=== PATIENT | male | born 1965 | race Caucasian/White ===

== ENCOUNTER 2020-12-30 21:21 | IRF | payer OTHER, SELFPAY ==
[2020-12-30 19:20] VITALS: BP 141/87; PULSE 99; RESP 22; TEMP 36.7; O2SAT 100; BMI 26.3
--- NOTE | 2020-12-30 19:49 | ADMGEN ---
This patient, Gilbert Virgen, was admitted to [facility] Room 222-01 at 1920. Patient/family oriented to hospital policies and general routines including ID bracelet, bed and alarms, visiting hours, pain management, procedures, bathroom and other care routines, personal items, smoking policy, room service/diet, and visiting hours. Information on how to activate the Rapid Response Team has been discussed. Patient/Family are encouraged to report perceived risks to care and to ask questions if they do not understand what they are told or what they should do.
[2020-12-30] MEDS: oxyCODONE HCL (*CRX) 5 MG TAB IR PO (21:38)
[2020-12-30 22:00] VITALS: BP 121/69; PULSE 66; RESP 14; TEMP 36.3; O2SAT 97
[2020-12-31] MEDS: oxyCODONE HCL (*CRX) 5 MG TAB IR PO ×4 (04:33→20:41)
[2020-12-31 04:58] LABS: Basophils Percent Auto 0.6 % (0.2-1.2); Eosinophils Absolute Auto 0.3 K/mm3 (0-0.3); Hematocrit 27.1 % (42.0-52.0); Hemoglobin 7.8 g/dL (14.0-18.0); Immature Granulocyte Absolute 0.02 K/mm3 (0.00-0.031); Immature Granulocyte Percent A 0.4 % (0-0.5); Lymphocytes Absolute Auto 1.29 K/mm3 (0.9-3.2); Lymphocytes Percent Auto 24.2 % (18.3-44.2); Mean Corpuscular HGB Conc 28.8 g/dl (32-36); Mean Corpuscular Hemoglobin 24.1 pg (26-34); Mean Corpuscular Volume 83.9 fl (80-100); Mean Platelet Volume 9.4 fl (7.4-10.4); Monocytes Percent Auto 18.4 % (2.6-8.5); Neutrophils Absolute Auto 2.7 K/mm3 (1.3-6.7); Neutrophils Percent Auto 50.4 % (45.5-73.1); Platelet Count Result 237 k/mm3 (150-375); Red Blood Count 3.23 M/mm3 (4.6-6.20); Red Cell Distribution Width 20.2 % (11.5-14.5); White Blood Count 5.3 K/mm3 (4.5-10.0)
[2020-12-31 05:18] LABS: Alanine Aminotransferase 71 U/L (4-50); Albumin Level 3.8 g/dL (3.5-5.1); Alkaline Phosphatase 110 U/L (38-126); Anion Gap 6 mmol/L (8-16); Aspartate Amino Transferase 103 U/L (17-59); Bilirubin,Total 0.8 mg/dL (0.2-1.3); Blood Urea Nitrogen 9 mg/dL (9-20); Calcium 9.3 mg/dL (8.4-10.2); Carbon Dioxide 27 mmol/L (22-30); Chloride 104 mmol/L (98-107); Estimated CRCL calculation 101 ml/min; Estimated Glomerular Filt Rate > 60; Glucose 101 mg/dL (75-110); Potassium 3.8 mmol/L (3.4-5.0); Sodium 137 mmol/L (137-145)
[2020-12-31 05:25] LABS: Anisocytosis 1+ (NORMAL); Hypochromasia 1+ (NORMAL); Platelet Estimate Adequate (Adequate)
[2020-12-31 06:00] VITALS: BP 164/94; PULSE 73; RESP 20; TEMP 36.1; O2SAT 100
[2020-12-31 08:00] VITALS: O2SAT 100
[2020-12-31] MEDS: THERAPEUTIC MULTIVITAMINS/MINERALS TAB (*BKC) 1 TABLET PO (09:55)
[2020-12-31] MEDS: ASPIRIN 81 MG ENTERIC TABLET PO (09:55)
[2020-12-31] MEDS: FOLIC ACID 1 MG TABLET PO (09:55)
[2020-12-31] MEDS: THIAMINE HCL 100 MG TABLET PO (09:56)
[2020-12-31] MEDS: LIDOCAINE 5% PATCH 2 PATCH TOPICAL (09:56)
[2020-12-31 12:49] VITALS: BMI 26.3
[2020-12-31 14:00] VITALS: BP 105/72; PULSE 94; RESP 16; TEMP 36.4; O2SAT 98
--- NOTE | 2020-12-31 15:24 | RPD ---
INDIVIDUALIZED PLAN OF CARE FOR Gilbert Virgen Brief Synthesis of Pre-Admission Screen, Post-Admission Evaluation and Therapy Evaluations: The patient presents to rehab with an L1 closed stable burst fracture and right lateral rib fractures 8-10 . Comorbidities include alcohol withdrawal syndrome, acute post-traumatic pain, anemia, hyponatremia, alcoholic cirrhosis, and hypertension. The complexity of the patient's medical management, nursing, and therapy needs require an inpatient rehab hospital stay with a physician-led interdisciplinary team approach. The patient?s needs will be best met in an intensive program vs. at a lower level of care. The patient requires physician services for medical oversight, management of alcohol withdrawal, acute post-traumatic pain, hyponatremia, anemia, and hypertension in setting of present comorbidities, and pain management. The patient requires nursing services for anticoagulation therapy, DVT prophylactics, infection protection, medication management and education, pressure relief, and wound care. Deficits include:ADLs, Balance, Endurance, Family Training/Education, Mobility, Pain Management, ROM, Safety, Strength, and Transfers. Nurse Care Manager/Case Management for: Discharge Planning and Patient/Family Counseling Physical Therapy: 5 days per week for 90 minutes. Treatments may include: Therapeutic Exercise, Gait Training, Neuromuscular Re-education, Transfer Training, Community Reintegration, Bed Mobility, Patient/Family Education, Wheelchair Mobility Group Therapy/Concurrent Therapy Rationales: -Improve attention span during functional activities in a distracted environment. -Enhance problem solving and/or adequate judgment skills during functional activities in a distracted environment. -Promote increased safety awareness in a distracted environment to reduce fall risk with functional tasks, transfers, and ambulation to allow a more safe, self-sufficient return to the home environment. -Improve dynamic balance skills to promote safety and independence with functional activities in a distracted environment for maximum gain. Occupational Therapy: 5 days per week for 90 minutes. Treatments may include: Therapeutic Exercise, Therapeutic Activity, Cognitive Training, Self-Care Transfer Training, Community Reintegration, Home Management, Patient/Family Education, Wheelchair Mobility Training, Energy Conservation Training Group Therapy/Concurrent Therapy Rationales: -Allow therapist to observe and teach generalization and carry-over of skills learned in individual therapy. -Enhance problem solving and sequencing skills during therapeutic activities in a distracted environment. -Promote increased safety awareness in a realistic setting to reduce fall risk with functional tasks due to visual and verbal distractions. -Increase functional level with ADLs, ADL transfers and use of adaptive equipment through therapeutic activities with others while promoting safety to allow a more safe, self-sufficient return home. Medical Prognosis: Good Anticipated Length of Stay: 10 days Rehab Goals: Eating Goal: 06-Independent Oral Hygiene Goal: 06-Independent Toileting Hygiene Goal: 06-Independent Shower/Bathe Self Goal: 05-Setup or Clean Up Assistance Upper Body Dressing Goal: 05-Setup or Clean Up Assistance Lower Body Dressing Goal: 05-Setup or Clean Up Assistance Putting On/Taking Off Footwear Goal: 05-Setup or Clean Up Assistance Rolling Left and Right Goal: 06-Independent Sit to Lying Goal: 06-Independent Lying to Sitting on Side of Bed Goal: 06-Independent Sit to Stand Goal: 06-Independent Chair/[id number] Transfer Goal: 06-Independent Toilet Transfer Goal: 06-Independent Car Transfer Goal: 06-Independent Walk 10' Goal: 06-Independent Walk 50' with Two Turns Goal: 06-Independent Walk 150' Goal: 06-Independent Walk 10' on Uneven Surface Goal: 06-Independent 1 Step (Curb) Goal: 04-Supervision or Touching Assistance 4 Steps Go
--- NOTE | 2020-12-31 15:37 | WPDREHABHP ---
H&P: HPI History of Present Illness Date/Time: 12/31/20 15:37 HISTORY OF PRESENT ILLNESS: The patient's primary rehab impairment category is orthopedic other 0 9 The etiologic diagnosis is L1 burst fracture I saw this patient [id number] on 12/31/2020 The patient is a 55-year-old male with past medical history of alcoholic cirrhosis, alcohol abuse who presented to [facility] on 12/25/2020 after suffering a fall. EMS was concerned of possible alcoholic withdrawal and possible seizure-like activity and patient was given IV Ativan. Patient was taken to a local hospital and his alcoholic level was reported as normal. Imaging revealed an L1 burst fracture without retropulsion and greater than 50% height loss and right rib fractures 9th through 10th with possible hemothorax and concerns of cirrhosis. Orthopedic spine service was consulted and patient was treated with non operative management using a Aj brace with weight-bearing as tolerated. Patient had spine, fall, and seizure precautions. Patient was given p.r.n. Librium for possible alcoholic withdrawal on 12/26/2020 The hospital course was significant for acute posttraumatic pain, hyponatremia, anemia, alcoholic cirrhosis and hypertension. His pain is controlled with oxycodone and [place] . Lovenox was discontinued and patient is on ASA 81 mg. COVID: The patient has not traveled outside the [place] are had contact with someone who has traveled outside the [place] in the past 21 days. Patient has not traveled to an area the [place] that is experiencing no transmission of Coronavirus and is not had [place] close personal contact with anyone that has had COVID. Patient does not have fever nor lower respiratory illness. COVID test was negative on 12/30/2020 Therapy was initiated at the acute care facility and the patient transferred to us from [facility] on 12/30/2020 FALLS OR SURGERIES: The patient has had [no] major surgeries in the 100 days prior to admission. He has had falls in the past year with injury. Eating was [INDEPENDENT] Oral Care was [INDEPENDENT] Toileting Hygiene was [INDEPENDENT] Shower/Bathing was [INDEPENDENT] Upper Body Dressing was [INDEPENDENT] Lower Body Dressing was [INDEPENDENT] Donning/[place] Footwear was [INDEPENDENT] Rolling Left and Right was [INDEPENDENT] Sit to Lying was [INDEPENDENT] Lying to Sitting was [INDEPENDENT] Sit to Stand was [INDEPENDENT] Bed to Chair Transfers was [INDEPENDENT] Toilet Transfers was [INDEPENDENT] Walking was [INDEPENDENT] [>500 feet] with [NO DEVICE] Wheelchair Mobility was [NOT APPLICABLE PRIOR TO ADMISSION] Stairs were [INDEPENDENT] CURRENT LEVEL OF FUNCTION: Eating was independent] Oral Care was supervision or touching assist Toileting Hygiene was partial to mod assist Shower/Bathing was partial to mod assist Upper Body Dressing was partial to mod assist Lower Body Dressing was substantial to max assist Donning/[place] Footwear was substantial to max assist Rolling Left and Right was partial to moderate assist Sit to Lying was partial to moderate assist Lying to Sitting was partial to moderate assist Sit to Stand was partial to moderate assist Bed to Chair Transfers were partial to moderate assist Toilet Transfers were partial to moderate assist Walking was 50 ft with Rollator walker Wheelchair Mobility was not tested Stairs were not tested GOALS: Our therapists will evaluate the patient and establish the goals. However, upon pre-admission screening, the expected goals were to be [INDEPENDENT] with self-care, [INDEPENDENT] with transfers, and [INDEPENDENT] with functional mobility so that the patient can return home. ESTIMATED LENGTH OF STAY: 5-10 days POTENTIAL BARRIERS TO DISCHARGE: [Family needs training.] Architectural barriers. ACTIVE CO-MORBIDITIES PRESENT ON ADMISSION: Active co-morbidities include L1 burst fracture, ribs right 8 through 10 fractu
[2020-12-31 22:00] VITALS: BP 159/88; PULSE 69; RESP 16; TEMP 35.4; O2SAT 100
[2021-01-01 06:00] VITALS: BP 162/89; PULSE 73; RESP 16; TEMP 35.6; O2SAT 100
[2021-01-01 08:00] VITALS: PULSE 73; RESP 16; O2SAT 100
[2021-01-01] MEDS: THERAPEUTIC MULTIVITAMINS/MINERALS TAB (*BKC) 1 TABLET PO (08:32)
[2021-01-01] MEDS: ASPIRIN 81 MG ENTERIC TABLET PO (08:32)
[2021-01-01] MEDS: FOLIC ACID 1 MG TABLET PO (08:32)
[2021-01-01] MEDS: THIAMINE HCL 100 MG TABLET PO (08:32)
[2021-01-01] MEDS: LIDOCAINE 5% PATCH 2 PATCH TOPICAL (08:33)
[2021-01-01] MEDS: oxyCODONE HCL (*CRX) 5 MG TAB IR PO ×2 (08:36→13:59)
--- NOTE | 2021-01-01 11:07 | WPDNEURORHBP ---
Subjective Date/time seen: 01/01/21 11:07 The etiologic diagnosis is L1 burst fracture, right rib fractures The patient is a 55-year-old male with past medical history of alcoholic cirrhosis, alcohol abuse who presented to [facility] on 12/25/2020 after suffering a fall. EMS was concerned of possible alcoholic withdrawal and possible seizure-like activity and patient was given IV Ativan. Patient was taken to a local hospital and his alcoholic level was reported as normal. Imaging revealed an L1 burst fracture without retropulsion and greater than 50% height loss and right rib fractures th through with possible hemothorax and concerns of cirrhosis. Orthopedic spine service was consulted and patient was treated with non operative management using a Aj brace with weight-bearing as tolerated. Patient has spine, fall, and seizure precautions. Patient was given p.r.n. Librium for possible alcoholic withdrawal on 12/26/2020 The hospital course was significant for acute posttraumatic pain, hyponatremia, anemia, alcoholic cirrhosis and hypertension. His pain is controlled with oxycodone and [place] . Lovenox was discontinued and patient is on ASA 81 mg. Therapy was initiated at the acute care facility and the patient transferred to us from [facility] on 12/30/2020 01/01/21 Patient complains of rib pain. Patient voices no other complaints. Review of Systems Constitutional: Constitutional: Reports weakness Eyes: Eyes: Reports no additional eye complaints Cardiovascular: Cardiovascular: Reports no additional cardiovascular complaints Respiratory: Respiratory: Reports no additional respiratory complaints Musculoskeletal: Musculoskeletal: Reports abnormal gait and Reports myalgias Neurologic: Reports Neuro-related abnormal movements, Reports abnormal gait, Reports memory loss and Reports weakness Psychiatric: Psychiatric: Reports memory loss Functional Status Ambulation Ability Ability to Ambulate 10 Feet: Standby Assistance Ability to Ambulate 50 Feet With 2 Turns: Contact Guard Ability to Ambulate 150 Feet: Contact Guard Ambulation Assistive Devices: Cane Transfers Ability Ability to Transfer In/Out of Chair: Standby Assistance Exam Const: General: comfortable and no acute distress Eyes: EOM: EOMs intact bilaterally Neck: Neck: supple Resp: Auscultation: diminished lung sounds Cardio: Rate: regular rate Rhythm: regular rhythm GI: Auscultation: normal bowel sounds Skin: Other: abrasion is noted to the left elbow and right forehead Neuro: Other: bilateral upper and lower extremity strength are 4/5. Psych: Mental Status: mental status grossly normal Objective Data Vital Signs Vital Signs: Vital Signs - 24 hr 12/31/20 14:00 12/31/20 22:00 01/01/21 06:00 Temperature 36.4 C 35.4 C L 35.6 C L Pulse Rate 94 69 73 Respiratory Rate 16 16 16 Blood Pressure 105/72 159/88 H 162/89 H Pulse Oximetry 98 100 100 Intake/Output Intake/Output: Intake & Output 12/29/20 12/30/20 12/31/20 01/01/21 23:59 23:59 23:59 23:59 Intake Total 1200 240 Balance 1200 240 Meds/Results Medications: Active Medications Generic Name Dose Route Start Last Admin Trade Name Freq PRN Reason Stop Dose Admin Acetaminophen 1,000 mg 12/30/20 20:15 Acetaminophen 500 Mg Tablet PO Q6H PRN Mild Pain (1-3) Aspirin 81 mg 12/31/20 09:00 01/01/21 08:32 Aspirin 81 Mg Enteric Tablet PO 81 mg DAILY TERRIE Administration Folic Acid 1 mg 12/31/20 09:00 01/01/21 08:32 Folic Acid 1 Mg Tablet PO 1 mg DAILY TERRIE Administration Lidocaine 2 patch 12/31/20 09:00 01/01/21 08:33 Lidocaine 5% Patch TOPICAL 2 patch DAILY TERRIE Administration Melatonin 3 mg 12/30/20 21:54 Melatonin 3 Mg Tablet PO HS PRN Sleep Multivitamins/Calcium 1 tablet 12/31/20 09:00 01/01/21 08:32 Therapeutic Multivitamins/Minerals Tab (*Bkc) PO 1 tablet QAM TERRIE Adm
[2021-01-01 14:00] VITALS: BP 127/72; PULSE 92; RESP 20; TEMP 35.8; O2SAT 100
[2021-01-01] MEDS: ACETAMINOPHEN 325 MG TABLET 650 MG PO (17:00)
[2021-01-01 20:00] VITALS: PULSE 74; RESP 16; O2SAT 98
[2021-01-01 21:02] VITALS: BP 128/74; PULSE 74; RESP 16; TEMP 36.4; O2SAT 98
[2021-01-02 05:52] VITALS: BP 154/79; PULSE 76; RESP 16; TEMP 35.4; O2SAT 98
--- NOTE | 2021-01-02 08:50 | WPDNEURORHBP ---
Subjective Date/time seen: 01/02/21 08:50 Interval history: The etiologic diagnosis is L1 burst fracture, right rib fractures The patient is a 55-year-old male with past medical history of alcoholic cirrhosis, alcohol abuse who presented to [facility] on 12/25/2020 after suffering a fall. EMS was concerned of possible alcoholic withdrawal and possible seizure-like activity and patient was given IV Ativan. Patient was taken to a local hospital and his alcoholic level was reported as normal. Imaging revealed an L1 burst fracture without retropulsion and greater than 50% height loss and right rib fractures th through 10th with possible hemothorax and concerns of cirrhosis. Orthopedic spine service was consulted and patient was treated with non operative management using a [place] brace with weight-bearing as tolerated. Patient has spine, fall, and seizure precautions. Patient was given p.r.n. Librium for possible alcoholic withdrawal on 12/26/2020 The hospital course was significant for acute posttraumatic pain, hyponatremia, anemia, alcoholic cirrhosis and hypertension. His pain is controlled with oxycodone and [place] . Lovenox was discontinued and patient is on ASA 81 mg. Therapy was initiated at the acute care facility and the patient transferred to us from [facility] on 12/30/2020 Patient is doing well with therapy. Pain is minimal. Spoke with patient regarding opioid use/alcohol use. Patient is willing to decrease oxycodone for breakthrough pain only. Review of Systems Constitutional: Constitutional: Reports weakness Functional Status Ambulation Ability Ability to Ambulate 10 Feet: Contact Guard Ability to Ambulate 50 Feet With 2 Turns: Contact Guard Ability to Ambulate 150 Feet: Contact Guard Ambulation Assistive Devices: Cane Transfers Ability Ability to Transfer In/Out of Chair: Standby Assistance Exam Const: General: comfortable and no acute distress Eyes: EOM: EOMs intact bilaterally Neck: Neck: supple Resp: Auscultation: diminished lung sounds Cardio: Rate: regular rate Rhythm: regular rhythm GI: Auscultation: normal bowel sounds Skin: Other: abrasion is noted to the left elbow and right forehead Neuro: Other: bilateral upper and lower extremity strength are 4/5. Psych: Mental Status: mental status grossly normal Objective Data Vital Signs Vital Signs: Vital Signs - 24 hr 01/01/21 14:00 01/01/21 20:00 01/01/21 21:02 Temperature 35.8 C L 36.4 C L Pulse Rate 92 74 74 Respiratory Rate 20 16 16 Blood Pressure 127/72 128/74 Pulse Oximetry 100 98 98 01/02/21 05:52 Temperature 35.4 C L Pulse Rate 76 Respiratory Rate 16 Blood Pressure 154/79 H Pulse Oximetry 98 Intake/Output Intake/Output: Intake & Output 12/30/20 12/31/20 01/01/21 01/02/21 23:59 23:59 23:59 23:59 Intake Total 1200 720 Balance 1200 720 Meds/Results Medications: Active Medications Generic Name Dose Route Start Last Admin Trade Name Freq PRN Reason Stop Dose Admin Acetaminophen 650 mg 01/01/21 17:00 01/01/21 17:00 Acetaminophen 325 Mg Tablet PO 01/05/21 11:17 650 mg BID TERRIE Administration Acetaminophen 325 mg 01/01/21 11:34 Acetaminophen 325 Mg Tablet PO Q6H PRN Mild Pain (1-3) or Fever Aspirin 81 mg 12/31/20 09:00 01/01/21 08:32 Aspirin 81 Mg Enteric Tablet PO 81 mg DAILY TERRIE Administration Folic Acid 1 mg 12/31/20 09:00 01/01/21 08:32 Folic Acid 1 Mg Tablet PO 1 mg DAILY TERRIE Administration Lidocaine 2 patch 12/31/20 09:00 01/01/21 08:33 Lidocaine 5% Patch TOPICAL 2 patch DAILY TERRIE Administration Melatonin 3 mg 12/30/20 21:54 Melatonin 3 Mg Tablet PO HS PRN Sleep Multivitamins/Calcium 1 tablet 12/31/20 09:00 01/01/21 08:32 Therapeutic Multivitamins/Minerals Tab (*Bkc) PO 1 tablet QAM TERRIE Administration Oxycodone HCl 5 mg 01/01/21 11:19 01/01/21 13:59 Oxycodone Hcl (*Crx)
[2021-01-02] MEDS: oxyCODONE HCL (*CRX) 2.5 MG TAB IR PO ×2 (09:10→14:23)
[2021-01-02] MEDS: ACETAMINOPHEN 325 MG TABLET 650 MG PO ×2 (09:12→17:52)
[2021-01-02] MEDS: LIDOCAINE 5% PATCH 2 PATCH TOPICAL (09:13)
[2021-01-02] MEDS: ASPIRIN 81 MG ENTERIC TABLET PO (09:13)
[2021-01-02] MEDS: THERAPEUTIC MULTIVITAMINS/MINERALS TAB (*BKC) 1 TABLET PO (09:13)
[2021-01-02] MEDS: THIAMINE HCL 100 MG TABLET PO (09:13)
[2021-01-02] MEDS: FOLIC ACID 1 MG TABLET PO (09:13)
[2021-01-02 14:00] VITALS: BP 153/78; PULSE 86; RESP 16; TEMP 36.6; O2SAT 100
[2021-01-02 20:00] VITALS: PULSE 72; RESP 16; O2SAT 100
[2021-01-02 22:00] VITALS: BP 154/80; PULSE 72; RESP 16; TEMP 36.4; O2SAT 100
[2021-01-03 06:00] VITALS: BP 167/88; PULSE 81; RESP 16; TEMP 37.1; O2SAT 100
[2021-01-03] MEDS: THIAMINE HCL 100 MG TABLET PO (09:20)
[2021-01-03] MEDS: THERAPEUTIC MULTIVITAMINS/MINERALS TAB (*BKC) 1 TABLET PO (09:20)
[2021-01-03] MEDS: ASPIRIN 81 MG ENTERIC TABLET PO (09:20)
[2021-01-03] MEDS: LIDOCAINE 5% PATCH 2 PATCH TOPICAL (09:20)
[2021-01-03] MEDS: ACETAMINOPHEN 325 MG TABLET 650 MG PO ×2 (09:20→12:39)
[2021-01-03] MEDS: FOLIC ACID 1 MG TABLET PO (09:20)
--- NOTE | 2021-01-03 09:38 | WPDNEURORHBP ---
Subjective Date/time seen: 01/03/21 09:38 Interval history: The etiologic diagnosis is L1 burst fracture, right rib fractures The patient is a 55-year-old male with past medical history of alcoholic cirrhosis, alcohol abuse who presented to [facility] on 12/25/2020 after suffering a fall. EMS was concerned of possible alcoholic withdrawal and possible seizure-like activity and patient was given IV Ativan. Patient was taken to a local hospital and his alcoholic level was reported as normal. Imaging revealed an L1 burst fracture without retropulsion and greater than 50% height loss and right rib fractures th through 10th with possible hemothorax and concerns of cirrhosis. Orthopedic spine service was consulted and patient was treated with non operative management using a [place] brace with weight-bearing as tolerated. Patient has spine, fall, and seizure precautions. Patient was given p.r.n. Librium for possible alcoholic withdrawal on 12/26/2020 The hospital course was significant for acute posttraumatic pain, hyponatremia, anemia, alcoholic cirrhosis and hypertension. His pain is controlled with oxycodone and [place] . Lovenox was discontinued and patient is on ASA 81 mg. Therapy was initiated at the acute care facility and the patient transferred to us from [facility] on 12/30/2020 01/03/2021atient voices no complaints except for pain to ribs. Lidoderm patches and Tylenol appear adequate with occassional use of Oxycodone. Patient is seen during occupational therapy. Patient is at supervision with transfers and gait using a straight cane. Patient tends to grab onto furniture when making turns. Overall endurance is still limited. Balance deficits are still noted. Blood pressures have been running high will continue to monitor . Patient is feeling that therapy is going well Review of Systems Review of Systems: All systems reviewed & are unremarkable except as noted in HPI and below Functional Status Ambulation Ability Ability to Ambulate 10 Feet: Contact Guard Ability to Ambulate 50 Feet With 2 Turns: Contact Guard Ability to Ambulate 150 Feet: Contact Guard Ambulation Assistive Devices: Cane Transfers Ability Ability to Transfer In/Out of Chair: Standby Assistance Exam Narrative: Exam Narrative: patient seen during occupational therapy. Patient tends to have a waddling type gait. Patient utilizes a straight cane appropriately except for when patient turns. Patient tends to grab on to wall or desk when turning. Patient states that he has always done this. Const: General: comfortable and no acute distress Eyes: EOM: EOMs intact bilaterally Neck: Neck: supple Resp: Auscultation: diminished lung sounds Cardio: Rate: regular rate Rhythm: regular rhythm GI: Auscultation: normal bowel sounds Skin: Other: abrasion is noted to the left elbow and right forehead Neuro: Other: bilateral upper and lower extremity strength are 4/5. Psych: Mental Status: mental status grossly normal Objective Data Vital Signs Vital Signs: Vital Signs - 24 hr 01/02/21 14:00 01/02/21 20:00 01/02/21 22:00 Temperature 36.6 C 36.4 C Pulse Rate 86 72 72 Respiratory Rate 16 16 16 Blood Pressure 153/78 H 154/80 H Pulse Oximetry 100 100 100 01/03/21 06:00 Temperature 37.1 C Pulse Rate 81 Respiratory Rate 16 Blood Pressure 167/88 H Pulse Oximetry 100 Intake/Output Intake/Output: Intake & Output 12/31/20 01/01/21 01/02/21 01/03/21 23:59 23:59 23:59 23:59 Intake Total 1200 720 840 840 Balance 1200 720 840 840 Meds/Results Medications: Active Medications Generic Name Dose Route Start Last Admin Trade Name Freq PRN Reason Stop Dose Admin Acetaminophen 650 mg 01/01/21 17:00 01/03/21 09:20 Acetaminophen 325 Mg Tablet PO 01/05/21 11:17 650 mg BID TERRIE Administration Acetaminophen 325 mg 01/01/21 11:34 Acetaminophen 325 Mg Tablet PO Q6H PRN Mild Pain (1-3) o
[2021-01-03 14:00] VITALS: BP 144/86; PULSE 86; RESP 16; TEMP 36; O2SAT 100
[2021-01-03 22:00] VITALS: BP 152/85; PULSE 75; RESP 16; TEMP 36.1; O2SAT 100
[2021-01-03] MEDS: oxyCODONE HCL (*CRX) 2.5 MG TAB IR PO (22:41)
[2021-01-04 06:00] VITALS: BP 143/93; PULSE 74; RESP 18; TEMP 36.7; O2SAT 98
[2021-01-04] MEDS: ACETAMINOPHEN 325 MG TABLET 650 MG PO ×2 (06:30→12:06)
[2021-01-04] MEDS: THERAPEUTIC MULTIVITAMINS/MINERALS TAB (*BKC) 1 TABLET PO (09:01)
[2021-01-04] MEDS: ASPIRIN 81 MG ENTERIC TABLET PO (09:01)
[2021-01-04] MEDS: FOLIC ACID 1 MG TABLET PO (09:01)
[2021-01-04] MEDS: THIAMINE HCL 100 MG TABLET PO (09:01)
[2021-01-04] MEDS: LIDOCAINE 5% PATCH 2 PATCH TOPICAL (09:01)
[2021-01-04 14:00] VITALS: BP 137/78; PULSE 81; RESP 20; TEMP 36.2; O2SAT 100
[2021-01-04 20:40] VITALS: PULSE 76; RESP 18; O2SAT 97
[2021-01-04 21:55] VITALS: BP 153/88; PULSE 76; RESP 18; TEMP 35.7; O2SAT 97
[2021-01-05 06:00] VITALS: BP 144/80; PULSE 83; RESP 16; TEMP 35.8; O2SAT 100
[2021-01-05] MEDS: oxyCODONE HCL (*CRX) 2.5 MG TAB IR PO (06:15)
[2021-01-05 08:00] VITALS: PULSE 83; RESP 16; O2SAT 100
[2021-01-05] MEDS: FOLIC ACID 1 MG TABLET PO (09:14)
[2021-01-05] MEDS: LIDOCAINE 5% PATCH 2 PATCH TOPICAL (09:14)
[2021-01-05] MEDS: THIAMINE HCL 100 MG TABLET PO (09:14)
[2021-01-05] MEDS: ASPIRIN 81 MG ENTERIC TABLET PO (09:14)
[2021-01-05] MEDS: THERAPEUTIC MULTIVITAMINS/MINERALS TAB (*BKC) 1 TABLET PO (09:14)
[2021-01-05] MEDS: ACETAMINOPHEN 325 MG TABLET 650 MG PO ×2 (09:16→12:49)
--- NOTE | 2021-01-05 11:29 | WPDNEURORHBP ---
Subjective Date/time seen: 01/05/21 11:29 Interval history: The etiologic diagnosis is L1 burst fracture, right rib fractures The patient is a 55-year-old male with past medical history of alcoholic cirrhosis, alcohol abuse who presented to [facility] on 12/25/2020 after suffering a fall. EMS was concerned of possible alcoholic withdrawal and possible seizure-like activity and patient was given IV Ativan. Patient was taken to a local hospital and his alcoholic level was reported as normal. Imaging revealed an L1 burst fracture without retropulsion and greater than 50% height loss and right rib fractures th through 10th with possible hemothorax and concerns of cirrhosis. Orthopedic spine service was consulted and patient was treated with non operative management using a [place] brace with weight-bearing as tolerated. Patient has spine, fall, and seizure precautions. Patient was given p.r.n. Librium for possible alcoholic withdrawal on 12/26/2020 The hospital course was significant for acute posttraumatic pain, hyponatremia, anemia, alcoholic cirrhosis and hypertension. His pain is controlled with oxycodone and [place] . Lovenox was discontinued and patient is on ASA 81 mg. Therapy was initiated at the acute care facility and the patient transferred to us from [facility] on 12/30/2020 01/03/2021atient voices no complaints except for pain to ribs. Lidoderm patches and Tylenol appear adequate with occasional use of Oxycodone. Patient is seen during occupational therapy. Patient is at supervision with transfers and gait using a straight cane. Patient tends to grab onto furniture when making turns. Overall endurance is still limited. Balance deficits are still noted Blood pressures have been running high will continue to monitor . Patient is feeling that therapy is going well 01/05/21 Patient voices no complaints Review of Systems Review of Systems: All systems reviewed & are unremarkable except as noted in HPI and below Functional Status Ambulation Ability Ability to Ambulate 10 Feet: Independent Ability to Ambulate 50 Feet With 2 Turns: Independent Ability to Ambulate 150 Feet: Independent Ambulation Assistive Devices: Cane Transfers Ability Ability to Transfer In/Out of Chair: Independent Exam Narrative: Exam Narrative: patient seen during physical therapy. Patient tends to have a waddling type gait. Patient utilizes a straight cane for gait. Transfers are independent. Lungs are clear to auscultation. Heart rate and rhythm is regular. Patient tends to have a dry cough, but has a longstanding history of smoking. Patient wishes no treatment. Objective Data Vital Signs Vital Signs: Vital Signs - 24 hr 01/04/21 14:00 01/04/21 20:40 01/04/21 21:55 Temperature 36.2 C L 35.7 C L Pulse Rate 81 76 76 Respiratory Rate 20 18 18 Blood Pressure 137/78 153/88 H Pulse Oximetry 100 97 97 01/05/21 06:00 01/05/21 08:00 Temperature 35.8 C L Pulse Rate 83 83 Respiratory Rate 16 16 Blood Pressure 144/80 H Pulse Oximetry 100 100 Intake/Output Intake/Output: Intake & Output 01/02/21 01/03/21 01/04/21 01/05/21 23:59 23:59 23:59 23:59 Intake Total 840 2280 2040 600 Balance 840 2280 2040 600 Meds/Results Medications: Active Medications Generic Name Dose Route Start Last Admin Trade Name Freq PRN Reason Stop Dose Admin Acetaminophen 325 mg 01/01/21 11:34 Acetaminophen 325 Mg Tablet PO Q6H PRN Mild Pain (1-3) or Fever Acetaminophen 650 mg 01/03/21 13:00 01/05/21 09:16 Acetaminophen 325 Mg Tablet PO 650 mg 0800,1300 TERRIE Administration Aspirin 81 mg 12/31/20 09:00 01/05/21 09:14 Aspirin 81 Mg Enteric Tablet PO 81 mg DAILY TERRIE Administration Folic Acid 1 mg 12/31/20 09:00 01/05/21 09:14 Folic Acid 1 Mg Tablet PO 1 mg DAILY TERRIE Administration Lidocaine 2 patch 12/31/20 09:00 01/05/21 09:14 Lidocaine 5% Patch TOPICAL 2 patch
[2021-01-05 14:00] VITALS: BP 139/82; PULSE 90; RESP 16; TEMP 36.1; O2SAT 100
[2021-01-05 20:00] VITALS: PULSE 89; RESP 18; O2SAT 98
[2021-01-05 21:52] VITALS: BP 153/80; PULSE 89; RESP 18; TEMP 36; O2SAT 98
[2021-01-06 06:00] VITALS: BP 167/93; PULSE 83; RESP 18; TEMP 35.7; O2SAT 99
[2021-01-06 06:42] VITALS: BP 157/88
[2021-01-06] MEDS: oxyCODONE HCL (*CRX) 2.5 MG TAB IR PO (06:48)
[2021-01-06 08:00] VITALS: PULSE 83; RESP 18; O2SAT 99
[2021-01-06] MEDS: THERAPEUTIC MULTIVITAMINS/MINERALS TAB (*BKC) 1 TABLET PO (09:24)
[2021-01-06] MEDS: FOLIC ACID 1 MG TABLET PO (09:24)
[2021-01-06] MEDS: ASPIRIN 81 MG ENTERIC TABLET PO (09:24)
[2021-01-06] MEDS: THIAMINE HCL 100 MG TABLET PO (09:25)
[2021-01-06] MEDS: LIDOCAINE 5% PATCH 2 PATCH TOPICAL (09:25)
[2021-01-06] MEDS: ACETAMINOPHEN 325 MG TABLET 650 MG PO ×2 (09:26→12:24)
--- NOTE | 2021-01-06 11:54 | PM.DS ---
DS: Admitting Diagnosis Admitting Diagnosis Admitting Diagnosis: Fall, rib fractures, L1 fracture DS: Discharge Diagnosis Discharge Diagnosis (1) L1 vertebral fracture: Code(s): S32.019A - Unspecified fracture of first lumbar vertebra, initial encounter for closed fracture Status: Acute Assessment and Plan: Patient given Lidoderm patch and tylenol for pain. (2) Ribs, multiple fractures: Code(s): S22.49XA - Multiple fractures of ribs, unspecified side, initial encounter for closed fracture Status: Acute Assessment and Plan: Lidoderm patch and p.r.n. tylenol (3) Hepatitis C: Code(s): B19.20 - Unspecified viral hepatitis C without hepatic coma Status: Acute (4) Alcoholism: Code(s): F10.20 - Alcohol dependence, uncomplicated Status: Acute Assessment and Plan: counseling given. Patient will choose to continue to drink. NO opioids will be given to patient at discharge. (5) Tobacco abuse: Code(s): Z72.0 - Tobacco use Status: Acute Assessment and Plan: counseling given. (6) Hypertension: Code(s): I10 - Essential (primary) hypertension Status: Acute Assessment and Plan: fluctuates. Follow up with Dr. Murillo his primary care physician to discuss starting him on medication. (7) Hyperlipidemia: Code(s): E78.5 - Hyperlipidemia, unspecified Status: Acute Assessment and Plan: will continue to follow. k (8) History of stroke: Code(s): Z86.73 - Personal history of transient ischemic attack (TIA), and cerebral infarction without residual deficits Status: Acute DS: Summary Hospital Course Hospital Course: Interval history: The etiologic diagnosis is L1 burst fracture, right rib fractures The patient is a 55-year-old male with past medical history of alcoholic cirrhosis, alcohol abuse who presented to [facility] on 12/25/2020 after suffering a fall. EMS was concerned of possible alcoholic withdrawal and possible seizure-like activity and patient was given IV Ativan. Patient was taken to a local hospital and his alcoholic level was reported as normal. Imaging revealed an L1 burst fracture without retropulsion and greater than 50% height loss and right rib fractures th through 10th with possible hemothorax and concerns of cirrhosis. Orthopedic spine service was consulted and patient was treated with non operative management using a [place] brace with weight-bearing as tolerated. Patient has spine, fall, and seizure precautions. Patient was given p.r.n. Librium for possible alcoholic withdrawal on 12/26/2020 The hospital course was significant for acute posttraumatic pain, hyponatremia, anemia, alcoholic cirrhosis and hypertension. His pain is controlled with oxycodone and [place] . Lovenox was discontinued and patient is on ASA 81 mg. Therapy was initiated at the acute care facility and the patient transferred to us from [facility] on 12/30/2020 REHAB HOSPITAL COURSE: Patient remained medically stable. Pain was controlled with Lidoderm patch, Tylenol and the occasional oxycodone. Patient was given no prescriptions for oxycodone. Patient was also counseled on sobriety of alcohol and the affects of alcohol Patient gave no inclination to this examiner that he would stop drinking. GOALS: Eating INDEPENDENT Oral Care INDEPENDENT Toileting Hygiene INDEPENDENT Shower/Bathing setup Upper Body Dressing setup Lower Body Dressing setup [place] Footwear setup Rolling Left and Right [INDEPENDENT] Sit to Lying [INDEPENDENT] Lying to Sitting [INDEPENDENT] Sit to Stand [INDEPENDENT] Bed to Chair Transfers [INDEPENDENT] Toilet Transfers [INDEPENDENT] Car Transfers [INDEPENDENT] Walking 10' [INDEPENDENT] Walking 50' with Two Turns [INDEPENDENT] Walking 150' [INDEPENDENT] Curb or Step [INDEPENDENT] 4 Steps [INDEPENDENT] 12 Steps [INDEPENDENT] Picking Up Object
== END 2021-01-06 13:00 | disposition home health service (06) | DRG 561 ==
PROVIDERS: Admitting Provider Physical Medicine & Rehabilitation; PCP Family Medicine Adolescent Medicine; Visit Provider Physical Medicine & Rehabilitation
DX: S32.011D Stable burst fracture of first lumbar vertebra, subsequent encounter for fracture with routine healing (principal); S22.41XD Multiple fractures of ribs, right side, subsequent encounter for fracture with routine healing; W19.XXXD Unspecified fall, subsequent encounter; K70.30 Alcoholic cirrhosis of liver without ascites; F10.10 Alcohol abuse, uncomplicated; D64.9 Anemia, unspecified; E78.5 Hyperlipidemia, unspecified; F17.210 Nicotine dependence, cigarettes, uncomplicated; I10 Essential (primary) hypertension; Z86.73 Personal history of transient ischemic attack (TIA), and cerebral infarction without residual deficits
CPT/HCPCS: 36415; 80053; 85025; 92523; 97110; 97116; 97161; 97165; 97530; 97535; A9270

== ENCOUNTER 2024-06-16 17:25 | Inpatient (IN) | payer OTHER, SELFPAY ==
[2024-06-16] VITALS (18 sets, daily range): BP systolic 96–122; BP diastolic 49–104; PULSE 83–104; RESP 15–23; TEMP 36.8–37.2; O2SAT 93–96; BMI 25.9
--- NOTE | ~2024-06-16 | CT_ITS ---
EXAMINATION: CT brain wo con DATE: 06/16/2024 19:47 INDICATION: mental status changes . TECHNIQUE: Computed tomography (CT) of the head was performed without intravenous contrast. The mA wa s adjusted according to patient size. Iterative reconstruction technique was employed. The dose-lengt h product was 605.33 mGy-cm. COMPARISON: 05/29/2019; MR brain 05/30/2019. FINDINGS: No acute intracranial hemorrhage or extra-axial fluid collection. No hydrocephalus, mass, or herniation. No acute ischemic infarct. Unremarkable dural venous sinus attenuation. No acute osseous abnormality. The aerated spaces are clear. Old left posterior limb internal capsule and focal periventricular infarcts. IMPRESSION: No acute intracranial process. Reviewed, dictated and finalized at location K. TE ADVISOR
--- NOTE | ~2024-06-16 | XR_ITS ---
EXAM: XR foot LT min 3V, XR tibia fibula LT 2V DATE: 06/16/2024 18:09 (accession [id number]), 06/16/2024 18:10 (accession [id number]) HISTORY: wound . COMPARISON: None available. FINDINGS: Decreased mineralization. No fracture or dislocation. No lytic or blastic lesion. Moderate scattered degenerative change. Extensive erosion over the inferior aspect of the distal fifth metata rsal, best seen in the lateral view. Vascular calcification. Plantar and Achilles enthesopathy. Exten sive soft tissue irregularity over the dorsum of the foot including subcutaneous gas at the dorsal fo ot, the medial foot, and over the heel. Soft tissue swelling over the ball of foot. Degenerative dueñas ge at the knee. Atherosclerotic vascular calcification. Extensive stenting of the distal femoral and popliteal artery. IMPRESSION: Findings concerning for osteomyelitis involving the inferior aspect of the distal left fi fth metatarsal. Extensive cutaneous defects/ulcerations and likely cellulitis. Reviewed, dictated and finalized at location K. [employer] IMPRESSION: Findings concerning for osteomyelitis involving the inferior aspect of the distal left fifth metatarsal. Extensive cutaneous defects/ulcerations a nd likely cellulitis.
--- NOTE | ~2024-06-16 | CT_ITS ---
EXAMINATION: CTA abd aorta runoff DATE: 06/16/2024 19:52 INDICATION: left foot necrotic wound, post code TECHNIQUE: Computed tomography (CT) of the abdomen and pelvis was performed with 100 mL Omnipaque-350 intravenous contrast. Automated exposure control and iterative reconstruction technique were employe d. The dose-length product was 1842.63 mGy-cm. COMPARISON: None. FINDINGS: Lower thorax: Unremarkable Liver: Nodular liver border. Biliary/Gallbladder: Cholelithiasis. No bile duct dilation. Pancreas: No mass or duct dilation. Spleen: Normal. Adrenals:No mass. Kidneys: No suspicious mass, obstructing stone, or hydronephrosis. GI tract: Mild distal esophageal and gastric wall edema No small or large bowel dilation. Appendix no t confidently visualized. Diverticulosis without diverticulitis. Mesentery/Peritoneum: No ascites, mass, or free air. Retroperitoneum: No mass. Extensive atherosclerotic calcifications. No aneurysm or dissection. No sev ere major aortic branch vessel origin occlusion. Occluded left internal iliac artery, with distal rec onstitution. Pelvis: Distended bladder with moderate wall thickening. Mild prostatomegaly. Soft Tissues: Soft tissues and body wall unremarkable. Bones: No acute osseous finding. Uncomplicated appearing screw and plate fixation of the proximal ri ght tibia. Intramedullary fausto fixation of the right femur. Focal osteopenia in the inferior aspect of the left fifth metatarsal. Moderate wedge deformity at L1. Mild wedge deformity at L3. Right lower extremity: Patent right superficial femoral artery stent. Multifocal calcified plaques in the distal superior femoral and popliteal arteries causing severe stenoses. Posterior tibial artery occlusion. There is slow flow below the level of ankle via the anterior tibial and peroneal arteries. Severe subcutaneous fat stranding in the right foot. Left lower extremity: Extensive stenting on the left from the common femoral artery to the trifurcati on. There is no vessel flow below the level of the ankle. There is extensive subcutaneous swelling an d edema over the left foot. Soft tissue defect over the medial and dorsum of the left foot. IMPRESSION: Mild esophagitis/gastritis. Possible cirrhosis. Cystitis versus chronic bladder wall thickening from outlet obstruction. 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 Vertebral body endplate deformities resulting in moderate and mild degrees of height loss at L1 and L 3 respectively, may be chronic or acute, correlate for pain/tenderness or history of recent trauma. Extensive atherosclerotic disease is seen generally, with extensive stenting of the bilateral lower e xtremity arteries. There is multivessel flow below the level of the ankle in both lower extremities. Findings concerning for osteomyelitis involving the inferior aspect of the distal fifth metatarsal. E xtensive left foot soft tissue ulcerations with overlying edema or cellulitis. Diffuse edema/cellulitis of the right foot. Reviewed, dictated and finalized at location K. AL GROOMER IMPRESSION: Mild esophagitis/gastritis. Possible cirrhosis. Cystitis versus chronic bladder wall thickening from outlet obstruction. 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 Vertebral body endplate deformities resulting in moderate and mild degrees of h eight loss at L1 and L3 respectively, may be chronic or acute, correlate for pa in/tenderness or history of recent trauma. Extensive atherosclerotic disease is seen generally, with extensive stenting of the bilateral lower extremity arteries. There is multivessel flow below the le ann of the ankle in both lower extremities. Findings concerning for osteomyelitis involving the inferior aspect of the dist al fifth metatarsal. Extensive left foot soft tissue ulcerations with overlying edema or cellulitis. Diffuse edema/cellulitis of the right foot.
--- NOTE | ~2024-06-16 | CT_ITS ---
EXAMINATION: CTA chest DATE: 06/16/2024 19:52 INDICATION: post code TECHNIQUE: Computed tomography angiography of the chest was performed with 150 mL Omnipaque-350 intra venous contrast in the arterial phase with. Automated exposure control and iterative reconstruction t echnique were employed. The dose-length product was 1842.63 mGy-cm. COMPARISON: None. FINDINGS: CHEST: Thoracic aorta: No significant dilation or calcification. Mild arch calcification. Lung parenchyma and airways: Mild dependent atelectasis, otherwise clear. Patent airways. Thoracic inlet, axillae and chest wall: Subcentimeter left thyroid lobe nodule, requiring no addition al evaluation at this time. No soft tissue mass. No axillary lymphadenopathy. Mediastinum: No mass or lymphadenopathy. Heart and pericardium: Normal heart size. No pericardial effusion. Coronary artery calcifications: Mild. Pleura: No effusion or mass. Upper abdomen: No significant finding. Thoracic bones: No acute osseous finding in the chest. Old bilateral healed rib fractures. IMPRESSION: No acute thoracic process detected. Reviewed, dictated and finalized at location K. AL WARDEN
--- NOTE | 2024-06-16 17:44 | ECG_ITS ---
Test Date: 2024-06-16 17:41:44 Measurements Intervals [place] Rate: 100 P: 23 [place]: 185 QRS: 35 QRSD: 97 T: 67 QT: 342 QTc: 443 Interpretive Statements SINUS TACHYCARDIA DELAYED PRECORDIAL R/S TRANSITION BASELINE ARTIFACT- I, II, III, AVR, AVL, AVF, V1-V6 BORDERLINE ECG No previous ECG available for comparison Electronically Signed On 06-16-2024 18:20:15 BALLAST REGULATOR OPERATOR by Gerardo Rosas D.O.
[2024-06-16 18:47] LABS: Basophils Absolute Auto 0.1 K/mm3 (0.0-0.1); Basophils Percent Auto 0.3 % (0.2-1.2); Eosinophils Absolute Auto 0.1 K/mm3 (0-0.3); Eosinophils Percent Auto 0.3 % (0-4.4); Hematocrit 24.4 % (42.0-52.0); Hemoglobin 7.9 g/dL (14.0-18.0); Immature Granulocyte Absolute 0.72 K/mm3 (0.00-0.031); Immature Granulocyte Percent A 3.7 % (0-0.5); Lymphocytes Absolute Auto 1.14 K/mm3 (0.9-3.2); Lymphocytes Percent Auto 5.9 % (18.3-44.2); Mean Corpuscular HGB Conc 32.4 g/dl (32-36); Mean Corpuscular Hemoglobin 27.9 pg (26-34); Mean Corpuscular Volume 86.2 fl (80-100); Mean Platelet Volume 9.3 fl (7.4-10.4); Monocytes Absolute Auto 1.8 K/mm3 (0.1-0.6); Monocytes Percent Auto 9.3 % (2.6-8.5); Neutrophils Absolute Auto 15.7 K/mm3 (1.3-6.7); Neutrophils Percent Auto 80.5 % (45.5-73.1); Platelet Count Result 358 k/mm3 (150-375); Red Blood Count 2.83 M/mm3 (4.6-6.20); Red Cell Distribution Width 16.9 % (11.5-14.5); White Blood Count 19.4 K/mm3 (4.5-10.0)
[2024-06-16 18:56] LABS: Lactic Acid Reflex 2.2 mmol/L (0.7-2.0)
[2024-06-16 18:59] LABS: INR 1.3; Prothrombin Time 16.4 Seconds (11.1-14.7)
--- NOTE | 2024-06-16 18:59 | ED.GENADULT ---
HPI - General Adult General Chief complaint: Altered Mental Status <Navdeep Almaguer MD - Last Filed: 06/16/24 19:03> Stated complaint: ams <Navdeep Almaguer MD - Last Filed: 06/16/24 19:03> Time Seen by Provider: 06/16/24 17:33 <Navdeep Almaguer MD - Last Filed: 06/16/24 19:03> History of Present Illness HPI narrative: the patient is 59-year-old gentleman who presents from [facility] care after having an episode where the facility felt that he was pulseless and apneic and started CPR the patient proceeded to awake initially confused and then became back to his baseline of alert oriented x3 the patient has a documented DNR and also reports that he has had foul drainage and has had a wound on his left foot for some time that has been getting worse. <Navdeep Almaguer MD - Last Filed: 06/16/24 19:03> Related Data Home medications: Home Medications Medication Instructions Recorded Confirmed polyethylene glycol 3350 17 gram 17 g PO DAILY PRN Constipation 12/30/20 12/22/22 oral powder packet amlodipine 2.5 mg tablet 2.5 mg PO DAILY 01/30/24 <Navdeep Almaguer MD - Last Filed: 06/16/24 19:03> Allergies/adverse reactions: Allergies Allergy/AdvReac Type Severity Reaction Status Date / Time peanut Allergy Swelling Verified 01/30/24 10:27 mite extract Allergy Nasal Uncoded 01/30/24 10:27 Discharge <Navdeep Almaguer MD - Last Filed: 06/16/24 19:03> Review of Systems Review of Systems: A 10 system review of systems was completed on the patient and is negative except for what is stated in the HPI. Nursing and ancillary documentation was reviewed. <Navdeep Almaguer MD - Last Filed: 06/16/24 19:03> PMFSH Past Medical History Medical History: Medical History Alcoholism Fracture of shaft of right femur with routine healing (09/2022) ORIF History of fracture of right hip History of stroke Hyperlipidemia Hypertension Presence of stent in artery (11/2023) right external iliac stent TIA (transient ischemic attack) Tobacco abuse <Navdeep Almaguer MD - Last Filed: 06/16/24 19:03> Surgical History Surgical History: Surgical History History of facial surgery History of hernia surgery <Navdeep Almaguer MD - Last Filed: 06/16/24 19:03> Family History Family History: Family History Father Heart attack Mother Heart attack Sibling Heart attack <Navdeep Almaguer MD - Last Filed: 06/16/24 19:03> Social History Social History: Social History Social History: Patient lives with his niece in a 2 level home with 3 steps to enter. Patient fell on the loose board on his porch. Patient is able to live on the main floor if necessary. Prior to the fall patient was independent without assistive device but has a history of falls. 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 His niece will be able to provide 27/02 assistance. Smoking status: Current every day smoker Tobacco type: cigarettes Alcohol intake: current Drinks per week: 35 Alcohol use details: 5 beers per day Substance use type: does not use Gender identity (if verbalized by the patient): Male Sexual Orientation (if Verbalized by the Patient): Straight or Heterosexual Spiritual care concerns: No <Navdeep Almaguer MD - Last Filed: 06/16/24 19:03> Exam Narrative: GENERAL: Well-appearing, well-nourished, and in no acute distress. HEAD: Normocephalic, atraumatic. EYES: PERRLA and EOMI. ENT: Nares clear, no rhinorrhea or epistaxis. Mucous membranes moist. NECK: Supple. CHEST: Clear to auscultation. No respiratory distress. HEART: Regular rate and rhythm. No murmur heard. Normal peripheral pulses. ABDOMEN: Soft, nontender, nondistended, normal active bowel sounds. EXTREMITIES: Normal range of motion Left lower extremity is in a protective boot with a dressing that is dried and crusted to the foot this was removed that showed a black eschar to the dorsum of the left foot with malodorous drainage. No edema. SKIN: Warm, dry, no rash. NEURO: No focal deficits. Alert and oriented x3. PSYCH: Normal mood and affect. <Navdeep Almaguer MD - Last Filed: 06/16/24 19:03> Course Course Emergency Course: (Cesar): Patient signed out to me pending interpretation of CT runoff study. Doctor Rosina had already talked to Dr Alfaro about the admission. Patient is noted to have a slight lactic acidosis, a leukocytosis, and elevated CRP and ESR. Patient has been started on antibiotics in the form of vancomycin and cefepime. Discussed patient with on-call general surgeon Dr Mendez who recommends contacting orthopedic surgery given there is concern for osteomyelitis. We did discuss if orthopedic surgeon refuses consult than the consult would be placed to him, verifies understanding. Discussed patient with on-call orthopedic surgeon Dr Nieves who states that this is a General surgery patient as he does not perform amputations. He did recommend that we could try contacting the calculator operator, Dr Arndt. Attempted to page/notify this physician but he did inform the program support clerk that he does not take call for the ED. COnsult therefore placed to Dr Mendez. Discussed patient with Dr Alfaro again to confirm the results of the imaging and that a consult has been placed to a surgeon. She verifies understanding. Given there was question of cardiac arrest and that he was coded at the facility (despite DNR status), he will be med surg with telemetry. Stable for the floor. <Mare Guerrero MD - Last Filed: 06/16/24 21:45> Vital Signs Vital signs: Vital Signs Temperature 98.9 F 06/16/24 17:27 Pulse Rate 104 H 06/16/24 17:27 Respiratory Rate 18 06/16/24 17:27 Oxygen Delivery Room Air 06/16/24 17:27 Temperature 98.9 F 06/16/24 17:27 Pulse Rate 85 06/16/24 21:01 Respiratory Rate 20 06/16/24 21:01 Blood Pressure 118/104 H 06/16/24 21:01 Pulse Oximetry 96 06/16/24 19:17 Oxygen Delivery Room Air 06/16/24 19:17 <Navdeep Almaguer MD - Last Filed: 06/16/24 19:03> Vital Signs Temperature 98.9 F 06/16/24 17:27 Pulse Rate 104 H 06/16/24 17:27 Respiratory Rate 18 06/16/24 17:27 Oxygen Delivery Room Air 06/16/24 17:27 Temperature 98.9 F 06/16/24 17:27 Pulse Rate 85 06/16/24 21:01 Respiratory Rate 20 06/16/24 21:01 Blood Pressure 118/104 H 06/16/24 21:01 Pulse Oximetry 96 06/16/24 19:17 Oxygen Delivery Room Air 06/16/24 19:17 <Mare Guerrero MD - Last Filed: 06/16/24 21:45> Medical Decision Making Vital Signs Vital Signs: Vital Signs Temperature 98.9 F 06/16/24 17:27 Pulse Rate 104 H 06/16/24 17:27 Respiratory Rate 18 06/16/24 17:27 Oxygen Delivery Room Air 06/16/24 17:27 Temperature 98.9 F 06/16/24 17:27 Pulse Rate 85 06/16/24 21:01 Respiratory Rate 20 06/16/24 21:01 Blood Pressure 118/104 H 06/16/24 21:01 Pulse Oximetry 96 06/16/24 19:17 Oxygen Delivery Room Air 06/16/24 19:17 <Navdeep Almaguer MD - Last Filed: 06/16/24 19:03> Vital Signs Temperature 98.9 F 06/16/24 17:27 Pulse Rate 104 H 06/16/24 17:27 Respiratory Rate 18 06/16/24 17:27 Oxygen Delivery Room Air 06/16/24 17:27 Temperature 98.9 F 06/16/24 17:27 Pulse Rate 85 06/16/24 21:01 Respiratory Rate 20 06/16/24 21:01 Blood Pressure 118/104 H 06/16/24 21:01 Pulse Oximetry 96 06/16/24 19:17 Oxygen Delivery Room Air 06/16/24 19:17 <Mare Guerrero MD - Last Filed: 06/16/24 21:45> Lab Data Result diagrams: 06/16/24 18:36 06/16/24 18:36 <Navdeep Almaguer MD - Last Filed: 06/16/24 19:03> Labs: Lab Results 06/16/24 06/16/24 06/16/24 Range/Units 18:36 18:36 18:36 WBC 19.4 H (4.5-10.0) K/mm3 RBC 2.83 L (4.6-6.20) M/mm3 Hgb 7.9 L (14.0-18.0) g/dL Hct 24.4 L (42.0-52.0) % MCV 86.2 (80-100) fl MCH 27.9 (26-34) pg MCHC 32.4 (32-36) g/dl RDW 16.9 H (11.5-14.5) % Plt Count 358 D (150-375) k/mm3 MPV 9.3 (7.4-10.4) fl Immature Gran % (Auto) 3.7 H (0-0.5) % Neut % (Auto) 80.5 H (45.5-73.1) % Lymph % (Auto) 5.9 L (18.3-44.2) % [place] % (Auto) 9.3 H (2.6-8.5) % Eos % (Auto) 0.3 (0-4.4) % Baso % (Auto) 0.3 (0.2-1.2) % Lymph # (Auto) 1.14 (0.9-3.2) K/mm3 [place] # (Auto) 1.8 H (0.1-0.6) K/mm3 Eos # (Auto) 0.1 (0-0.3) K/mm3 Baso # (Auto) 0.1 (0.0-0.1) K/mm3 Abs Immat Gran (auto) 0.72 H (0.00-0.031) K/mm3 Absolute Neuts (auto) 15.7 H (1.3-6.7) K/mm3 Absolute Nucleated RBC 0.000 (0.0-0.012) K/mm3 Nucleated RBC % 0.0 (0.0-0.2) % ESR Cancelled > 140 H PT 16.4 H (11.1-14.7) Seconds INR 1.3 APTT 31.7 (22.3-36.8) Seconds Sodium 128 L (137-145) mmol/L Potassium 4.5 (3.4-5.0) mmol/L Chloride 93 L (98-107) mmol/L Carbon Dioxide 24 (22-30) mmol/L Anion Gap 11 (4-12) mmol/L BUN 42 H D (9-20) mg/dL Creatinine 1.90 H (0.7-1.3) mg/dL Estim Creat Clear Calc 36 ml/min Estimated GFR 36 L (59 - ) Glucose 129 H (65-110) mg/dL Lactic Acid (0.7-2.0) mmol/L Calcium 8.6 (8.4-10.2) mg/dL Magnesium 2.4 H (1.6-2.3) mg/dL Total Bilirubin 0.6 (0.2-1.3) mg/dL AST 91 H (17-59) U/L ALT 51 H (6-50) U/L Alkaline Phosphatase 226 H (38-126) U/L Troponin I < 0.012 (0.000-0.034) ng/mL C-Reactive Protein Cancelled 16.8 H Total Protein 8.0 (6.3-8.2) g/dL Albumin 3.6 (3.5-5.1) g/dL Procalcitonin ng/mL Urine Color Urine Appearance Urine pH Ur Specific Calvin Urine Protein Urine Glucose (UA) Urine Ketones Ur Blood (Man) Urine Nitrate Urine Bilirubin Urine Urobilinogen Leukocyte Esterase Rfl 06/16/24 06/16/24 Range/Units 18:37 21:35 WBC (4.5-10.0) K/mm3 RBC (4.6-6.20) M/mm3 Hgb (14.0-18.0) g/dL Hct (42.0-52.0) % MCV (80-100) fl MCH (26-34) pg MCHC (32-36) g/dl RDW (11.5-14.5) % Plt Count (150-375) k/mm3 MPV (7.4-10.4) fl Immature Gran % (Auto) (0-0.5) % Neut % (Auto) (45.5-73.1) % Lymph % (Auto) (18.3-44.2) % [place] % (Auto) (2.6-8.5) % Eos % (Auto) (0-4.4) % Baso % (Auto) (0.2-1.2) % Lymph # (Auto) (0.9-3.2) K/mm3 [place] # (Auto) (0.1-0.6) K/mm3 Eos # (Auto) (0-0.3) K/mm3 Baso # (Auto) (0.0-0.1) K/mm3 Abs Immat Gran (auto) (0.00-0.031) K/mm3 Absolute Neuts (auto) (1.3-6.7) K/mm3 Absolute Nucleated RBC (0.0-0.012) K/mm3 Nucleated RBC % (0.0-0.2) % ESR PT (11.1-14.7) Seconds INR APTT (22.3-36.8) Seconds Sodium (137-145) mmol/L Potassium (3.4-5.0) mmol/L Chloride (98-107) mmol/L Carbon Dioxide (22-30) mmol/L Anion Gap (4-12) mmol/L BUN (9-20) mg/dL Creatinine (0.7-1.3) mg/dL Estim Creat Clear Calc ml/min Estimated GFR (59 - ) Glucose (65-110) mg/dL Lactic Acid 2.2 H (0.7-2.0) mmol/L Calcium (8.4-10.2) mg/dL Magnesium (1.6-2.3) mg/dL Total Bilirubin (0.2-1.3) mg/dL AST (17-59) U/L ALT (6-50) U/L Alkaline Phosphatase (38-126) U/L Troponin I (0.000-0.034) ng/mL C-Reactive Protein Total Protein (6.3-8.2) g/dL Albumin (3.5-5.1) g/dL Procalcitonin 0.4 ng/mL Urine Color Pending Urine Appearance Pending Urine pH Pending Ur Specific Calvin Pending Urine Protein Pending Urine Glucose (UA) Pending Urine Ketones Pending Ur Blood (Man) Pending Urine Nitrate Pending Urine Bilirubin Pending Urine Urobilinogen Pending Leukocyte Esterase Rfl Pending <Navdeep Almaguer MD - Last Filed: 06/16/24 19:03> Lab Results 06/16/24 06/16/24 06/16/24 Range/Units 18:36 18:36 18:36 WBC 19.4 H (4.5-10.0) K/mm3 RBC 2.83 L (4.6-6.20) M/mm3 Hgb 7.9 L (14.0-18.0) g/dL Hct 24.4 L (42.0-52.0) % MCV 86.2 (80-100) fl MCH 27.9 (26-34) pg MCHC 32.4 (32-36) g/dl RDW 16.9 H (11.5-14.5) % Plt Count 358 D (150-375) k/mm3 MPV 9.3 (7.4-10.4) fl Immature Gran % (Auto) 3.7 H (0-0.5) % Neut % (Auto) 80.5 H (45.5-73.1) % Lymph % (Auto) 5.9 L (18.3-44.2) % [place] % (Auto) 9.3 H (2.6-8.5) % Eos % (Auto) 0.3 (0-4.4) % Baso % (Auto) 0.3 (0.2-1.2) % Lymph # (Auto) 1.14 (0.9-3.2) K/mm3 [place] # (Auto) 1.8 H (0.1-0.6) K/mm3 Eos # (Auto) 0.1 (0-0.3) K/mm3 Baso # (Auto) 0.1 (0.0-0.1) K/mm3 Abs Immat Gran (auto) 0.72 H (0.00-0.031) K/mm3 Absolute Neuts (auto) 15.7 H (1.3-6.7) K/mm3 Absolute Nucleated RBC 0.000 (0.0-0.012) K/mm3 Nucleated RBC % 0.0 (0.0-0.2) % ESR Cancelled > 140 H PT 16.4 H (11.1-14.7) Seconds INR 1.3 APTT 31.7 (22.3-36.8) Seconds Sodium 128 L (137-145) mmol/L Potassium 4.5 (3.4-5.0) mmol/L Chloride 93 L (98-107) mmol/L Carbon Dioxide 24 (22-30) mmol/L Anion Gap 11 (4-12) mmol/L BUN 42 H D (9-20) mg/dL Creatinine 1.90 H (0.7-1.3) mg/dL Estim Creat Clear Calc 36 ml/min Estimated GFR 36 L (59 - ) Glucose 129 H (65-110) mg/dL Lactic Acid (0.7-2.0) mmol/L Calcium 8.6 (8.4-10.2) mg/dL Magnesium 2.4 H (1.6-2.3) mg/dL Total Bilirubin 0.6 (0.2-1.3) mg/dL AST 91 H (17-59) U/L ALT 51 H (6-50) U/L Alkaline Phosphatase 226 H (38-126) U/L Troponin I < 0.012 (0.000-0.034) ng/mL C-Reactive Protein Cancelled 16.8 H Total Protein 8.0 (6.3-8.2) g/dL Albumin 3.6 (3.5-5.1) g/dL Procalcitonin ng/mL Urine Color Urine Appearance Urine pH Ur Specific [place] Urine Protein Urine Glucose (UA) Urine Ketones Ur Blood (Man) Urine Nitrate Urine Bilirubin Urine Urobilinogen Leukocyte Esterase Rfl 06/16/24 06/16/24 Range/Units 18:37 21:35 WBC (4.5-10.0) K/mm3 RBC (4.6-6.20) M/mm3 Hgb (14.0-18.0) g/dL Hct (42.0-52.0) % MCV (80-100) fl MCH (26-34) pg MCHC (32-36) g/dl RDW (11.5-14.5) % Plt Count (150-375) k/mm3 MPV (7.4-10.4) fl Immature Gran % (Auto) (0-0.5) % Neut % (Auto) (45.5-73.1) % Lymph % (Auto) (18.3-44.2) % [place] % (Auto) (2.6-8.5) % Eos % (Auto) (0-4.4) % Baso % (Auto) (0.2-1.2) % Lymph # (Auto) (0.9-3.2) K/mm3 [place] # (Auto) (0.1-0.6) K/mm3 Eos # (Auto) (0-0.3) K/mm3 Baso # (Auto) (0.0-0.1) K/mm3 Abs Immat Gran (auto) (0.00-0.031) K/mm3 Absolute Neuts (auto) (1.3-6.7) K/mm3 Absolute Nucleated RBC (0.0-0.012) K/mm3 Nucleated RBC % (0.0-0.2) % ESR PT (11.1-14.7) Seconds INR APTT (22.3-36.8) Seconds Sodium (137-145) mmol/L Potassium (3.4-5.0) mmol/L Chloride (98-107) mmol/L Carbon Dioxide (22-30) mmol/L Anion Gap (4-12) mmol/L BUN (9-20) mg/dL Creatinine (0.7-1.3) mg/dL Estim Creat Clear Calc ml/min Estimated GFR (59 - ) Glucose (65-110) mg/dL Lactic Acid 2.2 H (0.7-2.0) mmol/L Calcium (8.4-10.2) mg/dL Magnesium (1.6-2.3) mg/dL Total Bilirubin (0.2-1.3) mg/dL AST (17-59) U/L ALT (6-50) U/L Alkaline Phosphatase (38-126) U/L Troponin I (0.000-0.034) ng/mL C-Reactive Protein Total Protein (6.3-8.2) g/dL Albumin (3.5-5.1) g/dL Procalcitonin 0.4 ng/mL Urine Color Pending Urine Appearance Pending Urine pH Pending Ur Specific Calvin Pending Urine Protein Pending Urine Glucose (UA) Pending Urine Ketones Pending Ur Blood (Man) Pending Urine Nitrate Pending Urine Bilirubin Pending Urine Urobilinogen Pending Leukocyte Esterase Rfl Pending <Mare Guerrero MD - Last Filed: 06/16/24 21:45> Discharge Plan Discharge Clinical Impression: Foot osteomyelitis, left <Navdeep Almaguer MD - Last Filed: 06/16/24 19:03> Patient Disposition: Still a Patient <Navdeep Almaguer MD - Last Filed: 06/16/24 19:03> Condition: Stable <Navdeep Almaguer MD - Last Filed: 06/16/24 19:03> Prescriptions: No Action amlodipine 2.5 mg tablet 2.5 mg PO DAILY Santyl 250 unit/gram ointment 1 applic topical DAILY Qty: 90 1RF polyethylene glycol 3350 17 gram Powder In Packet 17 g PO DAILY PRN (Reason: Constipation) acetaminophen [Mapap (acetaminophen)] 325 mg Tablet 325 mg PO Q6H PRN (Reason: Mild Pain (1-3) Or Fever) Qty: 100 0RF Thera M Plus (ferrous fumarat) 9 mg iron-400 mcg Tablet 1 tablet PO QAM Qty: 30 0RF lidocaine [Lidoderm] 5 % Adhesive Patch,Medicated 2 patch TOPICAL DAILY Qty: 60 0RF cyclobenzaprine 5 mg tablet 5 mg PO TID PRN (Reason: muscle spasm) Qty: 30 2RF apixaban 5 mg tablet 5 mg PO BID Qty: 60 5RF metoprolol succinate 200 mg tablet extended release 24 hr See Rx Instructions .ROUTE .COMPLEX Qty: 90 1RF Dose Instruction: Take 1 tablet by mouth once daily Rx Instructions: Take 1 tablet by mouth once daily aspirin [Adult Aspirin Regimen] 81 mg tablet,delayed release (DR/EC) 81 mg PO DAILY Qty: 100 3RF trazodone 100 mg tablet 100 mg PO QHS Qty: 90 1RF lisinopril 40 mg tablet See Rx Instructions .ROUTE .COMPLEX Qty: 90 2RF Dose Instruction: Take 1 tablet by mouth once daily Rx Instructions: Take 1 tablet by mouth once daily tramadol 100 mg tablet 100 mg PO QID PRN (Reason: pain) Qty: 60 4RF Rx Instructions: Do not take more than 4 tablets in any day atorvastatin 40 mg tablet 40 mg PO QHS Qty: 30 7RF clopidogrel 75 mg tablet 75 mg PO DAILY Qty: 30 7RF methocarbamol 500 mg tablet 500 mg PO QID PRN (Reason: muscle spasm) Qty: 60 3RF gabapentin 800 mg tablet 800 mg PO QID Qty: 120 5RF <Navdeep Almaguer MD - Last Filed: 06/16/24 19:03> Follow-up/Referrals: Kyle Ndiaye MD [Primary Care Provider] - <Navdeep Almaguer MD - Last Filed: 06/16/24 19:03>
[2024-06-16 19:00] LABS: Partial Thromboplastin Time 31.7 Seconds (22.3-36.8)
[2024-06-16 19:02] LABS: Alanine Aminotransferase 51 U/L (6-50); Albumin Level 3.6 g/dL (3.5-5.1); Alkaline Phosphatase 226 U/L (38-126); Anion Gap 11 mmol/L (4-12); Aspartate Amino Transferase 91 U/L (17-59); Bilirubin,Total 0.6 mg/dL (0.2-1.3); Blood Urea Nitrogen 42 mg/dL (9-20); Calcium 8.6 mg/dL (8.4-10.2); Carbon Dioxide 24 mmol/L (22-30); Chloride 93 mmol/L (98-107); Estimated CRCL calculation 36 ml/min; Estimated Glomerular Filt Rate 36; Glucose 129 mg/dL (65-110); Magnesium 2.4 mg/dL (1.6-2.3); Potassium 4.5 mmol/L (3.4-5.0); Sodium 128 mmol/L (137-145)
[2024-06-16 19:10] LABS: Troponin I < 0.012 ng/mL (0.000-0.034)
[2024-06-16 19:12] LABS: CRP 16.8 mg/dL (<1.0)
[2024-06-16 19:17] LABS: Erythrocyte Sedimentation Rate > 140 mm/hr (0-20)
--- NOTE | 2024-06-16 19:29 | PC.NURSE ---
Report received from TESSY Barbosa. Assumed care of patient at this time.
[2024-06-16 19:37] LABS: Procalcitonin 0.4 ng/mL
[2024-06-16] MEDS: CEFEPIME 2 GM/NS 50 ML 2 GM/50 ML BAG IVPB (20:10)
[2024-06-16] MEDS: VANCOMYCIN 1,750 MG/NS 500 ML 1,750 MG/500 ML BAG 250 MG IVPB (20:51)
--- NOTE | 2024-06-16 21:14 | PC.NURSE ---
Patient aware of need for urine sample, patient attempted to use urinal. Patient was unable to provide sample. Patient offered straight cath, patient states hell no you're not doing that to me, I'll keep trying to go.
[2024-06-16 21:44] LABS: Reflex Lactic Acid Yes or No Add Lactic
[2024-06-16 21:46] LABS: Add Urine Microscopic? YES; Appearance Urine Clear (Clear); Bacteria Urine None Seen /hpf; Bilirubin Urine Negative (Negative); Blood Urine Negative (Negative); Color Urine Yellow (Yellow); Glucose Urine UA Negative (Negative); Ketones Urine Negative (Negative); Leukocyte Esterase Ur Negative LEU/UL (Negative); Nitrate Urine Negative (Negative); Non Pathogenic Casts 0-2; Protein Urine 1+ mg/dL (Negative); RBC Urine 0-2 /hpf (0-2); Specific Grav Ur 1.031 (1.001-1.035); Squamous Epithelial Cell Urine None Seen /hpf (Few); WBC Urine 0-5 /hpf (0-3)
--- NOTE | 2024-06-16 22:04 | PM.IMHP ---
H&P: HPI History of Present Illness Date/Time: 06/16/24 22:04 Chief Complaint: Altered mental status Narrative: This is a 59-year-old male with past medical history significant for alcohol dependence, hypertension, patient is a [facility] resident who was unresponsive patient received CPR and became awake was brought to the emergency room for evaluation. here patient was found to have necrotic ulcer of the dorsum of left foot. Patient has no knowledge of when this ulcer started does not know why he is in the emergency room however he knows that he is at [facility] , knows that Thanksgiving is daily next holiday. Patient was ruled out for acute pulmonary embolism with a negative CT angiogram of the chest. EXAMINATION: CTA abd aorta runoff DATE: 06/16/2024 19:52 INDICATION: left foot necrotic wound, post code TECHNIQUE: Computed tomography (CT) of the abdomen and pelvis was performed with 100 mL Omnipaque-350 intravenous contrast. Automated exposure control and iterative reconstruction technique were employed. The dose-length product was 1842.63 mGy-cm. COMPARISON: None. FINDINGS: Lower thorax: Unremarkable Liver: Nodular liver border. Biliary/Gallbladder: Cholelithiasis. No bile duct dilation. Pancreas: No mass or duct dilation. Spleen: Normal. Adrenals:No mass. Kidneys: No suspicious mass, obstructing stone, or hydronephrosis. GI tract: Mild distal esophageal and gastric wall edema No small or large bowel dilation. Appendix not confidently visualized. Diverticulosis without diverticulitis. Mesentery/Peritoneum: No ascites, mass, or free air. Retroperitoneum: No mass. Extensive atherosclerotic calcifications. No aneurysm or dissection. No severe major aortic branch vessel origin occlusion. Occluded left internal iliac artery, with distal reconstitution. Pelvis: Distended bladder with moderate wall thickening. Mild prostatomegaly. Soft Tissues: Soft tissues and body wall unremarkable. Bones: No acute osseous finding. Uncomplicated appearing screw and plate fixation of the proximal right tibia. Intramedullary fausto fixation of the right femur. Focal osteopenia in the inferior aspect of the left fifth metatarsal. Moderate wedge deformity at L1. Mild wedge deformity at L3. Right lower extremity: Patent right superficial femoral artery stent. Multifocal calcified plaques in the distal superior femoral and popliteal arteries causing severe stenoses. Posterior tibial artery occlusion. There is slow flow below the level of ankle via the anterior tibial and peroneal arteries. Severe subcutaneous fat stranding in the right foot. Left lower extremity: Extensive stenting on the left from the common femoral artery to the trifurcation. There is no vessel flow below the level of the ankle. There is extensive subcutaneous swelling and edema over the left foot. Soft tissue defect over the medial and dorsum of the left foot. IMPRESSION: Mild esophagitis/gastritis. Possible cirrhosis. Cystitis versus chronic bladder wall thickening from outlet obstruction. 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 Vertebral body endplate deformities resulting in moderate and mild degrees of height loss at L1 and L3 respectively, may be chronic or acute, correlate for pain/tenderness or history of recent trauma. Extensive atherosclerotic disease is seen generally, with extensive stenting of the bilateral lower extremity arteries. There is multivessel flow below the level of the ankle in both lower extremities. Findings concerning for osteomyelitis involving the inferior aspect of the distal fifth metatarsal. Extensive left foot soft tissue ulcerations with overlying edema or cellulitis. Diffuse edema/cellulitis of the right foot. EXAMINATION: CT brain wo con DATE: 06/16/2024 19:47 INDICATION: mental status changes . TECHNIQUE: Computed tomography (CT) of the head was performed without intravenous contrast. The mA was adjusted according to patient size. Iterative reconstruction technique was employed. The dose-length product was 605.33 mGy-cm. COMPARISON: 05/29/2019; MR brain 05/30/2019. FINDINGS: No acute intracranial hemorrhage or extra-axial fluid collection. No hydrocephalus, mass, or herniation. No acute ischemic infarct. Unremarkable dural venous sinus attenuation. No acute osseous abnormality. The aerated spaces are clear. Old left posterior limb internal capsule and focal periventricular infarcts. IMPRESSION: No acute intracranial process. EXAMINATION: CTA chest DATE: 06/16/2024 19:52 INDICATION: post code TECHNIQUE: Computed tomography angiography of the chest was performed with 150 mL Omnipaque-350 intravenous contrast in the arterial phase with. Automated exposure control and iterative reconstruction technique were employed. The dose-length product was 1842.63 mGy-cm. COMPARISON: None. FINDINGS: CHEST: Thoracic aorta: No significant dilation or calcification. Mild arch calcification. Lung parenchyma and airways: Mild dependent atelectasis, otherwise clear. Patent airways. Thoracic inlet, axillae and chest wall: Subcentimeter left thyroid lobe nodule, requiring no additional evaluation at this time. No soft tissue mass. No axillary lymphadenopathy. Mediastinum: No mass or lymphadenopathy. Heart and pericardium: Normal heart size. No pericardial effusion. Coronary artery calcifications: Mild. Pleura: No effusion or mass. Upper abdomen: No significant finding. Thoracic bones: No acute osseous finding in the chest. Old bilateral healed rib fractures. IMPRESSION: No acute thoracic process detected. Review of Systems Review of Systems: ROS unobtainable: Yes other ( patient does not know why his in the emergency room) [facility] Past Medical History Medical History Alcoholism Fracture of shaft of right femur with routine healing (09/2022) ORIF History of fracture of right hip History of stroke Hyperlipidemia Hypertension Presence of stent in artery (11/2023) right external iliac stent TIA (transient ischemic attack) Tobacco abuse Surgical History Surgical History History of facial surgery History of hernia surgery Family History Family History Father Heart attack Mother Heart attack Sibling Heart attack Social History Social History Social History: Patient lives with his niece in a 2 level home with 3 steps to enter. Patient fell on the loose board on his porch. Patient is able to live on the main floor if necessary. Prior to the fall patient was independent without assistive device but has a history of falls. 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 His niece will be able to provide 27/02 assistance. Smoking packs per day: 1 Smoking cigarettes per day: 20.0 Years smoked: 20 Smoking pack-years: 20.00 Smoking status: Current every day smoker Alcohol intake: former Alcohol use details: 5 beers per day Substance use type: does not use Other substance usage details: pt states he has not had alcohol in about 30 days Do You Feel Safe in your Home?: Yes Lack of Transportation: No Lack of Food: Never True Current Housing: I Have Housing Concerned About Future Housing: No Difficulty Paying Gas/Electric Bills: No Difficulty Paying for Meds: No Currently Unemployed: No Education: High School Diploma/GED Difficulty w/ Childcare or Family Care: No Gender identity (if verbalized by the patient): Male Sexual Orientation (if Verbalized by the Patient): Straight or Heterosexual Spiritual care concerns: No Meds Home Medications and Allergies Home Medications Medication Instructions Recorded Confirmed Type multivitamin-iron 9 mg-folic acid 1 tablet PO QAM #30 tabs 01/05/21 06/16/24 Rx 400 mcg-calcium and minerals tablet (Thera M Plus (ferrous fumarate)) aspirin 81 mg tablet,delayed 81 mg PO DAILY #100 tabs 12/13/23 06/16/24 Rx release (Adult Aspirin Regimen) trazodone 100 mg tablet 100 mg PO QHS #90 tabs 01/03/24 06/16/24 Rx amlodipine 2.5 mg tablet 2.5 mg PO DAILY 01/30/24 06/16/24 History tramadol 100 mg tablet 100 mg PO QID PRN pain #60 tabs 03/19/24 06/16/24 Rx atorvastatin 40 mg tablet 40 mg PO QHS #30 tabs 03/31/24 06/16/24 Rx clopidogrel 75 mg tablet 75 mg PO DAILY #30 tabs 03/31/24 06/16/24 Rx acetaminophen 325 mg tablet 1,000 mg PO Q6H PRN Mild Pain 06/16/24 06/16/24 History (1-3) Or Fever folic acid 400 mcg tablet 0.4 mg PO DAILY 06/16/24 06/16/24 History gabapentin 800 mg tablet 300 mg PO TID 06/16/24 06/16/24 History lidocaine 4 % topical cream 1 applic topical DAILY 06/16/24 06/16/24 History lisinopril 40 mg tablet 40 mg PO DAILY 06/16/24 06/16/24 History melatonin 3 mg tablet 3 mg PO HS 06/16/24 06/16/24 History methocarbamol 500 mg tablet 500 mg PO QID muscle spasm 06/16/24 06/16/24 History metoprolol succinate 200 mg 200 mg PO HS 06/16/24 06/16/24 History tablet,extended release 24 hr naloxone 4 mg/actuation nasal spray 4 mg intranasal Q3M PRN Opioid 06/16/24 06/16/24 History Reversal oxycodone 5 mg tablet 5 mg PO Q8H PRN Pain 06/16/24 06/16/24 History Allergies Allergy/AdvReac Type Severity Reaction Status Date / Time peanut Allergy Swelling Verified 06/16/24 22:03 mite extract Allergy Nasal Uncoded 06/16/24 22:03 Discharge Vital Signs Vital Signs - 24 hr 06/16/24 17:27 06/16/24 17:41 06/16/24 19:17 Temperature 98.9 F Pulse Rate 104 H 101 H Respiratory Rate 18 18 Blood Pressure 119/80 Pulse Oximetry 96 96 Oxygen Delivery Room Air Room Air 06/16/24 19:01 06/16/24 19:02 06/16/24 19:47 Temperature Pulse Rate 89 86 90 Respiratory Rate 20 23 H 20 Blood Pressure 107/52 L Pulse Oximetry Oxygen Delivery 06/16/24 20:16 06/16/24 20:39 06/16/24 21:00 Temperature Pulse Rate 86 86 85 Respiratory Rate 22 H 22 H 23 H Blood Pressure Pulse Oximetry Oxygen Delivery 06/16/24 21:01 06/16/24 21:02 06/16/24 21:15 Temperature Pulse Rate 85 85 84 Respiratory Rate 20 22 H 22 H Blood Pressure 118/104 H Pulse Oximetry Oxygen Delivery 06/16/24 21:31 06/16/24 21:33 06/16/24 21:45 Temperature Pulse Rate 83 83 90 Respiratory Rate 19 21 H 20 Blood Pressure 96/60 L Pulse Oximetry Oxygen Delivery 06/16/24 21:46 Temperature Pulse Rate 84 Respiratory Rate 21 H Blood Pressure 98/49 L Pulse Oximetry Oxygen Delivery Exam Narrative: laying in a stretcher Const: General: comfortable, no acute distress, well developed, alert, awake, ill appearing chronically and average body habitus Nutritional Appearance: average body habitus Orientation/consciousness: patient oriented x3 Other: looks older than stated age HENMT: Head: normal to inspection, normocephalic and atraumatic Ears: hearing grossly normal bilaterally Face/Nose/Sinus: normal facial exam Face and sinus: normal facial exam Eyes: General: appearance normal, both eyes and all related structures Pupils: Equal, round and reactive pupils present EOM: EOMs intact bilaterally Neck: Neck: full ROM, no lymphadenopathy and no JVD Thyroid: thyroid normal Lymphatic: no lymphadenopathy noted Resp: Effort & Inspection: normal respiratory effort and able to speak in complete sentences Auscultation: clear to auscultation bilaterally Cardio: Jugular venous distension: no JVD Rate: regular rate Rhythm: regular rhythm Heart sounds: S1 normal heart sound present and S2 normal heart sound present GI: GI Palp: Yes Soft to palpation and Yes No hepatosplenomegaly present : General: Yes deferred Skin: Rashes: no rashes Wounds: wounds noted left foot margins with edges rolled under and indurated, without odor and open Neuro: General: patient oriented x3 and CN's II-XI intact bilaterally Cranial nerves: Yes CN's II-XII intact bilaterally and Yes Equal, round and reactive pupils present Cognition (Neuro): normal cognition Speech: normal speech Gait exam (Neuro): Unable to assess gait Motor exam (neuro): 5/5 motor strength present throughout Extrem: General: normal to inspection, full ROM, no joint enlargement and no pedal edema Ankle/foot/toe images: 1. necrotic ulcer H&P: Results Labs Labs: Short CBC 06/16/24 Range/Units 18:36 WBC 19.4 H (4.5-10.0) K/mm3 Hgb 7.9 L (14.0-18.0) g/dL Hct 24.4 L (42.0-52.0) % Plt Count 358 D (150-375) k/mm3 BMP 06/16/24 18:36 Sodium 128 L Potassium 4.5 Chloride 93 L Carbon Dioxide 24 BUN 42 H D Creatinine 1.90 H Glucose 129 H Calcium 8.6 Cardiac Enzymes 06/16/24 Range/Units 18:36 Troponin I < 0.012 (0.000-0.034) ng/mL Liver Function 06/16/24 Range/Units 18:36 Total Bilirubin 0.6 (0.2-1.3) mg/dL AST 91 H (17-59) U/L ALT 51 H (6-50) U/L Alkaline Phosphatase 226 H (38-126) U/L Albumin 3.6 (3.5-5.1) g/dL Urine 06/16/24 Range/Units 21:35 Urine Color Yellow (Yellow) Urine Appearance Clear (Clear) Urine pH 6.0 (5.0-9.0) Ur Specific [place] 1.031 (1.001-1.035) Urine Protein 1+ H (Negative) mg/dL Urine Glucose (UA) Negative (Negative) mg/dL Assessment and Plan Assessment and plan (1) Foot osteomyelitis, left: Code(s): M86.9 - Osteomyelitis, unspecified Status: Acute (2) PAD (peripheral artery disease): Code(s): I73.9 - Peripheral vascular disease, unspecified Status: Acute (3) Peripheral neuropathy: Qualifiers: Peripheral neuropathy type: polyneuropathy associated with underlying disease Qualified Code(s): G63 - Polyneuropathy in diseases classified elsewhere Code(s): G62.9 - Polyneuropathy, unspecified Status: Acute (4) Alcoholism: Code(s): F10.20 - Alcohol dependence, uncomplicated Status: Acute (5) Infarction of right basal ganglia: Code(s): I63.9 - Cerebral infarction, unspecified Status: Acute (6) Infarction of left basal ganglia: Code(s): I63.9 - Cerebral infarction, unspecified Status: Acute (7) Tobacco abuse: Code(s): Z72.0 - Tobacco use Status: Acute (8) Hypertension: Code(s): I10 - Essential (primary) hypertension Status: Acute (9) Ulcer of left foot: Code(s): L97.529 - Non-pressure chronic ulcer of other part of left foot with unspecified severity Status: Acute Hospitalist MIPS Advance Care Plan I have confirmed that the patient's Advanced Care Plan is present, code status is documented, or surrogate decision maker is listed in patient medical record.: Yes Medication Reconciliation I have utilized all available resources to obtain, update and review the patients current medications (includes all prescriptions, OTC, herbals, cannabis, and nutritional supplements).: Yes
--- NOTE | 2024-06-16 22:10 | PC.NURSE ---
Addendum entered by Geeta Martinez RN 06/16/24 22:18: RN notified that patient lives at a [facility]; home med list edited per list sent from facility. Copy of med list in patient chart. Original Note: Patient presents as alert and oriented, but changed his answers to admission questions during admission assessment r/t history of diabetes; initially patient stated he has been told he diabetic, but later denies history. Patient confirmed medications as recalled via external medication list. Patient states he is a DNR and verbalizes POA, but is unable to provide contact information. Report provided to TESSY Uriarte.
[2024-06-16 23:19] LABS: Lactic Acid 1.9 mmol/L (0.7-2.0)
--- NOTE | 2024-06-16 23:37 | ADMGEN ---
This patient, Gilbert Virgen, was admitted to Medical Room 346-01. Patient/family oriented to hospital policies and general routines including ID bracelet, bed and alarms, visiting hours, pain management, procedures, bathroom and other care routines, personal items, smoking policy, room service/diet, and visiting hours. Information on how to activate the Rapid Response Team has been discussed. Patient/Family are encouraged to report perceived risks to care and to ask questions if they do not understand what they are told or what they should do.
[2024-06-17] VITALS (10 sets, daily range): BP systolic 120–128; BP diastolic 64–79; PULSE 86–102; RESP 18–20; TEMP 36.7–37.3; O2SAT 94–100; BMI 25.9
[2024-06-17 06:14] LABS: Estimated CRCL calculation 76 ml/min; Estimated Glomerular Filt Rate > 60
--- NOTE | 2024-06-17 09:44 | PM.CNGS ---
Assessment and Plan Assessment and plan (1) Ulcer of left foot: Code(s): L97.529 - Non-pressure chronic ulcer of other part of left foot with unspecified severity Status: Acute Assessment and Plan: Patient presents with a chronic large foot ulcer on the dorsal aspect of the left foot with an eschar cap and purulent drainage. He is a poor historian, but in review of his EMR, he has been treated multiple times in the past few months at [facility] for his multiple medical problems. He has been evaluated by Podiatry and vascular surgery at [facility] with recent vascular intervention. He is currently on dual anti-platelet therapy with Plavix/ASA, which has been held. Imaging suggests possible osteomyelitis of the left distal 5th metatarsal. It appears he was treated for osteomyelitis of the left foot at [facility] on previous admissions as well. He has extensive peripheral vascular disease and multiple other medical problems, as well as his antiplatelet therapy that increases his risks for surgery. His left foot ulcer is extensive and appears unlikely to heal with debridement and continued wound care. I discussed the case with Dr. Mendez, who would be able to offer a [id number] at this facility, but the patient is adamant about not wanting an amputation. The other option would be to transfer him to [facility] where he has been receiving his care and could be re-evaluated by vascular surgery. Will discuss this with the Hospitalist. Continue IV antibiotics for now and start local wound care with dry gauze dressing changes. (2) Foot osteomyelitis, left: Code(s): M86.9 - Osteomyelitis, unspecified Status: Acute Assessment and Plan: Imaging showed findings of possible osteomyelitis involving the inferior aspect of the distal fifth metatarsal. He has had multiple previous hospitalizations at [facility] over the past few months and had evidence of osteomyelitis in the left foot at some point. This could be chronic versus acute. Continue IV antibiotics for now. Patient is refusing an amputation at this time. (3) PAD (peripheral artery disease): Code(s): I73.9 - Peripheral vascular disease, unspecified Status: Acute Assessment and Plan: Extensive peripheral vascular disease with multiple vascular intervention in the past. He has multiple lower extremity arterial stents as well as stenting of the right external iliac artery by vascular surgery at [facility]. He had vascular surgery in November of 2023 and possibly during his last hospitalization in May of 2024. He likely needs to be re-evaluated by vascular surgery. (4) Venous stasis: Code(s): I87.8 - Other specified disorders of veins Status: Acute Assessment and Plan: Elevate lower extremities. (5) Alcoholism: Code(s): F10.20 - Alcohol dependence, uncomplicated Status: Acute Assessment and Plan: History of alcohol abuse, but currently resides in a nursing facility for rehab. CT scan also shows possible liver cirrhosis. (6) Tobacco abuse: Code(s): Z72.0 - Tobacco use Status: Acute Assessment and Plan: Still an everyday smoker, although his tobacco use has decreased since being admitted to rehab. Encouraged cessation. (7) Carotid artery disease: Code(s): I77.9 - Disorder of arteries and arterioles, unspecified Status: Acute Assessment and Plan: Extensive carotid artery disease bilaterally approaching 100% stenosis on imaging at [facility]. He was evaluated by vascular surgery who deferred surgical management at that time with recommendations of medical management with DAPT. (8) Antiplatelet or antithrombotic long-term use: Code(s): Z79.02 - detention (current) use of antithrombotics/antiplatelets Status: Acute Assessment and Plan: Currently on Plavix/ASA. Plan I have discussed the patient's case and plan of care with Dr. Mendez. History of Present Illness Consult details Consult date: 06/17/24 Reason for consult: other (Osteomyelitis) Requesting physician: Mare Guerrero MD Narrative: This is a 59-year-old man with a history of alcohol abuse, hypertension, peripheral vascular disease, and tobacco abuse, who we have been asked to see in surgical consultation for osteomyelitis. Although the patient can answer orientation questions appropriately, he is confused regarding history and is a very poor historian. He resides in a care home and was brought into the ED yesterday for evaluation of altered mental status. He apparently had an episode at the facility where they felt he was pulseless and apneic and started CPR. The patient apparently came to and was confused. In the ED, he was afebrile with tachycardia and mild hypotension. Labs showed a white blood cell count [id number], hemoglobin 7.9, hematocrit 24.4, INR 1.3, sodium 128, BUN 42, creatinine 1.9, glucose 129, lactic acid 2.2 with repeat lactic down to 1.9, CRP 16.8. Blood cultures were drawn. He was found to have a wound on his left dorsal foot, as well as multiple other small wounds on his bilateral lower extremities. CT head negative. X-rays of the tibia/fibula and left foot showed findings concerning for osteomyelitis involving the inferior aspect of the distal left fifth metatarsal with extensive cutaneous defect/ulcerations and likely cellulitis. CTA of the chest was negative. CTA aorta with runoff showed mild esophagitis/gastritis, possible cirrhosis, cystitis versus chronic bladder wall thickening from outlet obstruction, left internal iliac artery occlusion with distal reconstitution, vertebral body endplate deformities resulting in height loss at L1 and L3, extensive atherosclerotic disease seen generally with extensive stenting of the bilateral lower extremity arteries, findings concerning for osteomyelitis involving the inferior aspect of the distal fifth metatarsal with extensive left foot soft tissue ulcerations and edema/cellulitis, as well as diffuse edema/cellulitis of the right foot. There is multivessel flow below the level of the ankle in both lower extremities. He was started on a broad-spectrum IV antibiotics and admitted to the hospitalist service. Wound Care has been consulted. He is now seen on the medical floor. He does take Plavix. I asked nursing to call the care home to verify his last dose of Plavix, which was yesterday (06/16/24) morning. He cannot give me any specific details on the wound. He does report that he believes he has had the wound for about a year. When asking him questions, at 1 point he tells me has not been ambulatory for the past few weeks and at another point he tells me hasn't walked for almost a year. His history is unreliable. Review of Systems Review of Systems: ROS unobtainable: Yes unobtainable due to mental status [facility] Past Medical History Medical History Alcoholism Carotid artery disease April 2024 - [facility] workup showed severe bilateral carotid stenosis approaching 100%, vascular surgery recommending DAPT/medical management d/t poor surgical candidate for carotid disease Fracture of shaft of right femur with routine healing (09/2022) ORIF History of fracture of right hip History of stroke Hyperlipidemia Hypertension Presence of stent in artery (11/2023) right external iliac stent Right leg DVT TIA (transient ischemic attack) Tobacco abuse Surgical History Surgical History History of facial surgery History of hernia surgery History of vascular surgery extensive bilateral lower extremity stenting and stent of left external iliac, SFA, POP, TP trunk at [facility] Family History Family History Father Heart attack Mother Heart attack Sibling Heart attack Social History Social History Social History: Patient currently resides at a group home facility for rehab. He previously lived independently at home. 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 Smoking packs per day: 1 Smoking cigarettes per day: 20.0 Years smoked: 20 Smoking pack-years: 20.00 Smoking status: Current every day smoker Alcohol intake: former Alcohol use details: 5 beers per day Substance use type: does not use Other substance usage details: pt states he has not had alcohol in about 30 days Do You Feel Safe in your Home?: Yes Lack of Transportation: No Lack of Food: Never True Current Housing: I Have Housing Concerned About Future Housing: No Difficulty Paying Gas/Electric Bills: No Difficulty Paying for Meds: No Currently Unemployed: No Education: High School Diploma/GED Difficulty w/ Childcare or Family Care: No Gender identity (if verbalized by the patient): Male Sexual Orientation (if Verbalized by the Patient): Straight or Heterosexual Spiritual care concerns: No Meds Home Medications and Allergies Home Medications Medication Instructions Recorded Confirmed Type multivitamin-iron 9 mg-folic acid 1 tablet PO QAM #30 tabs 01/05/21 06/16/24 Rx 400 mcg-calcium and minerals tablet (Thera M Plus (ferrous fumarate)) aspirin 81 mg tablet,delayed 81 mg PO DAILY #100 tabs 12/13/23 06/16/24 Rx release (Adult Aspirin Regimen) trazodone 100 mg tablet 100 mg PO QHS #90 tabs 01/03/24 06/16/24 Rx amlodipine 2.5 mg tablet 2.5 mg PO DAILY 01/30/24 06/16/24 History tramadol 100 mg tablet 100 mg PO QID PRN pain #60 tabs 03/19/24 06/16/24 Rx atorvastatin 40 mg tablet 40 mg PO QHS #30 tabs 03/31/24 06/16/24 Rx clopidogrel 75 mg tablet 75 mg PO DAILY #30 tabs 03/31/24 06/16/24 Rx acetaminophen 325 mg tablet 1,000 mg PO Q6H PRN Mild Pain 06/16/24 06/16/24 History (1-3) Or Fever folic acid 400 mcg tablet 0.4 mg PO DAILY 06/16/24 06/16/24 History gabapentin 800 mg tablet 300 mg PO TID 06/16/24 06/16/24 History lidocaine 4 % topical cream 1 applic topical DAILY 06/16/24 06/16/24 History lisinopril 40 mg tablet 40 mg PO DAILY 06/16/24 06/16/24 History melatonin 3 mg tablet 3 mg PO HS 06/16/24 06/16/24 History methocarbamol 500 mg tablet 500 mg PO QID muscle spasm 06/16/24 06/16/24 History metoprolol succinate 200 mg 200 mg PO HS 06/16/24 06/16/24 History tablet,extended release 24 hr naloxone 4 mg/actuation nasal spray 4 mg intranasal Q3M PRN Opioid 06/16/24 06/16/24 History Reversal oxycodone 5 mg tablet 5 mg PO Q8H PRN Pain 06/16/24 06/16/24 History Allergies Allergy/AdvReac Type Severity Reaction Status Date / Time peanut Allergy Swelling Verified 06/16/24 22:03 mite extract Allergy Nasal Uncoded 06/16/24 22:03 Discharge Vital Signs Vital Signs - 24 hr 06/16/24 17:27 06/16/24 17:41 06/16/24 19:17 Temperature 98.9 F Pulse Rate 104 H 101 H Respiratory Rate 18 18 Blood Pressure 119/80 Pulse Oximetry 96 96 Oxygen Delivery Room Air Room Air 06/16/24 19:01 06/16/24 19:02 06/16/24 19:47 Temperature Pulse Rate 89 86 90 Respiratory Rate 20 23 H 20 Blood Pressure 107/52 L Pulse Oximetry Oxygen Delivery 06/16/24 20:16 06/16/24 20:39 06/16/24 21:00 Temperature Pulse Rate 86 86 85 Respiratory Rate 22 H 22 H 23 H Blood Pressure Pulse Oximetry Oxygen Delivery 06/16/24 21:01 06/16/24 21:02 06/16/24 21:15 Temperature Pulse Rate 85 85 84 Respiratory Rate 20 22 H 22 H Blood Pressure 118/104 H Pulse Oximetry Oxygen Delivery 06/16/24 21:31 06/16/24 21:33 06/16/24 21:45 Temperature Pulse Rate 83 83 90 Respiratory Rate 19 21 H 20 Blood Pressure 96/60 L Pulse Oximetry Oxygen Delivery 06/16/24 21:46 06/16/24 22:07 06/16/24 23:44 Temperature Pulse Rate 84 86 Respiratory Rate 21 H 15 Blood Pressure 98/49 L Pulse Oximetry Oxygen Delivery Room Air 06/16/24 23:44 06/17/24 00:00 06/17/24 04:00 Temperature 98.2 F Pulse Rate 89 90 91 Respiratory Rate 16 Blood Pressure 122/61 Pulse Oximetry 93 Oxygen Delivery 06/17/24 07:19 06/17/24 06:00 06/17/24 08:00 Temperature 98.0 F Pulse Rate 93 Respiratory Rate 18 Blood Pressure 128/64 Pulse Oximetry 94 97 Oxygen Delivery Room Air Room Air Exam Const: General: comfortable and no acute distress Nutritional Appearance: average body habitus Orientation/consciousness: oriented to person, oriented to place and confusion HENMT: Head: normocephalic and atraumatic Ears: hearing grossly normal bilaterally Mouth: Yes moist mucous membranes Eyes: General: appearance normal, both eyes and all related structures Pupils: Equal, round and reactive pupils present Neck: Neck: normal visual inspection and full ROM Resp: Effort & Inspection: no respiratory distress Auscultation: clear to auscultation bilaterally Cardio: Rate: regular rate Rhythm: regular rhythm Heart sounds: S1 normal heart sound present and S2 normal heart sound present GI: Inspection: non-distended and no visible herniation GI Palp: Yes Soft to palpation, No Tenderness to palpation present (GI), No Guarding due to palpation present (GI) and No Rebound tenderness present Auscultation: normal bowel sounds Skin: General skin exam: normal color Neuro: General: moves all extremities and no focal motor deficits Speech: normal speech Motor exam (neuro): 5/5 motor strength present throughout Extrem: Other: Bilateral lower legs with 3+ pitting edema. Right lower leg and foot is swollen with diffuse erythema. His entire lower leg and foot is diffusely tender when examining his skin. There is a wound on the right lateral lower leg that is oval-shaped and appears chronic, it is dry, with a yellow/pale wound base, no purulent drainage, no crepitus, no foul odor. He has multiple wounds on his left lower leg that appear superficial with a yellow wound base. These wounds are on the anterior and lateral lower leg. Left foot has a large brown firm eschar cap on the top of nearly his entire dorsal foot extending from the base of all 5 toes to just distal to the ankle. It extends across the 1st to the 5th metatarsal. The eschar is lifted at all edges with purulent drainage noted at the edges. Purulent foul-smelling drainage expresses around the eschar when palpating the top of the eschar. The left foot is tender. There is also a firm, hard dry sue/brown and black eschar on the center of the plantar foot from the 2nd to the 4th metatarsal with no surrounding erythema, no purulent drainage, no fluctuance. The distal and plantar aspect of the left 3rd toe is black and dry. There is also a black eschar on the distal tip of the 4th toe. All toes appear erythematous and swollen. Capillary refill is slow (> 3 seconds) bilaterally. Pedal pulses are weak but palpable on the right, unable to palpate pedal pulses on the left due to the eschar. Unable to palpate posterior tibial pulses bilaterally. Psych: Attitude: cooperative Insight: Limited insight present (Psych) Judgement: Limited judgement present (Psych) Results Labs 06/16/24 18:36 06/17/24 05:29 Labs: Abnormal lab results 06/16/24 06/16/24 06/16/24 Range/Units 18:36 18:37 21:35 WBC 19.4 H (4.5-10.0) K/mm3 RBC 2.83 L (4.6-6.20) M/mm3 Hgb 7.9 L (14.0-18.0) g/dL Hct 24.4 L (42.0-52.0) % RDW 16.9 H (11.5-14.5) % Immature Gran % (Auto) 3.7 H (0-0.5) % Neut % (Auto) 80.5 H (45.5-73.1) % Lymph % (Auto) 5.9 L (18.3-44.2) % [place] % (Auto) 9.3 H (2.6-8.5) % [place] # (Auto) 1.8 H (0.1-0.6) K/mm3 Abs Immat Gran (auto) 0.72 H (0.00-0.031) K/mm3 Absolute Neuts (auto) 15.7 H (1.3-6.7) K/mm3 ESR > 140 H (0-20) mm/hr PT 16.4 H (11.1-14.7) Seconds Sodium 128 L (137-145) mmol/L Chloride 93 L (98-107) mmol/L BUN 42 H D (9-20) mg/dL Creatinine 1.90 H (0.7-1.3) mg/dL Estimated GFR 36 L (59 - ) Glucose 129 H (65-110) mg/dL Lactic Acid 2.2 H (0.7-2.0) mmol/L Magnesium 2.4 H (1.6-2.3) mg/dL AST 91 H (17-59) U/L ALT 51 H (6-50) U/L Alkaline Phosphatase 226 H (38-126) U/L C-Reactive Protein 16.8 H (<1.0) mg/dL Urine Protein 1+ H (Negative) mg/dL Diabetes panel 06/16/24 06/17/24 Range/Units 18:36 05:29 Sodium 128 L (137-145) mmol/L Potassium 4.5 (3.4-5.0) mmol/L Chloride 93 L (98-107) mmol/L Carbon Dioxide 24 (22-30) mmol/L BUN 42 H D (9-20) mg/dL Creatinine 1.90 H 1.00 (0.7-1.3) mg/dL Glucose 129 H (65-110) mg/dL Calcium 8.6 (8.4-10.2) mg/dL AST 91 H (17-59) U/L ALT 51 H (6-50) U/L Alkaline Phosphatase 226 H (38-126) U/L Total Protein 8.0 (6.3-8.2) g/dL Albumin 3.6 (3.5-5.1) g/dL Calcium panel 06/16/24 Range/Units 18:36 Calcium 8.6 (8.4-10.2) mg/dL Albumin 3.6 (3.5-5.1) g/dL Pituitary panel 06/16/24 06/17/24 Range/Units 18:36 05:29 Sodium 128 L (137-145) mmol/L Potassium 4.5 (3.4-5.0) mmol/L Chloride 93 L (98-107) mmol/L Carbon Dioxide 24 (22-30) mmol/L BUN 42 H D (9-20) mg/dL Creatinine 1.90 H 1.00 (0.7-1.3) mg/dL Glucose 129 H (65-110) mg/dL Calcium 8.6 (8.4-10.2) mg/dL Adrenal panel 06/16/24 06/17/24 Range/Units 18:36 05:29 Sodium 128 L (137-145) mmol/L Potassium 4.5 (3.4-5.0) mmol/L Chloride 93 L (98-107) mmol/L Carbon Dioxide 24 (22-30) mmol/L BUN 42 H D (9-20) mg/dL Creatinine 1.90 H 1.00 (0.7-1.3) mg/dL Glucose 129 H (65-110) mg/dL Calcium 8.6 (8.4-10.2) mg/dL Total Bilirubin 0.6 (0.2-1.3) mg/dL AST 91 H (17-59) U/L ALT 51 H (6-50) U/L Alkaline Phosphatase 226 H (38-126) U/L Total Protein 8.0 (6.3-8.2) g/dL Albumin 3.6 (3.5-5.1) g/dL All other labs normal. Imaging Additional studies: ITS Impressions Foot X-Ray 06/16/24 19:28 IMPRESSION: Findings concerning for osteomyelitis involving the inferior aspect of the distal left fifth metatarsal. Extensive cutaneous defects/ulcerations and likely cellulitis. Tibia/Fibula X-Ray 06/16/24 19:28 IMPRESSION: Findings concerning for osteomyelitis involving the inferior aspect of the distal left fifth metatarsal. Extensive cutaneous defects/ulcerations and likely cellulitis. Head CT 06/16/24 19:59 IMPRESSION: No acute intracranial process. Chest CTA 06/16/24 20:12 IMPRESSION: No acute thoracic process detected. Aorta w/Runoff CTA 06/16/24 20:26 IMPRESSION: Mild esophagitis/gastritis. Possible cirrhosis. Cystitis versus chronic bladder wall thickening from outlet obstruction. 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 Vertebral body endplate deformities resulting in moderate and mild degrees of height loss at L1 and L3 respectively, may be chronic or acute, correlate for pain/tenderness or history of recent trauma. Extensive atherosclerotic disease is seen generally, with extensive stenting of the bilateral lower extremity arteries. There is multivessel flow below the level of the ankle in both lower extremities. Findings concerning for osteomyelitis involving the inferior aspect of the distal fifth metatarsal. Extensive left foot soft tissue ulcerations with overlying edema or cellulitis. Diffuse edema/cellulitis of the right foot.
[2024-06-17] MEDS: CEFEPIME 2 GM/NS 50 ML 2 GM/50 ML BAG IVPB ×2 (09:59→20:17)
--- NOTE | 2024-06-17 14:59 | PM.IMPN ---
Progress Note: A&P Assessment and Plan (1) Foot osteomyelitis, left: Code(s): M86.9 - Osteomyelitis, unspecified Status: Acute (2) PAD (peripheral artery disease): Code(s): I73.9 - Peripheral vascular disease, unspecified Status: Acute (3) Peripheral neuropathy: Qualifiers: Peripheral neuropathy type: polyneuropathy associated with underlying disease Qualified Code(s): G63 - Polyneuropathy in diseases classified elsewhere Code(s): G62.9 - Polyneuropathy, unspecified Status: Acute (4) Alcoholism: Code(s): F10.20 - Alcohol dependence, uncomplicated Status: Acute (5) Infarction of right basal ganglia: Code(s): I63.9 - Cerebral infarction, unspecified Status: Acute (6) Infarction of left basal ganglia: Code(s): I63.9 - Cerebral infarction, unspecified Status: Acute (7) Tobacco abuse: Code(s): Z72.0 - Tobacco use Status: Acute (8) Hypertension: Code(s): I10 - Essential (primary) hypertension Status: Acute (9) Ulcer of left foot: Code(s): L97.529 - Non-pressure chronic ulcer of other part of left foot with unspecified severity Status: Acute Plan Osteomyelitis/PVD Currently on vancomycin and cefepime Started Metronidazole X-ray left foot; Findings concerning for osteomyelitis involving the inferior aspect of the distal left fifth metatarsal. Extensive cutaneous defects/ulcerations and likely cellulitis. Extensive history of PVD (refer to HPI) Surgery offers BKA(patient denies BKA and wanted to transfer to [place]) Pain control Wound culture Local wound care, dressing change as per surgery Non-weight bearing on LLE PT eval for crutch use and ambulation Patient is on aspirin and Plavix Disposition Discussed with Dr.Vipul Elliott office He will be the consulting physician Transfer to [place] Subjective Date/time seen: 06/17/24 14:59 Interval history: Patient is a poor historian. Most of the information is obtained from the surgical consultation and discussed with the surgery team. I called Dr.Vipul Elliott's office. The special officer automat immediately recognized the patient's name. She discussed it with and reported that he wants the patient to go to [place], where he will be the consulting physician. accepted the patient. awaiting transfer to [place]. Surgical note: He has been treated multiple times in the past few months at [facility] for his multiple medical problems. He has been evaluated by Podiatry and vascular surgery at [facility] with recent vascular intervention. He is currently on dual anti-platelet therapy with Plavix/ASA, which has been held. Imaging suggests possible osteomyelitis of the left distal 5th metatarsal. It appears he was treated for osteomyelitis of the left foot at [facility] on previous admissions as well. He has extensive peripheral vascular disease and multiple other medical problems, as well as his antiplatelet therapy that increases his risks for surgery. His left foot ulcer is extensive and appears unlikely to heal with debridement and continued wound care. I discussed the case with Dr. Mendez, who would be able to offer a [id number] at this facility, but the patient is adamant about not wanting an amputation. The other option would be to transfer him to [facility] where he has been receiving his care and could be re-evaluated by vascular surgery Needs extensive record review(pending review) : -Refer to document 01/08/2024 for full review(10/2022 right femur fracture and underwent right femur IMN and Right iliofemoral endarterectomy), left iliofemoral endarterectomy possibly on November 09, 2023. -Had been hospitalized at [place] 11/08-11/10 for angioplasty of the left leg with stent in right external iliac artery. Review of Systems Review of Systems: ROS unobtainable: Yes other ( patient does not know why his in the emergency room) Exam Narrative: laying in a stretcher Const: General: comfortable, no acute distress, well developed, alert, awake, ill appearing chronically and average body habitus Nutritional Appearance: average body habitus Orientation/consciousness: patient oriented x3 Other: looks older than stated age HENMT: Head: normal to inspection, normocephalic and atraumatic Ears: hearing grossly normal bilaterally Face/Nose/Sinus: normal facial exam Face and sinus: normal facial exam Eyes: General: appearance normal, both eyes and all related structures Pupils: Equal, round and reactive pupils present EOM: EOMs intact bilaterally Neck: Neck: full ROM, no lymphadenopathy and no JVD Thyroid: thyroid normal Lymphatic: no lymphadenopathy noted Resp: Effort & Inspection: normal respiratory effort and able to speak in complete sentences Auscultation: clear to auscultation bilaterally Cardio: Jugular venous distension: no JVD Rate: regular rate Rhythm: regular rhythm Heart sounds: S1 normal heart sound present and S2 normal heart sound present : General: Yes deferred Skin: General skin exam: wounds noted Rashes: no rashes Wounds: wounds noted left foot margins with edges rolled under and indurated, without odor and open Neuro: General: patient oriented x3, CN's II-XI intact bilaterally and Unable to assess gait Cranial nerves: Yes CN's II-XII intact bilaterally and Yes Equal, round and reactive pupils present Cognition (Neuro): normal cognition Speech: normal speech Gait exam (Neuro): Unable to assess gait Motor exam (neuro): 5/5 motor strength present throughout Extrem: General: normal to inspection, full ROM, no joint enlargement and no pedal edema Objective Data Vital Signs Vital Signs: Vital Signs - 24 hr 06/16/24 17:27 06/16/24 17:41 06/16/24 19:17 Temperature 98.9 F Pulse Rate 104 H 101 H Respiratory Rate 18 18 Blood Pressure 119/80 Pulse Oximetry 96 96 Oxygen Delivery Room Air Room Air 06/16/24 19:01 06/16/24 19:02 06/16/24 19:47 Temperature Pulse Rate 89 86 90 Respiratory Rate 20 23 H 20 Blood Pressure 107/52 L Pulse Oximetry Oxygen Delivery 06/16/24 20:16 06/16/24 20:39 06/16/24 21:00 Temperature Pulse Rate 86 86 85 Respiratory Rate 22 H 22 H 23 H Blood Pressure Pulse Oximetry Oxygen Delivery 06/16/24 21:01 06/16/24 21:02 06/16/24 21:15 Temperature Pulse Rate 85 85 84 Respiratory Rate 20 22 H 22 H Blood Pressure 118/104 H Pulse Oximetry Oxygen Delivery 06/16/24 21:31 06/16/24 21:33 06/16/24 21:45 Temperature Pulse Rate 83 83 90 Respiratory Rate 19 21 H 20 Blood Pressure 96/60 L Pulse Oximetry Oxygen Delivery 06/16/24 21:46 06/16/24 22:07 06/16/24 23:44 Temperature Pulse Rate 84 86 Respiratory Rate 21 H 15 Blood Pressure 98/49 L Pulse Oximetry Oxygen Delivery Room Air 06/16/24 23:44 06/17/24 00:00 06/17/24 04:00 Temperature 98.2 F Pulse Rate 89 90 91 Respiratory Rate 16 Blood Pressure 122/61 Pulse Oximetry 93 Oxygen Delivery 06/17/24 07:19 06/17/24 06:00 06/17/24 08:00 Temperature 98.0 F Pulse Rate 93 Respiratory Rate 18 Blood Pressure 128/64 Pulse Oximetry 94 97 Oxygen Delivery Room Air Room Air 06/17/24 08:00 06/17/24 12:00 06/17/24 14:00 Temperature 99.1 F Pulse Rate 94 102 H 98 Respiratory Rate 18 Blood Pressure 120/79 Pulse Oximetry 100 Oxygen Delivery Intake/Output Intake/Output: Intake & Output 06/14/24 06/15/24 06/16/24 06/17/24 23:59 23:59 23:59 23:59 Intake Total 50 290 Output Total 1600 Balance 50 -1310 Meds/Results Medications: Active Medications Generic Name Dose Route Start Last Admin Trade Name Freq PRN Reason Stop Dose Admin Acetaminophen 650 mg 06/16/24 21:38 Acetaminophen 650 Mg Suppository RECTAL Q6H PRN Mild Pain (1-3) or Fever Cefepime HCl 2 gm in 50 mls @ 100 mls/hr 06/17/24 08:00 06/17/24 10:29 Maxipime 2 Gm/Ns 50 Ml IVPB Infused Q12H TERRIE Infusion Vancomycin HCl 1,250 mg in 250 mls @ 166.667 mls/hr 06/17/24 15:00 Vancomycin 1,250 Mg/Ns 250 Ml IVPB Q18H TERRIE Ondansetron HCl 4 mg 06/16/24 21:38 Ondansetron Inj 4 Mg/2 Ml Vial IV PUSH Q4H PRN Nausea Radiology Results: ITS Impressions Foot X-Ray 06/16/24 19:28 IMPRESSION: Findings concerning for osteomyelitis involving the inferior aspect of the distal left fifth metatarsal. Extensive cutaneous defects/ulcerations and likely cellulitis. Tibia/Fibula X-Ray 06/16/24 19:28 IMPRESSION: Findings concerning for osteomyelitis involving the inferior aspect of the distal left fifth metatarsal. Extensive cutaneous defects/ulcerations and likely cellulitis. Head CT 06/16/24 19:59 IMPRESSION: No acute intracranial process. Chest CTA 06/16/24 20:12 IMPRESSION: No acute thoracic process detected. Aorta w/Runoff CTA 06/16/24 20:26 IMPRESSION: Mild esophagitis/gastritis. Possible cirrhosis. Cystitis versus chronic bladder wall thickening from outlet obstruction. 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 Vertebral body endplate deformities resulting in moderate and mild degrees of height loss at L1 and L3 respectively, may be chronic or acute, correlate for pain/tenderness or history of recent trauma. Extensive atherosclerotic disease is seen generally, with extensive stenting of the bilateral lower extremity arteries. There is multivessel flow below the level of the ankle in both lower extremities. Findings concerning for osteomyelitis involving the inferior aspect of the distal fifth metatarsal. Extensive left foot soft tissue ulcerations with overlying edema or cellulitis. Diffuse edema/cellulitis of the right foot. Labs Labs: Laboratory Results - last 24 hr 06/16/24 06/16/24 06/16/24 18:36 18:36 18:36 WBC 19.4 H RBC 2.83 L Hgb 7.9 L Hct 24.4 L MCV 86.2 MCH 27.9 MCHC 32.4 RDW 16.9 H Plt Count 358 D MPV 9.3 Immature Gran % (Auto) 3.7 H Neut % (Auto) 80.5 H Lymph % (Auto) 5.9 L Richardson % (Auto) 9.3 H Eos % (Auto) 0.3 Baso % (Auto) 0.3 Lymph # (Auto) 1.14 Richardson # (Auto) 1.8 H Eos # (Auto) 0.1 Baso # (Auto) 0.1 Abs Immat Gran (auto) 0.72 H Absolute Neuts (auto) 15.7 H Absolute Nucleated RBC 0.000 Nucleated RBC % 0.0 ESR Cancelled > 140 H PT 16.4 H INR 1.3 APTT 31.7 Sodium 128 L Potassium 4.5 Chloride 93 L Carbon Dioxide 24 Anion Gap 11 BUN 42 H D Creatinine 1.90 H Estim Creat Clear Calc 36 Estimated GFR 36 L Glucose 129 H Lactic Acid Calcium 8.6 Magnesium 2.4 H Total Bilirubin 0.6 AST 91 H ALT 51 H Alkaline Phosphatase 226 H Troponin I < 0.012 C-Reactive Protein Cancelled 16.8 H Total Protein 8.0 Albumin 3.6 Procalcitonin Urine Color Urine Appearance Urine pH Ur Specific Harvel Urine Protein Urine Glucose (UA) Urine Ketones Ur Blood (Man) Urine Nitrate Urine Bilirubin Urine Urobilinogen Leukocyte Esterase Rfl Urine RBC Urine WBC Ur Squamous Epith Cells Urine Bacteria Urine Casts 06/16/24 06/16/24 06/16/24 18:37 21:35 23:01 WBC RBC Hgb Hct MCV MCH MCHC RDW Plt Count MPV Immature Gran % (Auto) Neut % (Auto) Lymph % (Auto) Richardson % (Auto) Eos % (Auto) Baso % (Auto) Lymph # (Auto) Richardson # (Auto) Eos # (Auto) Baso # (Auto) Abs Immat Gran (auto) Absolute Neuts (auto) Absolute Nucleated RBC Nucleated RBC % ESR PT INR APTT Sodium Potassium Chloride Carbon Dioxide Anion Gap BUN Creatinine Estim Creat Clear Calc Estimated GFR Glucose Lactic Acid 2.2 H 1.9 Calcium Magnesium Total Bilirubin AST ALT Alkaline Phosphatase Troponin I C-Reactive Protein Total Protein Albumin Procalcitonin 0.4 Urine Color Yellow Urine Appearance Clear Urine pH 6.0 Ur Specific Harvel 1.031 Urine Protein 1+ H Urine Glucose (UA) Negative Urine Ketones Negative Ur Blood (Man) Negative Urine Nitrate Negative Urine Bilirubin Negative Urine Urobilinogen 1.0 Leukocyte Esterase Rfl Negative Urine RBC 0-2 Urine WBC 0-5 Ur Squamous Epith Cells None seen Urine Bacteria None seen Urine Casts 0-2 06/17/24 05:29 WBC RBC Hgb Hct MCV MCH MCHC RDW Plt Count MPV Immature Gran % (Auto) Neut % (Auto) Lymph % (Auto) Richardson % (Auto) Eos % (Auto) Baso % (Auto) Lymph # (Auto) Richardson # (Auto) Eos # (Auto) Baso # (Auto) Abs Immat Gran (auto) Absolute Neuts (auto) Absolute Nucleated RBC Nucleated RBC % ESR PT INR APTT Sodium Potassium Chloride Carbon Dioxide Anion Gap BUN Creatinine 1.00 Estim Creat Clear Calc 76 Estimated GFR > 60 Glucose Lactic Acid Calcium Magnesium Total Bilirubin AST ALT Alkaline Phosphatase Troponin I C-Reactive Protein Total Protein Albumin Procalcitonin Urine Color Urine Appearance Urine pH Ur Specific Harvel Urine Protein Urine Glucose (UA) Urine Ketones Ur Blood (Man) Urine Nitrate Urine Bilirubin Urine Urobilinogen Leukocyte Esterase Rfl Urine RBC Urine WBC Ur Squamous Epith Cells Urine Bacteria Urine Casts Hospitalist MIPS Advance Care Plan I have confirmed that the patient's Advanced Care Plan is present, code status is documented, or surrogate decision maker is listed in patient medical record.: Yes Medication Reconciliation I have utilized all available resources to obtain, update and review the patients current medications (includes all prescriptions, OTC, herbals, cannabis, and nutritional supplements).: Yes
[2024-06-17] MEDS: VANCOMYCIN 1,250 MG/NS 250 ML 1,250 MG/250 ML BAG 166.67 MG IVPB (15:14)
[2024-06-17] MEDS: methocarbamoL 500 MG TABLET PO ×2 (16:20→20:17)
[2024-06-17] MEDS: GABAPENTIN 300 MG CAPSULE PO (16:20)
[2024-06-17] MEDS: metroNIDAZOLE 500 MG TABLET PO ×2 (16:20→20:18)
[2024-06-17] MEDS: oxyCODONE HCL (*CRX) 5 MG TAB IR PO (16:22)
[2024-06-17 17:19] LABS: Hematocrit 22.6 % (42.0-52.0); Hemoglobin 7.3 g/dL (14.0-18.0); Mean Corpuscular HGB Conc 32.3 g/dl (32-36); Mean Corpuscular Hemoglobin 27.2 pg (26-34); Mean Corpuscular Volume 84.3 fl (80-100); Mean Platelet Volume 8.6 fl (7.4-10.4); Platelet Count Result 354 k/mm3 (150-375); Red Blood Count 2.68 M/mm3 (4.6-6.20); White Blood Count 19.3 K/mm3 (4.5-10.0)
[2024-06-17 17:45] LABS: Alanine Aminotransferase 44 U/L (6-50); Albumin Level 3.2 g/dL (3.5-5.1); Alkaline Phosphatase 210 U/L (38-126); Anion Gap 8 mmol/L (4-12); Aspartate Amino Transferase 68 U/L (17-59); Bilirubin,Total 0.7 mg/dL (0.2-1.3); Blood Urea Nitrogen 21 mg/dL (9-20); Calcium 8.4 mg/dL (8.4-10.2); Carbon Dioxide 24 mmol/L (22-30); Chloride 99 mmol/L (98-107); Estimated CRCL calculation 94 ml/min; Estimated Glomerular Filt Rate > 60; Glucose 139 mg/dL (65-110); Potassium 3.8 mmol/L (3.4-5.0); Sodium 131 mmol/L (137-145)
[2024-06-17] MEDS: MELATONIN 3 MG TABLET PO (20:17)
[2024-06-17] MEDS: ATORVASTATIN 40 MG TABLET PO (20:17)
[2024-06-17] MEDS: METOPROLOL SUCCINATE EXT REL 100 MG TABCR 200 MG PO (20:17)
[2024-06-18] VITALS (10 sets, daily range): BP systolic 112–138; BP diastolic 57–74; PULSE 70–82; RESP 16–20; TEMP 36.8–37.1; O2SAT 98–100
[2024-06-18] MEDS: oxyCODONE HCL (*CRX) 5 MG TAB IR PO ×3 (02:19→21:06)
[2024-06-18] MEDS: metroNIDAZOLE 500 MG TABLET PO ×3 (05:45→21:05)
[2024-06-18 08:38] LABS: Vancomycin Trough 9.5 ug/mL (10.0-20.0)
[2024-06-18 08:42] LABS: Basophils Absolute Auto 0.1 K/mm3 (0.0-0.1); Basophils Percent Auto 0.4 % (0.2-1.2); Eosinophils Absolute Auto 0.1 K/mm3 (0-0.3); Eosinophils Percent Auto 0.5 % (0-4.4); Hematocrit 24.5 % (42.0-52.0); Hemoglobin 8.1 g/dL (14.0-18.0); Immature Granulocyte Absolute 0.43 K/mm3 (0.00-0.031); Immature Granulocyte Percent A 2.2 % (0-0.5); Lymphocytes Absolute Auto 1.46 K/mm3 (0.9-3.2); Lymphocytes Percent Auto 7.6 % (18.3-44.2); Mean Corpuscular HGB Conc 33.1 g/dl (32-36); Mean Corpuscular Hemoglobin 28.6 pg (26-34); Mean Corpuscular Volume 86.6 fl (80-100); Monocytes Absolute Auto 1.4 K/mm3 (0.1-0.6); Monocytes Percent Auto 7.3 % (2.6-8.5); Neutrophils Absolute Auto 15.9 K/mm3 (1.3-6.7); Platelet Count Result 426 k/mm3 (150-375); Red Blood Count 2.83 M/mm3 (4.6-6.20); White Blood Count 19.3 K/mm3 (4.5-10.0)
[2024-06-18 08:43] LABS: Alanine Aminotransferase 48 U/L (6-50); Albumin Level 3.4 g/dL (3.5-5.1); Alkaline Phosphatase 220 U/L (38-126); Anion Gap 10 mmol/L (4-12); Aspartate Amino Transferase 86 U/L (17-59); Blood Urea Nitrogen 14 mg/dL (9-20); Calcium 8.8 mg/dL (8.4-10.2); Carbon Dioxide 25 mmol/L (22-30); Chloride 98 mmol/L (98-107); Estimated CRCL calculation 94 ml/min; Estimated Glomerular Filt Rate > 60; Glucose 135 mg/dL (65-110); Potassium 3.9 mmol/L (3.4-5.0); Sodium 133 mmol/L (137-145)
[2024-06-18 09:19] LABS: Hemoglobin A1C 5.9 % (<5.7)
--- NOTE | 2024-06-18 09:26 | P.PNGS_ITS ---
Progress Note: A&P Assessment and Plan (1) Ulcer of left foot: Code(s): L97.529 - Non-pressure chronic ulcer of other part of left foot with unspecified severity Status: Acute Assessment and Plan: * Patient is refusing below-knee amputation. He wishes to be transferred to a tertiary care facility where he can be evaluated by vascular surgery to see if there is any additional options for salvaging his limb. Hospitalist is attempting transfer to [facility] or [facility]. * Continue local wound care and IV antibiotics (2) Foot osteomyelitis, left: Code(s): M86.9 - Osteomyelitis, unspecified Status: Acute Assessment and Plan: * Continue IV antibiotics (3) PAD (peripheral artery disease): Code(s): I73.9 - Peripheral vascular disease, unspecified Status: Acute Assessment and Plan: * Extensive peripheral vascular disease with multiple previous interventions by vascular surgery at [facility]. See plan above. (4) Venous stasis: Code(s): I87.8 - Other specified disorders of veins Status: Acute (5) Alcoholism: Code(s): F10.20 - Alcohol dependence, uncomplicated Status: Acute (6) Tobacco abuse: Code(s): Z72.0 - Tobacco use Status: Acute (7) Carotid artery disease: Code(s): I77.9 - Disorder of arteries and arterioles, unspecified Status: Acute Assessment and Plan: Extensive carotid artery disease bilaterally approaching 100% stenosis on imaging at [facility]. He was evaluated by vascular surgery who deferred surgical management at that time with recommendations of medical management with [facility]. 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 Plan I have discussed the patient's case and plan of care with Dr. Mendez. Subjective Subjective Date/Time Seen: 06/18/24 09:26 Patient reports: no new complaints and afebrile Interval history: No acute changes overnight. Patient denies any complaints or any pain at this time. Exam Const: General: comfortable and no acute distress Skin: Other: Bilateral lower extremity gauze dressing dry and intact Objective Data Vital Signs Vital Signs: Vital Signs - 24 hr 06/17/24 12:00 06/17/24 14:00 06/17/24 16:00 Temperature 99.1 F Pulse Rate 102 H 98 102 H Respiratory Rate 18 Blood Pressure 120/79 Pulse Oximetry 100 Oxygen Delivery 06/17/24 20:00 06/17/24 20:00 06/17/24 21:58 Temperature 99.1 F Pulse Rate 98 86 Respiratory Rate 20 Blood Pressure 128/64 Pulse Oximetry 100 Oxygen Delivery Room Air 06/18/24 00:00 06/18/24 04:00 06/18/24 06:00 Temperature 98.3 F Pulse Rate 79 72 70 Respiratory Rate 20 Blood Pressure 112/58 L Pulse Oximetry 99 Oxygen Delivery Intake/Output Intake/Output: Intake & Output 06/15/24 06/16/24 06/17/24 06/18/24 23:59 23:59 23:59 23:59 Intake Total 50 1380 600 Output Total 2900 1500 Balance 50 1520 -900 Meds/Results Medications: Active Medications Generic Name Dose Route Start Last Admin Trade Name Freq PRN Reason Stop Dose Admin Acetaminophen 650 mg 06/18/24 08:56 Acetaminophen 325 Mg Tablet BY MOUTH Q6H PRN Mild Pain (1-3) or Fever Amlodipine Besylate 2.5 mg 06/18/24 09:00 Amlodipine Besylate 2.5 Mg Tablet PO DAILY [facility] Aspirin 81 mg 06/18/24 09:00 Aspirin 81 Mg Enteric Tablet PO DAILY [facility] Atorvastatin Calcium 40 mg 06/17/24 21:00 06/17/24 20:17 Atorvastatin 40 Mg Tablet PO 40 mg QHS TERRIE Administration Clopidogrel Bisulfate 75 mg 06/18/24 09:00 Clopidogrel Bisulfate 75 Mg Tablet PO DAILY [facility] Gabapentin 300 mg 06/17/24 17:00 06/17/24 16:20 Gabapentin 300 Mg Capsule PO 300 mg TID TERRIE Administration Cefepime HCl 2 gm in 50 mls @ 100 mls/hr 06/17/24 08:00 06/17/24 20:47 Maxipime 2 Gm/Ns 50 Ml IVPB Infused Q12H TERRIE Infusion Vancomycin HCl 1,250 mg in 250 mls @ 166.667 mls/hr 06/17/24 15:00 06/17/24 16:44 Vancomycin 1,250 Mg/Ns 250 Ml IVPB Infused Q18H TERRIE Infusion Lisinopril 40 mg 06/18/24 09:00 Lisinopril 20 Mg Tablet PO DAILY [facility] Melatonin 3 mg 06/17/24 21:00 06/17/24 20:17 Melatonin 3 Mg Tablet PO 3 mg HS TERRIE Administration Methocarbamol 500 mg 06/17/24 17:00 06/17/24 20:17 Methocarbamol 500 Mg Tablet PO 500 mg QID TERRIE Administration Metoprolol Succinate 200 mg 06/17/24 21:00 06/17/24 20:17 Metoprolol Succinate Ext Rel 100 Mg Tabcr PO 200 mg HS TERRIE Administration Metronidazole 500 mg 06/17/24 16:15 06/18/24 05:45 Metronidazole 500 Mg Tablet PO 500 mg Q8HR TERRIE Administration Ondansetron HCl 4 mg 06/16/24 21:38 Ondansetron Inj 4 Mg/2 Ml Vial IV PUSH Q4H PRN Nausea Oxycodone HCl 5 mg 06/17/24 15:28 06/18/24 02:19 Oxycodone Hcl (*Crx) 5 Mg Tab Ir PO 5 mg Q8H PRN Administration Pain Radiology Results: ITS Impressions Foot X-Ray 06/16/24 19:28 IMPRESSION: Findings concerning for osteomyelitis involving the inferior aspect of the distal left fifth metatarsal. Extensive cutaneous defects/ulcerations and likely cellulitis. Tibia/Fibula X-Ray 06/16/24 19:28 IMPRESSION: Findings concerning for osteomyelitis involving the inferior aspect of the distal left fifth metatarsal. Extensive cutaneous defects/ulcerations and likely cellulitis. Head CT 06/16/24 19:59 IMPRESSION: No acute intracranial process. Chest CTA 06/16/24 20:12 IMPRESSION: No acute thoracic process detected. Aorta w/Runoff CTA 06/16/24 20:26 IMPRESSION: Mild esophagitis/gastritis. Possible cirrhosis. Cystitis versus chronic bladder wall thickening from outlet obstruction. 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 Vertebral body endplate deformities resulting in moderate and mild degrees of height loss at L1 and L3 respectively, may be chronic or acute, correlate for pain/tenderness or history of recent trauma. Extensive atherosclerotic disease is seen generally, with extensive stenting of the bilateral lower extremity arteries. There is multivessel flow below the level of the ankle in both lower extremities. Findings concerning for osteomyelitis involving the inferior aspect of the distal fifth metatarsal. Extensive left foot soft tissue ulcerations with overlying edema or cellulitis. Diffuse edema/cellulitis of the right foot. Labs Labs: Laboratory Results - last 24 hr 06/17/24 06/18/24 17:14 08:08 WBC 19.3 H 19.3 H RBC 2.68 L 2.83 L Hgb 7.3 L 8.1 L Hct 22.6 L 24.5 L MCV 84.3 86.6 MCH 27.2 28.6 D MCHC 32.3 33.1 RDW 17.0 H 17.0 H Plt Count 354 426 H MPV 8.6 9.0 Immature Gran % (Auto) 2.2 H Neut % (Auto) 82.0 H Lymph % (Auto) 7.6 L Norman % (Auto) 7.3 Eos % (Auto) 0.5 Baso % (Auto) 0.4 Lymph # (Auto) 1.46 Norman # (Auto) 1.4 H Eos # (Auto) 0.1 Baso # (Auto) 0.1 Abs Immat Gran (auto) 0.43 H Absolute Neuts (auto) 15.9 H Absolute Nucleated RBC 0.000 Nucleated RBC % 0.0 Sodium 131 L 133 L Potassium 3.8 3.9 Chloride 99 98 Carbon Dioxide 24 25 Anion Gap 8 10 BUN 21 H D 14 D Creatinine 0.80 0.80 Estim Creat Clear Calc 94 94 Estimated GFR > 60 > 60 Glucose 139 H 135 H Hemoglobin A1c 5.9 H Calcium 8.4 8.8 Total Bilirubin 0.7 1.0 AST 68 H 86 H ALT 44 48 Alkaline Phosphatase 210 H 220 H Total Protein 8.0 9.0 H Albumin 3.2 L 3.4 L Vancomycin Trough 9.5 L
[2024-06-18] MEDS: GABAPENTIN 300 MG CAPSULE PO ×3 (09:43→18:07)
[2024-06-18] MEDS: ASPIRIN 81 MG ENTERIC TABLET PO (09:43)
[2024-06-18] MEDS: lisinopriL 20 MG TABLET 40 MG PO (09:43)
[2024-06-18] MEDS: CLOPIDOGREL BISULFATE 75 MG TABLET PO (09:43)
[2024-06-18] MEDS: amLODIPine BESYLATE 2.5 MG TABLET PO (09:43)
[2024-06-18] MEDS: methocarbamoL 500 MG TABLET PO ×4 (09:43→21:05)
[2024-06-18] MEDS: CEFEPIME 2 GM/NS 50 ML 2 GM/50 ML BAG IVPB ×2 (09:44→21:03)
[2024-06-18] MEDS: VANCOMYCIN 1,500 MG/NS 500 ML 1,500 MG/500 ML BAG 250 MG IVPB ×2 (10:57→21:04)
--- NOTE | 2024-06-18 11:24 | P.PNIM_ITS ---
Progress Note: A&P Assessment and Plan (1) Foot osteomyelitis, left: Code(s): M86.9 - Osteomyelitis, unspecified Status: Acute (2) PAD (peripheral artery disease): Code(s): I73.9 - Peripheral vascular disease, unspecified Status: Acute (3) Peripheral neuropathy: Qualifiers: Peripheral neuropathy type: polyneuropathy associated with underlying disease Qualified Code(s): G63 - Polyneuropathy in diseases classified elsewhere Code(s): G62.9 - Polyneuropathy, unspecified Status: Acute (4) Alcoholism: Code(s): F10.20 - Alcohol dependence, uncomplicated Status: Acute (5) Infarction of right basal ganglia: Code(s): I63.9 - Cerebral infarction, unspecified Status: Acute (6) Infarction of left basal ganglia: Code(s): I63.9 - Cerebral infarction, unspecified Status: Acute (7) Tobacco abuse: Code(s): Z72.0 - Tobacco use Status: Acute (8) Hypertension: Code(s): I10 - Essential (primary) hypertension Status: Acute (9) Ulcer of left foot: Code(s): L97.529 - Non-pressure chronic ulcer of other part of left foot with unspecified severity Status: Acute Plan Osteomyelitis/PVD Currently on vancomycin and cefepime Started Metronidazole X-ray left foot; Findings concerning for osteomyelitis involving the inferior aspect of the distal left fifth metatarsal. Extensive cutaneous defects/ulcerations and likely cellulitis. Extensive history of PVD (refer to HPI) Surgery offers BKA(patient denies BKA and wanted to transfer to [place]) Pain control Wound culture Local wound care, dressing change as per surgery Non-weight bearing on LLE PT eval for crutch use and ambulation Patient is on aspirin and Plavix Disposition Discussed with Dr.Vipul Elliott office He will be the consulting physician Awaiting Transfer to [place] Subjective Date/time seen: 06/18/24 11:24 Interval history: Patient comfortable at bedside however he continues to decline BKA and currently awaiting [facility] transfer per his wishes Dr Lees already discussed with Dr Javon Elliott's office and it was recommended that he transfer patient to [facility] and patient will be consulted on by Dr Morgan. Currently awaiting transfer to [facility]. Needs extensive record review(pending review) : -Refer to document 01/08/2024 for full review(10/2022 right femur fracture and underwent right femur IMN and Right iliofemoral endarterectomy), left iliofemoral endarterectomy possibly on November 09, 2023. -Had been hospitalized at [place] 11/08-11/10 for angioplasty of the left leg with stent in right external iliac artery. Review of Systems Review of Systems: ROS unobtainable: Yes other ( patient does not know why his in the emergency room) Exam Narrative: laying in a stretcher Const: General: comfortable, no acute distress, well developed, alert, awake, ill appearing chronically and average body habitus Nutritional Appearance: average body habitus Orientation/consciousness: patient oriented x3 Other: looks older than stated age HENMT: Head: normal to inspection, normocephalic and atraumatic Ears: hearing grossly normal bilaterally Face/Nose/Sinus: normal facial exam Face and sinus: normal facial exam Eyes: General: appearance normal, both eyes and all related structures Pupils: Equal, round and reactive pupils present EOM: EOMs intact bilaterally Neck: Neck: full ROM, no lymphadenopathy and no JVD Thyroid: thyroid normal Lymphatic: no lymphadenopathy noted Resp: Effort & Inspection: normal respiratory effort and able to speak in complete sentences Auscultation: clear to auscultation bilaterally Cardio: Jugular venous distension: no JVD Rate: regular rate Rhythm: re gular rhythm Heart sounds: S1 normal heart sound present and S2 normal heart sound present : General: Yes deferred Skin: General skin exam: wounds noted Rashes: no rashes Wounds: wounds noted left foot margins with edges rolled under and indurated, without odor and open Neuro: General: patient oriented x3, CN's II-XI intact bilaterally and Unable to assess gait Cranial nerves: Yes CN's II-XII intact bilaterally and Yes Equal, round and reactive pupils present Cognition (Neuro): normal cognition Speech: normal speech Gait exam (Neuro): Unable to assess gait Motor exam (neuro): 5/5 motor strength present throughout Extrem: General: normal to inspection, full ROM, no joint enlargement and no pedal edema Objective Data Vital Signs Vital Signs: Vital Signs - 24 hr 06/17/24 12:00 06/17/24 14:00 06/17/24 16:00 Temperature 99.1 F Pulse Rate 102 H 98 102 H Respiratory Rate 18 Blood Pressure 120/79 Pulse Oximetry 100 Oxygen Delivery 06/17/24 20:00 06/17/24 20:00 06/17/24 21:58 Temperature 99.1 F Pulse Rate 98 86 Respiratory Rate 20 Blood Pressure 128/64 Pulse Oximetry 100 Oxygen Delivery Room Air 06/18/24 00:00 06/18/24 04:00 06/18/24 06:00 Temperature 98.3 F Pulse Rate 79 72 70 Respiratory Rate 20 Blood Pressure 112/58 L Pulse Oximetry 99 Oxygen Delivery 06/18/24 08:00 Temperature Pulse Rate 73 Respiratory Rate Blood Pressure Pulse Oximetry Oxygen Delivery Intake/Output Intake/Output: Intake & Output 06/15/24 06/16/24 06/17/24 06/18/24 23:59 23:59 23:59 23:59 Intake Total 50 1380 890 Output Total 2900 1500 Balance 37 -3481 -305 Meds/Results Medications: Active Medications Generic Name Dose Route Start Last Admin Trade Name Freq PRN Reason Stop Dose Admin Acetaminophen 650 mg 06/18/24 08:56 Acetaminophen 325 Mg Tablet BY MOUTH Q6H PRN Mild Pain (1-3) or Fever Amlodipine Besylate 2.5 mg 06/18/24 09:00 06/18/24 09:43 Amlodipine Besylate 2.5 Mg Tablet PO 2.5 mg DAILY TERRIE Administration Aspirin 81 mg 06/18/24 09:00 06/18/24 09:43 Aspirin 81 Mg Enteric Tablet PO 81 mg DAILY TERRIE Administration Atorvastatin Calcium 40 mg 06/17/24 21:00 06/17/24 20:17 Atorvastatin 40 Mg Tablet PO 40 mg QHS TERRIE Administration Clopidogrel Bisulfate 75 mg 06/18/24 09:00 06/18/24 09:43 Clopidogrel Bisulfate 75 Mg Tablet PO 75 mg DAILY TERRIE Administration Gabapentin 300 mg 06/17/24 17:00 06/18/24 09:43 Gabapentin 300 Mg Capsule PO 300 mg TID TERRIE Administration Cefepime HCl 2 gm in 50 mls @ 100 mls/hr 06/17/24 08:00 06/18/24 10:14 Maxipime 2 Gm/Ns 50 Ml IVPB Infused Q12H TERRIE Infusion Vancomycin HCl 1,500 mg in 500 mls @ 250 mls/hr 06/18/24 10:00 06/18/24 10:57 Vancomycin 1,500 Mg/Ns 500 Ml IVPB 250 mls/hr Q12H TERRIE Administration Lisinopril 40 mg 06/18/24 09:00 06/18/24 09:43 Lisinopril 20 Mg Tablet PO 40 mg DAILY TERRIE Administration Melatonin 3 mg 06/17/24 21:00 06/17/24 20:17 Melatonin 3 Mg Tablet PO 3 mg HS TERRIE Administration Methocarbamol 500 mg 06/17/24 17:00 06/18/24 09:43 Methocarbamol 500 Mg Tablet PO 500 mg QID TERRIE Administration Metoprolol Succinate 200 mg 06/17/24 21:00 06/17/24 20:17 Metoprolol Succinate Ext Rel 100 Mg Tabcr PO 200 mg HS TERRIE Administration Metronidazole 500 mg 06/17/24 16:15 06/18/24 05:45 Metronidazole 500 Mg Tablet PO 500 mg Q8HR TERRIE Administration Ondansetron HCl 4 mg 06/16/24 21:38 Ondansetron Inj 4 Mg/2 Ml Vial IV PUSH Q4H PRN Nausea Oxycodone HCl 5 mg 06/17/24 15:28 06/18/24 09:50 Oxycodone Hcl (*Crx) 5 Mg Tab Ir PO 5 mg Q8H PRN Administration Pain Radiology Results: ITS Impressions Foot X-Ray 06/16/24 19:28 IMPRESSION: Findings concerning for osteomyelitis involving the inferior aspect of the distal left fifth metatarsal. Extensive cutaneous defects/ulcerations and likely cellulitis. Tibia/Fibula X-Ray 06/16/24 19:28 IMPRESSION: Findings concerning for osteomyelitis involving the inferior aspect of the distal left fifth metatarsal. Extensive cutaneous defects/ulcerations and likely cellulitis. Head CT 06/16/24 19:59 IMPRESSION: No acute intracranial process. Chest CTA 06/16/24 20:12 IMPRESSION: No acute thoracic process detected. Aorta w/Runoff CTA 06/16/24 20:26 IMPRESSION: Mild esophagitis/gastritis. Possible cirrhosis. Cystitis versus chronic bladder wall thickening from outlet obstruction. 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 Vertebral body endplate deformities resulting in moderate and mild degrees of height loss at L1 and L3 respectively, may be chronic or acute, correlate for pain/tenderness or history of recent trauma. Extensive atherosclerotic disease is seen generally, with extensive stenting of the bilateral lower extremity arteries. There is multivessel flow below the level of the ankle in both lower extremities. Findings concerning for osteomyelitis involving the inferior aspect of the distal fifth metatarsal. Extensive left foot soft tissue ulcerations with overlying edema or cellulitis. Diffuse edema/cellulitis of the right foot. Labs Labs: Laboratory Results - last 24 hr 06/17/24 06/18/24 17:14 08:08 WBC 19.3 H 19.3 H RBC 2.68 L 2.83 L Hgb 7.3 L 8.1 L Hct 22.6 L 24.5 L MCV 84.3 86.6 MCH 27.2 28.6 D MCHC 32.3 33.1 RDW 17.0 H 17.0 H Plt Count 354 426 H MPV 8.6 9.0 Immature Gran % (Auto) 2.2 H Neut % (Auto) 82.0 H Lymph % (Auto) 7.6 L Gosper % (Auto) 7.3 Eos % (Auto) 0.5 Baso % (Auto) 0.4 Lymph # (Auto) 1.46 [place]per # (Auto) 1.4 H Eos # (Auto) 0.1 Baso # (Auto) 0.1 Abs Immat Gran (auto) 0.43 H Absolute Neuts (auto) 15.9 H Absolute Nucleated RBC 0.000 Nucleated RBC % 0.0 Sodium 131 L 133 L Potassium 3.8 3.9 Chloride 99 98 Carbon Dioxide 24 25 Anion Gap 8 10 BUN 21 H D 14 D Creatinine 0.80 0.80 Estim Creat Clear Calc 94 94 Estimated GFR > 60 > 60 Glucose 139 H 135 H Hemoglobin A1c 5.9 H Calcium 8.4 8.8 Total Bilirubin 0.7 1.0 AST 68 H 86 H ALT 44 48 Alkaline Phosphatase 210 H 220 H Total Protein 8.0 9.0 H Albumin 3.2 L 3.4 L Vancomycin Trough 9.5 L
[2024-06-18] MEDS: traMADol HCL (*CRX) 50 MG TABLET 100 MG PO (18:06)
[2024-06-18] MEDS: ATORVASTATIN 40 MG TABLET PO (21:05)
[2024-06-18] MEDS: METOPROLOL SUCCINATE EXT REL 100 MG TABCR 200 MG PO (21:05)
[2024-06-18] MEDS: MELATONIN 3 MG TABLET PO (21:05)
[2024-06-19] VITALS (9 sets, daily range): BP systolic 106–112; BP diastolic 58–66; PULSE 66–72; RESP 16–18; TEMP 36.9–37.1; O2SAT 99–100
[2024-06-19] MEDS: traMADol HCL (*CRX) 50 MG TABLET 100 MG PO ×3 (00:41→20:44)
[2024-06-19] MEDS: metroNIDAZOLE 500 MG TABLET PO ×3 (05:27→22:56)
[2024-06-19] MEDS: oxyCODONE HCL (*CRX) 5 MG TAB IR PO ×3 (05:27→22:56)
[2024-06-19 06:49] LABS: Estimated CRCL calculation 106 ml/min; Estimated Glomerular Filt Rate > 60
[2024-06-19] MEDS: ASPIRIN 81 MG ENTERIC TABLET PO (08:43)
[2024-06-19] MEDS: CLOPIDOGREL BISULFATE 75 MG TABLET PO (08:43)
[2024-06-19] MEDS: CEFEPIME 2 GM/NS 50 ML 2 GM/50 ML BAG IVPB ×2 (08:43→21:23)
[2024-06-19] MEDS: methocarbamoL 500 MG TABLET PO ×4 (08:43→20:44)
[2024-06-19] MEDS: GABAPENTIN 300 MG CAPSULE PO ×3 (08:43→17:48)
[2024-06-19] MEDS: lisinopriL 20 MG TABLET 40 MG PO (08:44)
[2024-06-19] MEDS: amLODIPine BESYLATE 2.5 MG TABLET PO (08:44)
[2024-06-19] MEDS: VANCOMYCIN 1,500 MG/NS 500 ML 1,500 MG/500 ML BAG 250 MG IVPB ×2 (09:15→22:55)
--- NOTE | 2024-06-19 13:15 | P.PNIM_ITS ---
Progress Note: A&P Assessment and Plan (1) Foot osteomyelitis, left: Code(s): M86.9 - Osteomyelitis, unspecified Status: Acute (2) PAD (peripheral artery disease): Code(s): I73.9 - Peripheral vascular disease, unspecified Status: Acute (3) Peripheral neuropathy: Qualifiers: Peripheral neuropathy type: polyneuropathy associated with underlying disease Qualified Code(s): G63 - Polyneuropathy in diseases classified elsewhere Code(s): G62.9 - Polyneuropathy, unspecified Status: Acute (4) Alcoholism: Code(s): F10.20 - Alcohol dependence, uncomplicated Status: Acute (5) Infarction of right basal ganglia: Code(s): I63.9 - Cerebral infarction, unspecified Status: Acute (6) Infarction of left basal ganglia: Code(s): I63.9 - Cerebral infarction, unspecified Status: Acute (7) Tobacco abuse: Code(s): Z72.0 - Tobacco use Status: Acute (8) Hypertension: Code(s): I10 - Essential (primary) hypertension Status: Acute (9) Ulcer of left foot: Code(s): L97.529 - Non-pressure chronic ulcer of other part of left foot with unspecified severity Status: Acute Plan Osteomyelitis/PVD Currently on vancomycin and cefepime Started Metronidazole X-ray left foot; Findings concerning for osteomyelitis involving the inferior aspect of the distal left fifth metatarsal. Extensive cutaneous defects/ulcerations and likely cellulitis. Extensive history of PVD (refer to HPI) Surgery offers BKA(patient denies BKA and wanted to transfer to [place]) Pain control Wound culture Local wound care, dressing change as per surgery Non-weight bearing on LLE PT eval for crutch use and ambulation Patient is on aspirin and Plavix Disposition Discussed with Dr.Vipul Elliott office He will be the consulting physician Awaiting Transfer to [place] Subjective Date/time seen: 06/19/24 13:15 Interval history: Patient comfortable at bedside however he continues to decline BKA and currently awaiting [facility] transfer per his wishes Dr Lees already discussed with Dr Javon Elliott's office and it was recommended that he transfer patient to [facility] and patient will be consulted on by Dr Morgan. Currently awaiting transfer to [facility]. Needs extensive record review(pending review) : -Refer to document 01/08/2024 for full review(10/2022 right femur fracture and underwent right femur IMN and Right iliofemoral endarterectomy), left iliofemoral endarterectomy possibly on November 09, 2023. -Had been hospitalized at [place] 11/08-11/10 for angioplasty of the left leg with stent in right external iliac artery. awaiting transfer to [facility] Review of Systems Review of Systems: ROS unobtainable: Yes other ( patient does not know why his in the emergency room) Exam Narrative: laying in a stretcher Const: General: comfortable, no acute distress, well developed, alert, awake, ill appearing chronically and average body habitus Nutritional Appearance: average body habitus Orientation/consciousness: patient oriented x3 Other: looks older than stated age HENMT: Head: normal to inspection, normocephalic and atraumatic Ears: hearing grossly normal bilaterally Face/Nose/Sinus: normal facial exam Face and sinus: normal facial exam Eyes: General: appearance normal, both eyes and all related structures Pupils: Equal, round and reactive pupils present EOM: EOMs intact bilaterally Neck: Neck: full ROM, no lymphadenopathy and no JVD Thyroid: thyroid normal Lymphatic: no lymphadenopathy noted Resp: Effort & Inspection: normal respiratory effort and able to speak in complete sentences Auscultation: clear to auscultation bilaterally Cardio: Jugular venous distension: no JVD Rate: regular rate Rhythm: regular rhythm Heart sounds: S1 normal heart sound present and S2 normal heart sound present : General: Yes deferred Skin: General skin exam: wounds noted Rashes: no rashes Wounds: wounds noted left foot margins with edges rolled under and indurated, without odor and open Neuro: General: patient oriented x3, CN's II-XI intact bilaterally and Unable to assess gait Cranial nerves: Yes CN's II-XII intact bilaterally and Yes Equal, round and reactive pupils present Cognition (Neuro): normal cognition Speech: normal speech Gait exam (Neuro): Unable to assess gait Motor exam (neuro): 5/5 motor strength present throughout Extrem: General: normal to inspection, full ROM, no joint enlargement and no pedal edema Objective Data Vital Signs Vital Signs: Vital Signs - 24 hr 06/18/24 14:00 06/18/24 16:00 06/18/24 21:17 Temperature 98.4 F 98.8 F Pulse Rate 75 79 82 Respiratory Rate 18 16 Blood Pressure 133/68 138/74 Pulse Oximetry 100 98 Oxygen Delivery 06/18/24 20:00 06/18/24 20:00 06/19/24 00:00 Temperature Pulse Rate 82 72 Respiratory Rate Blood Pressure Pulse Oximetry Oxygen Delivery Room Air 06/19/24 04:00 06/19/24 05:19 06/19/24 08:00 Temperature 98.4 F Pulse Rate 70 70 Respiratory Rate 16 Blood Pressure 111/66 Pulse Oximetry 100 Oxygen Delivery Room Air 06/19/24 08:00 06/19/24 12:00 Temperature Pulse Rate 67 66 Respiratory Rate Blood Pressure Pulse Oximetry Oxygen Delivery Intake/Output Intake/Output: Intake & Output 06/16/24 06/17/24 06/18/24 06/19/24 23:59 23:59 23:59 23:59 Intake Total 50 1380 3400 2450 Output Total 2900 2150 1200 Balance 50 -1520 1250 1250 Meds/Results Medications: Active Medications Generic Name Dose Route Start Last Admin Trade Name Freq PRN Reason Stop Dose Admin Acetaminophen 650 mg 06/18/24 08:56 Acetaminophen 325 Mg Tablet BY MOUTH Q6H PRN Mild Pain (1-3) or Fever Amlodipine Besylate 2.5 mg 06/18/24 09:00 06/19/24 08:44 Amlodipine Besylate 2.5 Mg Tablet PO 2.5 mg DAILY TERRIE Administration Aspirin 81 mg 06/18/24 09:00 06/19/24 08:43 Aspirin 81 Mg Enteric Tablet PO 81 mg DAILY TERRIE Administration Atorvastatin Calcium 40 mg 06/17/24 21:00 06/18/24 21:05 Atorvastatin 40 Mg Tablet PO 40 mg QHS TERRIE Administration Clopidogrel Bisulfate 75 mg 06/18/24 09:00 06/19/24 08:43 Clopidogrel Bisulfate 75 Mg Tablet PO 75 mg DAILY TERRIE Administration Gabapentin 300 mg 06/17/24 17:00 06/19/24 08:43 Gabapentin 300 Mg Capsule PO 300 mg TID TERRIE Administration Cefepime HCl 2 gm in 50 mls @ 100 mls/hr 06/17/24 08:00 06/19/24 09:13 Maxipime 2 Gm/Ns 50 Ml IVPB Infused Q12H TERRIE Infusion Vancomycin HCl 1,500 mg in 500 mls @ 250 mls/hr 06/18/24 10:00 06/19/24 11:15 Vancomycin 1,500 Mg/Ns 500 Ml IVPB Infused Q12H TERRIE Infusion Lisinopril 40 mg 06/18/24 09:00 06/19/24 08:44 Lisinopril 20 Mg Tablet PO 40 mg DAILY TERRIE Administration Melatonin 3 mg 06/17/24 21:00 06/18/24 21:05 Melatonin 3 Mg Tablet PO 3 mg HS TERRIE Administration Methocarbamol 500 mg 06/17/24 17:00 06/19/24 08:43 Methocarbamol 500 Mg Tablet PO 500 mg QID TERRIE Administration Metoprolol Succinate 200 mg 06/17/24 21:00 06/18/24 21:05 Metoprolol Succinate Ext Rel 100 Mg Tabcr PO 200 mg HS TERRIE Administration Metronidazole 500 mg 06/17/24 16:15 06/19/24 05:27 Metronidazole 500 Mg Tablet PO 500 mg Q8HR TERRIE Administration Ondansetron HCl 4 mg 06/16/24 21:38 Ondansetron Inj 4 Mg/2 Ml Vial IV PUSH Q4H PRN Nausea Oxycodone HCl 5 mg 06/17/24 15:28 06/19/24 05:27 Oxycodone Hcl (*Crx) 5 Mg Tab Ir PO 5 mg Q8H PRN Administration Pain Tramadol HCl 100 mg 06/18/24 13:09 06/19/24 08:44 Tramadol Hcl (*Crx) 50 Mg Tablet PO 07/02/24 13:08 100 mg Q6H PRN Administration PAIN 1-6 Radiology Results: ITS Impressions Foot X-Ray 06/16/24 19:28 IMPRESSION: Findings concerning for osteomyelitis involving the inferior aspect of the distal left fifth metatarsal. Extensive cutaneous defects/ulcerations and likely cellulitis. Tibia/Fibula X-Ray 06/16/24 19:28 IMPRESSION: Findings concerning for osteomyelitis involving the inferior aspect of the distal left fifth metatarsal. Extensive cutaneous defects/ulcerations and likely cellulitis. Head CT 06/16/24 19:59 IMPRESSION: No acute intracranial process. Chest CTA 06/16/24 20:12 IMPRESSION: No acute thoracic process detected. Aorta w/Runoff CTA 06/16/24 20:26 IMPRESSION: Mild esophagitis/gastritis. Possible cirrhosis. Cystitis versus chronic bladder wall thickening from outlet obstruction. 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 Vertebral body endplate deformities resulting in moderate and mild degrees of height loss at L1 and L3 respectively, may be chronic or acute, correlate for p ain/tenderness or history of recent trauma. Extensive atherosclerotic disease is seen generally, with extensive stenting of the bilateral lower extremity arteries. There is multivessel flow below the level of the ankle in both lower extremities. Findings concerning for osteomyelitis involving the inferior aspect of the distal fifth metatarsal. Extensive left foot soft tissue ulcerations with overlying edema or cellulitis. Diffuse edema/cellulitis of the right foot. Labs Labs: Laboratory Results - last 24 hr 06/19/24 06:24 Creatinine 0.70 Estim Creat Clear Calc 106 Estimated GFR > 60
[2024-06-19] MEDS: ATORVASTATIN 40 MG TABLET PO (20:44)
[2024-06-19] MEDS: MELATONIN 3 MG TABLET PO (20:44)
[2024-06-19] MEDS: METOPROLOL SUCCINATE EXT REL 100 MG TABCR 200 MG PO (20:44)
[2024-06-19 21:55] LABS: Vancomycin Trough 16.9 ug/mL (10.0-20.0)
[2024-06-20] VITALS (10 sets, daily range): BP systolic 113–124; BP diastolic 64–74; PULSE 62–86; RESP 16–18; TEMP 36.7–37.1; O2SAT 98–100
[2024-06-20] MEDS: metroNIDAZOLE 500 MG TABLET PO ×3 (06:00→21:38)
[2024-06-20] MEDS: traMADol HCL (*CRX) 50 MG TABLET 100 MG PO ×3 (06:00→21:37)
[2024-06-20 06:41] LABS: Basophils Absolute Auto 0.1 K/mm3 (0.0-0.1); Basophils Percent Auto 0.4 % (0.2-1.2); Eosinophils Absolute Auto 0.2 K/mm3 (0-0.3); Eosinophils Percent Auto 1.5 % (0-4.4); Hematocrit 23.7 % (42.0-52.0); Hemoglobin 7.3 g/dL (14.0-18.0); Immature Granulocyte Absolute 0.71 K/mm3 (0.00-0.031); Immature Granulocyte Percent A 4.4 % (0-0.5); Lymphocytes Absolute Auto 1.85 K/mm3 (0.9-3.2); Lymphocytes Percent Auto 11.4 % (18.3-44.2); Mean Corpuscular HGB Conc 30.8 g/dl (32-36); Mean Corpuscular Hemoglobin 26.9 pg (26-34); Mean Corpuscular Volume 87.5 fl (80-100); Mean Platelet Volume 8.4 fl (7.4-10.4); Monocytes Absolute Auto 1.3 K/mm3 (0.1-0.6); Monocytes Percent Auto 8.2 % (2.6-8.5); Neutrophils Percent Auto 74.1 % (45.5-73.1); Platelet Count Result 417 k/mm3 (150-375); Red Blood Count 2.71 M/mm3 (4.6-6.20); Red Cell Distribution Width 17.2 % (11.5-14.5); White Blood Count 16.2 K/mm3 (4.5-10.0)
[2024-06-20 06:57] LABS: Lactic Acid Reflex 0.7 mmol/L (0.7-2.0)
[2024-06-20 06:58] LABS: Alanine Aminotransferase 31 U/L (6-50); Albumin Level 3.1 g/dL (3.5-5.1); Alkaline Phosphatase 188 U/L (38-126); Anion Gap 7 mmol/L (4-12); Aspartate Amino Transferase 40 U/L (17-59); Bilirubin,Total 0.5 mg/dL (0.2-1.3); Blood Urea Nitrogen 13 mg/dL (9-20); Calcium 8.6 mg/dL (8.4-10.2); Carbon Dioxide 23 mmol/L (22-30); Chloride 101 mmol/L (98-107); Estimated CRCL calculation 94 ml/min; Estimated Glomerular Filt Rate > 60; Glucose 117 mg/dL (65-110); Magnesium 1.8 mg/dL (1.6-2.3); Potassium 4.3 mmol/L (3.4-5.0); Sodium 131 mmol/L (137-145)
[2024-06-20] MEDS: CLOPIDOGREL BISULFATE 75 MG TABLET PO (08:50)
[2024-06-20] MEDS: CEFEPIME 2 GM/NS 50 ML 2 GM/50 ML BAG IVPB ×2 (08:50→21:43)
[2024-06-20] MEDS: ASPIRIN 81 MG ENTERIC TABLET PO (08:50)
[2024-06-20] MEDS: methocarbamoL 500 MG TABLET PO ×4 (08:50→21:37)
[2024-06-20] MEDS: amLODIPine BESYLATE 2.5 MG TABLET PO (08:50)
[2024-06-20] MEDS: GABAPENTIN 300 MG CAPSULE PO ×3 (08:50→17:25)
[2024-06-20] MEDS: lisinopriL 20 MG TABLET 40 MG PO (08:50)
[2024-06-20] MEDS: oxyCODONE HCL (*CRX) 5 MG TAB IR PO ×2 (08:51→17:26)
[2024-06-20] MEDS: VANCOMYCIN 1,500 MG/NS 500 ML 1,500 MG/500 ML BAG 250 MG IVPB ×2 (09:00→21:43)
--- NOTE | 2024-06-20 10:24 | PC.NURSE ---
Call received from [facility]. Update given, no beds at this time.
--- NOTE | 2024-06-20 13:56 | PM.IMPN ---
Progress Note: A&P Assessment and Plan (1) Foot osteomyelitis, left: Code(s): M86.9 - Osteomyelitis, unspecified Status: Acute (2) PAD (peripheral artery disease): Code(s): I73.9 - Peripheral vascular disease, unspecified Status: Acute (3) Peripheral neuropathy: Qualifiers: Peripheral neuropathy type: polyneuropathy associated with underlying disease Qualified Code(s): G63 - Polyneuropathy in diseases classified elsewhere Code(s): G62.9 - Polyneuropathy, unspecified Status: Acute (4) Alcoholism: Code(s): F10.20 - Alcohol dependence, uncomplicated Status: Acute (5) Infarction of right basal ganglia: Code(s): I63.9 - Cerebral infarction, unspecified Status: Acute (6) Infarction of left basal ganglia: Code(s): I63.9 - Cerebral infarction, unspecified Status: Acute (7) Tobacco abuse: Code(s): Z72.0 - Tobacco use Status: Acute (8) Hypertension: Code(s): I10 - Essential (primary) hypertension Status: Acute (9) Ulcer of left foot: Code(s): L97.529 - Non-pressure chronic ulcer of other part of left foot with unspecified severity Status: Acute Plan Osteomyelitis/PVD Currently on vancomycin and cefepime Started Metronidazole X-ray left foot; Findings concerning for osteomyelitis involving the inferior aspect of the distal left fifth metatarsal. Extensive cutaneous defects/ulcerations and likely cellulitis. Extensive history of PVD (refer to HPI) Surgery offers BKA(patient denies BKA and wanted to transfer to [place]) Pain control Wound culture Local wound care, dressing change as per surgery Non-weight bearing on LLE PT eval for crutch use and ambulation Patient is on aspirin and Plavix Disposition Discussed with Dr.Vipul Elliott office He will be the consulting physician Awaiting Transfer to [place] Subjective Date/time seen: 06/20/24 13:56 Interval history: Patient comfortable at bedside however he continues to decline BKA and currently awaiting [facility] transfer per his wishes Dr Lees already discussed with Dr Javon Elliott's office and it was recommended that he transfer patient to [facility] and patient will be consulted on by Dr Morgan. Currently awaiting transfer to [facility]. Needs extensive record review(pending review) : -Refer to document 01/08/2024 for full review(10/2022 right femur fracture and underwent right femur IMN and Right iliofemoral endarterectomy), left iliofemoral endarterectomy possibly on November 09, 2023. -Had been hospitalized at [place] 11/08-11/10 for angioplasty of the left leg with stent in right external iliac artery. awaiting transfer to [facility] Review of Systems Review of Systems: ROS unobtainable: Yes other ( patient does not know why his in the emergency room) Exam Narrative: laying in a stretcher Const: General: comfortable, no acute distress, well developed, alert, awake, ill appearing chronically and average body habitus Nutritional Appearance: average body habitus Orientation/consciousness: patient oriented x3 Other: looks older than stated age HENMT: Head: normal to inspection, normocephalic and atraumatic Ears: hearing grossly normal bilaterally Face/Nose/Sinus: normal facial exam Face and sinus: normal facial exam Eyes: General: appearance normal, both eyes and all related structures Pupils: Equal, round and reactive pupils present EOM: EOMs intact bilaterally Neck: Neck: full ROM, no lymphadenopathy and no JVD Thyroid: thyroid normal Lymphatic: no lymphadenopathy noted Resp: Effort & Inspection: normal respiratory effort and able to speak in complete sentences Auscultation: clear to auscultation bilaterally Cardio: Jugular venous distension: no JVD Rate: regular rate Rhythm: regular rhythm Heart sounds: S1 normal heart sound present and S2 normal heart sound present : General: Yes deferred Skin: General skin exam: wounds noted Rashes: no rashes Wounds: wounds noted left foot margins with edges rolled under and indurated, without odor and open Neuro: General: patient oriented x3, CN's II-XI intact bilaterally and Unable to assess gait Cranial nerves: Yes CN's II-XII intact bilaterally and Yes Equal, round and reactive pupils present Cognition (Neuro): normal cognition Speech: normal speech Gait exam (Neuro): Unable to assess gait Motor exam (neuro): 5/5 motor strength present throughout Extrem: General: normal to inspection, full ROM, no joint enlargement and no pedal edema Objective Data Vital Signs Vital Signs: Vital Signs - 24 hr 06/19/24 16:36 06/19/24 16:00 06/19/24 21:36 Temperature 98.8 F 98.6 F Pulse Rate 69 70 71 Respiratory Rate 18 18 Blood Pressure 106/58 L 112/60 Pulse Oximetry 99 99 Oxygen Delivery 06/19/24 20:00 06/20/24 04:07 06/19/24 20:00 Temperature 98.1 F Pulse Rate 64 71 Respiratory Rate 16 Blood Pressure 113/64 Pulse Oximetry 98 Oxygen Delivery Room Air 06/20/24 00:00 06/20/24 04:00 06/20/24 08:00 Temperature Pulse Rate 68 65 Respiratory Rate Blood Pressure Pulse Oximetry Oxygen Delivery Room Air Intake/Output Intake/Output: Intake & Output 06/17/24 06/18/24 06/19/24 06/20/24 23:59 23:59 23:59 23:59 Intake Total 1380 3400 3780 1290 Output Total 2900 2150 3000 1200 Balance -1520 1250 780 90 Meds/Results Medications: Active Medications Generic Name Dose Route Start Last Admin Trade Name Freq PRN Reason Stop Dose Admin Acetaminophen 650 mg 06/18/24 08:56 Acetaminophen 325 Mg Tablet BY MOUTH Q6H PRN Mild Pain (1-3) or Fever Amlodipine Besylate 2.5 mg 06/18/24 09:00 06/20/24 08:50 Amlodipine Besylate 2.5 Mg Tablet PO 2.5 mg DAILY TERRIE Administration Aspirin 81 mg 06/18/24 09:00 06/20/24 08:50 Aspirin 81 Mg Enteric Tablet PO 81 mg DAILY TERRIE Administration Atorvastatin Calcium 40 mg 06/17/24 21:00 06/19/24 20:44 Atorvastatin 40 Mg Tablet PO 40 mg QHS TERRIE Administration Clopidogrel Bisulfate 75 mg 06/18/24 09:00 06/20/24 08:50 Clopidogrel Bisulfate 75 Mg Tablet PO 75 mg DAILY TERRIE Administration Gabapentin 300 mg 06/17/24 17:00 06/20/24 13:30 Gabapentin 300 Mg Capsule PO 300 mg TID TERRIE Administration Cefepime HCl 2 gm in 50 mls @ 100 mls/hr 06/17/24 08:00 06/20/24 08:50 Maxipime 2 Gm/Ns 50 Ml IVPB 100 mls/hr Q12H TERRIE Administration Vancomycin HCl 1,500 mg in 500 mls @ 250 mls/hr 06/18/24 10:00 06/20/24 09:00 Vancomycin 1,500 Mg/Ns 500 Ml IVPB 250 mls/hr Q12H TERRIE Administration Lisinopril 40 mg 06/18/24 09:00 06/20/24 08:50 Lisinopril 20 Mg Tablet PO 40 mg DAILY TERRIE Administration Melatonin 3 mg 06/17/24 21:00 06/19/24 20:44 Melatonin 3 Mg Tablet PO 3 mg HS TERRIE Administration Methocarbamol 500 mg 06/17/24 17:00 06/20/24 13:29 Methocarbamol 500 Mg Tablet PO 500 mg QID TERRIE Administration Metoprolol Succinate 200 mg 06/17/24 21:00 06/19/24 20:44 Metoprolol Succinate Ext Rel 100 Mg Tabcr PO 200 mg HS TERRIE Administration Metronidazole 500 mg 06/17/24 16:15 06/20/24 13:29 Metronidazole 500 Mg Tablet PO 500 mg Q8HR TERRIE Administration Ondansetron HCl 4 mg 06/16/24 21:38 Ondansetron Inj 4 Mg/2 Ml Vial IV PUSH Q4H PRN Nausea Oxycodone HCl 5 mg 06/17/24 15:28 06/20/24 08:51 Oxycodone Hcl (*Crx) 5 Mg Tab Ir PO 5 mg Q8H PRN Administration Pain Tramadol HCl 100 mg 06/18/24 13:09 06/20/24 13:30 Tramadol Hcl (*Crx) 50 Mg Tablet PO 07/02/24 13:08 100 mg Q6H PRN Administration PAIN 1-6 Radiology Results: ITS Impressions Foot X-Ray 06/16/24 19:28 IMPRESSION: Findings concerning for osteomyelitis involving the inferior aspect of the distal left fifth metatarsal. Extensive cutaneous defects/ulcerations and likely cellulitis. Tibia/Fibula X-Ray 06/16/24 19:28 IMPRESSION: Findings concerning for osteomyelitis involving the inferior aspect of the distal left fifth metatarsal. Extensive cutaneous defects/ulcerations and likely cellulitis. Head CT 06/16/24 19:59 IMPRESSION: No acute intracranial process. Chest CTA 06/16/24 20:12 IMPRESSION: No acute thoracic process detected. Aorta w/Runoff CTA 06/16/24 20:26 IMPRESSION: Mild esophagitis/gastritis. Possible cirrhosis. Cystitis versus chronic bladder wall thickening from outlet obstruction. 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 Vertebral body endplate deformities resulting in moderate and mild degrees of height loss at L1 and L3 respectively, may be chronic or acute, correlate for pain/tenderness or history of recent trauma. Extensive atherosclerotic disease is seen generally, with extensive stenting of the bilateral lower extremity arteries. There is multivessel flow below the level of the ankle in both lower extremities. Findings concerning for osteomyelitis involving the inferior aspect of the distal fifth metatarsal. Extensive left foot soft tissue ulcerations with overlying edema or cellulitis. Diffuse edema/cellulitis of the right foot. Labs Labs: Laboratory Results - last 24 hr 06/19/24 06/20/24 21:28 06:34 WBC 16.2 H RBC 2.71 L Hgb 7.3 L Hct 23.7 L MCV 87.5 MCH 26.9 D MCHC 30.8 L RDW 17.2 H Plt Count 417 H MPV 8.4 Immature Gran % (Auto) 4.4 H Neut % (Auto) 74.1 H Lymph % (Auto) 11.4 L [place] % (Auto) 8.2 Eos % (Auto) 1.5 Baso % (Auto) 0.4 Lymph # (Auto) 1.85 [place] # (Auto) 1.3 H Eos # (Auto) 0.2 Baso # (Auto) 0.1 Abs Immat Gran (auto) 0.71 H Absolute Neuts (auto) 12.0 H Absolute Nucleated RBC 0.000 Nucleated RBC % 0.0 Sodium 131 L Potassium 4.3 Chloride 101 Carbon Dioxide 23 Anion Gap 7 BUN 13 Creatinine 0.80 Estim Creat Clear Calc 94 Estimated GFR > 60 Glucose 117 H Lactic Acid 0.7 Calcium 8.6 Magnesium 1.8 Total Bilirubin 0.5 AST 40 ALT 31 Alkaline Phosphatase 188 H Total Protein 8.0 Albumin 3.1 L Vancomycin Trough 16.9
--- NOTE | 2024-06-20 21:30 | PC.NURSE ---
[facility] transfer center updated. No beds available.
[2024-06-20] MEDS: ATORVASTATIN 40 MG TABLET PO (21:37)
[2024-06-20] MEDS: METOPROLOL SUCCINATE EXT REL 100 MG TABCR 200 MG PO (21:37)
[2024-06-20] MEDS: MELATONIN 3 MG TABLET PO (21:43)
[2024-06-21] VITALS (10 sets, daily range): BP systolic 108–118; BP diastolic 56–70; PULSE 62–76; RESP 16–20; TEMP 36.4–36.8; O2SAT 97–100
[2024-06-21] MEDS: oxyCODONE HCL (*CRX) 5 MG TAB IR PO ×3 (01:30→18:23)
[2024-06-21] MEDS: metroNIDAZOLE 500 MG TABLET PO ×2 (05:33→15:17)
[2024-06-21 06:08] LABS: Basophils Absolute Auto 0.1 K/mm3 (0.0-0.1); Basophils Percent Auto 0.5 % (0.2-1.2); Eosinophils Absolute Auto 0.3 K/mm3 (0-0.3); Eosinophils Percent Auto 1.8 % (0-4.4); Hemoglobin 7.5 g/dL (14.0-18.0); Immature Granulocyte Absolute 0.72 K/mm3 (0.00-0.031); Immature Granulocyte Percent A 4.6 % (0-0.5); Lymphocytes Absolute Auto 2.54 K/mm3 (0.9-3.2); Lymphocytes Percent Auto 16.4 % (18.3-44.2); Mean Corpuscular HGB Conc 31.3 g/dl (32-36); Mean Corpuscular Hemoglobin 27.7 pg (26-34); Mean Corpuscular Volume 88.6 fl (80-100); Mean Platelet Volume 8.9 fl (7.4-10.4); Monocytes Absolute Auto 1.3 K/mm3 (0.1-0.6); Monocytes Percent Auto 8.2 % (2.6-8.5); Neutrophils Absolute Auto 10.6 K/mm3 (1.3-6.7); Neutrophils Percent Auto 68.5 % (45.5-73.1); Platelet Count Result 471 k/mm3 (150-375); Red Blood Count 2.71 M/mm3 (4.6-6.20); Red Cell Distribution Width 17.1 % (11.5-14.5); White Blood Count 15.5 K/mm3 (4.5-10.0)
[2024-06-21 06:11] LABS: Alanine Aminotransferase 24 U/L (6-50); Albumin Level 3.2 g/dL (3.5-5.1); Alkaline Phosphatase 163 U/L (38-126); Anion Gap 6 mmol/L (4-12); Aspartate Amino Transferase 28 U/L (17-59); Bilirubin,Total 0.5 mg/dL (0.2-1.3); Blood Urea Nitrogen 12 mg/dL (9-20); Calcium 8.6 mg/dL (8.4-10.2); Carbon Dioxide 22 mmol/L (22-30); Chloride 104 mmol/L (98-107); Estimated CRCL calculation 106 ml/min; Estimated Glomerular Filt Rate > 60; Glucose 109 mg/dL (65-110); Magnesium 1.7 mg/dL (1.6-2.3); Potassium 4.4 mmol/L (3.4-5.0); Sodium 132 mmol/L (137-145)
[2024-06-21] MEDS: GABAPENTIN 300 MG CAPSULE PO ×3 (09:17→18:21)
[2024-06-21] MEDS: lisinopriL 20 MG TABLET 40 MG PO (09:18)
[2024-06-21] MEDS: ASPIRIN 81 MG ENTERIC TABLET PO (09:18)
[2024-06-21] MEDS: CEFEPIME 2 GM/NS 50 ML 2 GM/50 ML BAG IVPB ×2 (09:18→20:53)
[2024-06-21] MEDS: VANCOMYCIN 1,500 MG/NS 500 ML 1,500 MG/500 ML BAG 250 MG IVPB (09:18)
[2024-06-21] MEDS: methocarbamoL 500 MG TABLET PO ×4 (09:18→20:48)
[2024-06-21] MEDS: amLODIPine BESYLATE 2.5 MG TABLET PO (09:18)
[2024-06-21] MEDS: CLOPIDOGREL BISULFATE 75 MG TABLET PO (09:18)
--- NOTE | 2024-06-21 10:44 | PCNFU ---
Nutrition Follow-Up Complete: Increased protein energy needs related to vascular wounds as evidenced by reports of poor appetite, multiple vascular wounds Goal: Adequate PO intake at least 75% meals and supplements Patient is progressing towards goal. We will continue current goal. Pt current nutrition is heart healthy with Ensure compact BID. Last recorded weight is 86.9 kg, no new weight to report. Bowel Motility: No BM reported. Labs Reviewed: Na 132, Alb 3.2 Meds Noted:Vancomycin, Flagyl Skin: left foot ulcers-vascular Additional Notes: Patient remains on a heart healthy diet with Ensure Compact BID. Intake's have been good > 50% of meals. Diet supplements are providing an additional 220 kcal and 9 gm protein. Agree with diet orders. Monitor intakes, weights, labs, skin, supplement tolerance, plan of care Follow up in 5 days
--- NOTE | 2024-06-21 13:27 | PM.IMPN ---
Progress Note: A&P Assessment and Plan (1) Foot osteomyelitis, left: Code(s): M86.9 - Osteomyelitis, unspecified Status: Acute (2) PAD (peripheral artery disease): Code(s): I73.9 - Peripheral vascular disease, unspecified Status: Acute (3) Peripheral neuropathy: Qualifiers: Peripheral neuropathy type: polyneuropathy associated with underlying disease Qualified Code(s): G63 - Polyneuropathy in diseases classified elsewhere Code(s): G62.9 - Polyneuropathy, unspecified Status: Acute (4) Alcoholism: Code(s): F10.20 - Alcohol dependence, uncomplicated Status: Acute (5) Infarction of right basal ganglia: Code(s): I63.9 - Cerebral infarction, unspecified Status: Acute (6) Infarction of left basal ganglia: Code(s): I63.9 - Cerebral infarction, unspecified Status: Acute (7) Tobacco abuse: Code(s): Z72.0 - Tobacco use Status: Acute (8) Hypertension: Code(s): I10 - Essential (primary) hypertension Status: Acute (9) Ulcer of left foot: Code(s): L97.529 - Non-pressure chronic ulcer of other part of left foot with unspecified severity Status: Acute Plan Osteomyelitis/PVD Currently on vancomycin and cefepime Started Metronidazole X-ray left foot; Findings concerning for osteomyelitis involving the inferior aspect of the distal left fifth metatarsal. Extensive cutaneous defects/ulcerations and likely cellulitis. Extensive history of PVD (refer to HPI) Surgery offers BKA(patient denies BKA and wanted to transfer to [place]) Pain control Wound culture Local wound care, dressing change as per surgery Non-weight bearing on LLE PT eval for crutch use and ambulation Patient is on aspirin and Plavix Disposition Discussed with Dr.Vipul Elliott office He will be the consulting physician Awaiting Transfer to [place] Subjective Date/time seen: 06/21/24 13:27 Interval history: Patient comfortable at bedside awaiting transfer to [facility] Review of Systems Review of Systems: ROS unobtainable: Yes other ( patient does not know why his in the emergency room) Exam Narrative: laying in a stretcher Const: General: comfortable, no acute distress, well developed, alert, awake, ill appearing chronically and average body habitus Nutritional Appearance: average body habitus Orientation/consciousness: patient oriented x3 Other: looks older than stated age HENMT: Head: normal to inspection, normocephalic and atraumatic Ears: hearing grossly normal bilaterally Face/Nose/Sinus: normal facial exam Face and sinus: normal facial exam Eyes: General: appearance normal, both eyes and all related structures Pupils: Equal, round and reactive pupils present EOM: EOMs intact bilaterally Neck: Neck: full ROM, no lymphadenopathy and no JVD Thyroid: thyroid normal Lymphatic: no lymphadenopathy noted Resp: Effort & Inspection: normal respiratory effort and able to speak in complete sentences Auscultation: clear to auscultation bilaterally Cardio: Jugular venous distension: no JVD Rate: regular rate Rhythm: regular rhythm Heart sounds: S1 normal heart sound present and S2 normal heart sound present : General: Yes deferred Skin: General skin exam: wounds noted Rashes: no rashes Wounds: wounds noted left foot margins with edges rolled under and indurated, without odor and open Neuro: General: patient oriented x3, CN's II-XI intact bilaterally and Unable to assess gait Cranial nerves: Yes CN's II-XII intact bilaterally and Yes Equal, round and reactive pupils present Cognition (Neuro): normal cognition Speech: normal speech Gait exam (Neuro): Unable to assess gait Motor exam (neuro): 5/5 motor strength present throughout Extrem: General: normal to inspection, full ROM, no joint enlargement and no pedal edema Objective Data Vital Signs Vital Signs: Vital Signs - 24 hr 06/20/24 13:57 06/20/24 16:00 06/20/24 21:28 Temperature 98.8 F 98.8 F Pulse Rate 66 63 65 Respiratory Rate 18 18 Blood Pressure 116/74 124/70 Pulse Oximetry 100 99 Oxygen Delivery 06/20/24 21:37 06/20/24 20:00 06/20/24 20:00 Temperature Pulse Rate 86 66 Respiratory Rate Blood Pressure Pulse Oximetry Oxygen Delivery Room Air 06/21/24 00:00 06/21/24 04:00 06/21/24 04:46 Temperature 98.2 F Pulse Rate 64 62 73 Respiratory Rate 16 Blood Pressure 118/68 Pulse Oximetry 100 Oxygen Delivery 06/21/24 08:00 Temperature Pulse Rate Respiratory Rate Blood Pressure Pulse Oximetry Oxygen Delivery Room Air Intake/Output Intake/Output: Intake & Output 11/1206/19/24 06/20/24 06/21/24 23:59 23:59 23:59 23:59 Intake Total 3400 3780 2870 1852 Output Total 2150 3000 3000 2400 Balance 1250 881 -285 -204 Meds/Results Medications: Active Medications Generic Name Dose Route Start Last Admin Trade Name Freq PRN Reason Stop Dose Admin Acetaminophen 650 mg 06/18/24 08:56 Acetaminophen 325 Mg Tablet BY MOUTH Q6H PRN Mild Pain (1-3) or Fever Amlodipine Besylate 2.5 mg 06/18/24 09:00 06/21/24 09:18 Amlodipine Besylate 2.5 Mg Tablet PO 2.5 mg DAILY TERRIE Administration Aspirin 81 mg 06/18/24 09:00 06/21/24 09:18 Aspirin 81 Mg Enteric Tablet PO 81 mg DAILY TERRIE Administration Atorvastatin Calcium 40 mg 06/17/24 21:00 06/20/24 21:37 Atorvastatin 40 Mg Tablet PO 40 mg QHS TERRIE Administration Clopidogrel Bisulfate 75 mg 06/18/24 09:00 06/21/24 09:18 Clopidogrel Bisulfate 75 Mg Tablet PO 75 mg DAILY TERRIE Administration Gabapentin 300 mg 06/17/24 17:00 06/21/24 12:13 Gabapentin 300 Mg Capsule PO 300 mg TID TERRIE Administration Cefepime HCl 2 gm in 50 mls @ 100 mls/hr 06/17/24 08:00 06/21/24 09:18 Maxipime 2 Gm/Ns 50 Ml IVPB 100 mls/hr Q12H TERRIE Administration Vancomycin HCl 1,500 mg in 500 mls @ 250 mls/hr 06/18/24 10:00 06/21/24 09:18 Vancomycin 1,500 Mg/Ns 500 Ml IVPB 250 mls/hr Q12H TERRIE Administration Lisinopril 40 mg 06/18/24 09:00 06/21/24 09:18 Lisinopril 20 Mg Tablet PO 40 mg DAILY TERRIE Administration Melatonin 3 mg 06/17/24 21:00 06/20/24 21:43 Melatonin 3 Mg Tablet PO 3 mg HS TERRIE Administration Methocarbamol 500 mg 06/17/24 17:00 06/21/24 12:13 Methocarbamol 500 Mg Tablet PO 500 mg QID TERRIE Administration Metoprolol Succinate 200 mg 06/17/24 21:00 06/20/24 21:37 Metoprolol Succinate Ext Rel 100 Mg Tabcr PO 200 mg HS TERRIE Administration Metronidazole 500 mg 06/17/24 16:15 06/21/24 05:33 Metronidazole 500 Mg Tablet PO 500 mg Q8HR TERRIE Administration Ondansetron HCl 4 mg 06/16/24 21:38 Ondansetron Inj 4 Mg/2 Ml Vial IV PUSH Q4H PRN Nausea Oxycodone HCl 5 mg 06/17/24 15:28 06/21/24 09:28 Oxycodone Hcl (*Crx) 5 Mg Tab Ir PO 5 mg Q8H PRN Administration Pain Tramadol HCl 100 mg 06/18/24 13:09 06/20/24 21:37 Tramadol Hcl (*Crx) 50 Mg Tablet PO 07/02/24 13:08 100 mg Q6H PRN Administration PAIN 1-6 Radiology Results: ITS Impressions Foot X-Ray 06/16/24 19:28 IMPRESSION: Findings concerning for osteomyelitis involving the inferior aspect of the distal left fifth metatarsal. Extensive cutaneous defects/ulcerations and likely cellulitis. Tibia/Fibula X-Ray 06/16/24 19:28 IMPRESSION: Findings concerning for osteomyelitis involving the inferior aspect of the distal left fifth metatarsal. Extensive cutaneous defects/ulcerations and likely cellulitis. Head CT 06/16/24 19:59 IMPRESSION: No acute intracranial process. Chest CTA 06/16/24 20:12 IMPRESSION: No acute thoracic process detected. Aorta w/Runoff CTA 06/16/24 20:26 IMPRESSION: Mild esophagitis/gastritis. Possible cirrhosis. Cystitis versus chronic bladder wall thickening from outlet obstruction. 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 Vertebral body endplate deformities resulting in moderate and mild degrees of height loss at L1 and L3 respectively, may be chronic or acute, correlate for pain/tenderness or history of recent trauma. Extensive atherosclerotic disease is seen generally, with extensive stenting of the bilateral lower extremity arteries. There is multivessel flow below the level of the ankle in both lower extremities. Findings concerning for osteomyelitis involving the inferior aspect of the distal fifth metatarsal. Extensive left foot soft tissue ulcerations with overlying edema or cellulitis. Diffuse edema/cellulitis of the right foot. Labs Labs: Laboratory Results - last 24 hr 06/21/24 05:37 WBC 15.5 H RBC 2.71 L Hgb 7.5 L Hct 24.0 L MCV 88.6 MCH 27.7 MCHC 31.3 L RDW 17.1 H Plt Count 471 H MPV 8.9 Immature Gran % (Auto) 4.6 H Neut % (Auto) 68.5 Lymph % (Auto) 16.4 L [place] % (Auto) 8.2 Eos % (Auto) 1.8 Baso % (Auto) 0.5 Lymph # (Auto) 2.54 [place] # (Auto) 1.3 H Eos # (Auto) 0.3 Baso # (Auto) 0.1 Abs Immat Gran (auto) 0.72 H Absolute Neuts (auto) 10.6 H Absolute Nucleated RBC 0.000 Nucleated RBC % 0.0 Sodium 132 L Potassium 4.4 Chloride 104 Carbon Dioxide 22 Anion Gap 6 BUN 12 Creatinine 0.70 Estim Creat Clear Calc 106 Estimated GFR > 60 Glucose 109 Calcium 8.6 Magnesium 1.7 Total Bilirubin 0.5 AST 28 ALT 24 Alkaline Phosphatase 163 H Total Protein 8.0 Albumin 3.2 L
[2024-06-21] MEDS: traMADol HCL (*CRX) 50 MG TABLET 100 MG PO (15:17)
[2024-06-21 16:00] LABS: Iron 33 ug/dL (49-181)
[2024-06-21 16:09] LABS: Percent Iron Saturation 18 % (20-50)
[2024-06-21] MEDS: METOPROLOL SUCCINATE EXT REL 100 MG TABCR 200 MG PO (20:49)
[2024-06-21] MEDS: MELATONIN 3 MG TABLET PO (20:49)
[2024-06-21] MEDS: ATORVASTATIN 40 MG TABLET PO (20:49)
--- NOTE | 2024-06-22 12:35 | P.TS_ITS ---
Transfer Discharge Sum: Prov Provider Date of admission: 06/17/24 08:41 Primary care physician: Kyle Ndiaye MD Admitting clinician: Kj Javed MD Consults: 06/16/24 Consult to Physician Routine Comment: Consulting Provider: uRthy Mendez Reason for consultation: osteomyelitis Has provider been notified: Yes DS: Admitting Diagnosis Discharge Date 06/21/24 Admitting Diagnosis Altered mental status DS: Discharge Diagnosis Discharge Diagnosis (1) Foot osteomyelitis, left: Code(s): M86.9 - Osteomyelitis, unspecified Status: Acute Transfer Discharge Sum: Med Medications Active and Home Medications: Home Medications multivitamin-iron 9 mg-folic acid 400 mcg-calcium and minerals tablet (Thera M Plus (ferrous fumarate)) 1 tablet PO QAM #30 tabs 01/05/21 [Rx Confirmed 06/16/24] aspirin 81 mg tablet,delayed release (Adult Aspirin Regimen) 81 mg PO DAILY #100 tabs 12/13/23 [Rx Confirmed 06/16/24] trazodone 100 mg tablet 100 mg PO QHS #90 tabs 01/03/24 [Rx Confirmed 06/16/24] amlodipine 2.5 mg tablet 2.5 mg PO DAILY 01/30/24 [History Confirmed 06/16/24] tramadol 100 mg tablet 100 mg PO QID PRN pain #60 tabs 03/19/24 [Rx Confirmed 06/16/24] atorvastatin 40 mg tablet 40 mg PO QHS #30 tabs 03/31/24 [Rx Confirmed 06/16/24] clopidogrel 75 mg tablet 75 mg PO DAILY #30 tabs 03/31/24 [Rx Confirmed 06/16/24] acetaminophen 325 mg tablet 1,000 mg PO Q6H PRN Mild Pain (1-3) Or Fever 06/16/24 [History Confirmed 06/16/24] folic acid 400 mcg tablet 0.4 mg PO DAILY 06/16/24 [History Confirmed 06/16/24] gabapentin 800 mg tablet 300 mg PO TID 06/16/24 [History Confirmed 06/16/24] lidocaine 4 % topical cream 1 applic topical DAILY 06/16/24 [History Confirmed 06/16/24] lisinopril 40 mg tablet 40 mg PO DAILY 06/16/24 [History Confirmed 06/16/24] melatonin 3 mg tablet 3 mg PO HS 06/16/24 [History Confirmed 06/16/24] methocarbamol 500 mg tablet 500 mg PO QID muscle spasm 06/16/24 [History Confirmed 06/16/24] metoprolol succinate 200 mg tablet,extended release 24 hr 200 mg PO HS 06/16/24 [History Confirmed 06/16/24] naloxone 4 mg/actuation nasal spray 4 mg intranasal Q3M PRN Opioid Reversal 06/16/24 [History Confirmed 06/16/24] oxycodone 5 mg tablet 5 mg PO Q8H PRN Pain 06/16/24 [History Confirmed 06/16/24] Transfer Discharge Sum: Hosp Hospital Course Hospital course: This is a 59-year-old male with past medical history significant for alcohol dependence, hypertension, patient is a retirement resident who was unresponsive patient received CPR and became awake was brought to the emergency room for evaluation. here patient was found to have necrotic ulcer of the dorsum of left foot. Patient has no knowledge of when this ulcer started does not know why he is in the emergency room however he knows that he is at [facility] , knows that Thanksgiving is daily next holiday. Patient was ruled out for acute pulmonary embolism with a negative CT angiogram of the chest. EXAMINATION: CTA abd aorta runoff DATE: 06/16/2024 19:52 INDICATION: left foot necrotic wound, post code TECHNIQUE: Computed tomography (CT) of the abdomen and pelvis was performed with 100 mL Omnipaque-350 intravenous contrast. Automated exposure control and iterative reconstruction technique were employed. The dose-length product was 1842.63 mGy-cm. COMPARISON: None. FINDINGS: Lower thorax: Unremarkable Liver: Nodular liver border. Biliary/Gallbladder: Cholelithiasis. No bile duct dilation. Pancreas: No mass or duct dilation. Spleen: Normal. Adrenals:No mass. Kidneys: No suspicious mass, obstructing stone, or hydronephrosis. GI tract: Mild distal esophageal and gastric wall edema No small or large bowel dilation. Appendix not confidently visualized. Diverticulosis without diverticulitis. Mesentery/Peritoneum: No ascites, mass, or free air. Retroperitoneum: No mass. Extensive atherosclerotic calcifications. No aneurysm or dissection. No severe major aortic branch vessel origin occlusion. Occluded left internal iliac artery, with distal reconstitution. Pelvis: Distended bladder with moderate wall thickening. Mild prostatomegaly. Soft Tissues: Soft tissues and body wall unremarkable. Bones: No acute osseous finding. Uncomplicated appearing screw and plate fixation of the proximal right tibia. Intramedullary fausto fixation of the right femur. Focal osteopenia in the inferior aspect of the left fifth metatarsal. Moderate wedge deformity at L1. Mild wedge deformity at L3. Right lower extremity: Patent right superficial femoral artery stent. Multifocal calcified plaques in the distal superior femoral and popliteal arteries causing severe stenoses. Posterior tibial artery occlusion. There is slow flow below the level of ankle via the anterior tibial and peroneal arteries. Severe subcutaneous fat stranding in the right foot. Left lower extremity: Extensive stenting on the left from the common femoral artery to the trifurcation. There is no vessel flow below the level of the ankle. There is extensive subcutaneous swelling and edema over the left foot. Soft tissue defect over the medial and dorsum of the left foot. IMPRESSION: Mild esophagitis/gastritis. Possible cirrhosis. Cystitis versus chronic bladder wall thickening from outlet obstruction. 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 Vertebral body endplate deformities resulting in moderate and mild degrees of height loss at L1 and L3 respectively, may be chronic or acute, correlate for pain/tenderness or history of recent trauma. Extensive atherosclerotic disease is seen generally, with extensive stenting of the bilateral lower extremity arteries. There is multivessel flow below the level of the ankle in both lower extremities. Findings concerning for osteomyelitis involving the inferior aspect of the distal fifth metatarsal. Extensive left foot soft tissue ulcerations with overlying edema or cellulitis. Diffuse edema/cellulitis of the right foot. EXAMINATION: CT brain wo con DATE: 06/16/2024 19:47 INDICATION: mental status changes . TECHNIQUE: Computed tomography (CT) of the head was performed without intravenous contrast. The mA was adjusted according to patient size. Iterative reconstruction technique was employed. The dose-length product was 605.33 mGy- cm. COMPARISON: 05/29/2019; MR brain 05/30/2019. FINDINGS: No acute intracranial hemorrhage or extra-axial fluid collection. No hydrocephalus, mass, or herniation. No acute ischemic infarct. Unremarkable dural venous sinus attenuation. No acute osseous abnormality. The aerated spaces are clear. Old left posterior limb internal capsule and focal periventricular infarcts. IMPRESSION: No acute intracranial process. EXAMINATION: CTA chest DATE: 06/16/2024 19:52 INDICATION: post code TECHNIQUE: Computed tomography angiography of the chest was performed with 150 mL Omnipaque-350 intravenous contrast in the arterial phase with. Automated exposure control and iterative reconstruction technique were employed. The dose- length product was 1842.63 mGy-cm. COMPARISON: None. FINDINGS: CHEST: Thoracic aorta: No significant dilation or calcification. Mild arch calcification. Lung parenchyma and airways: Mild dependent atelectasis, otherwise clear. Patent airways. Thoracic inlet, axillae and chest wall: Subcentimeter left thyroid lobe nodule, requiring no additional evaluation at this time. No soft tissue mass. No axillary lymphadenopathy. Mediastinum: No mass or lymphadenopathy. Heart and pericardium: Normal heart size. No pericardial effusion. Coronary artery calcifications: Mild. Pleura: No effusion or mass. Upper abdomen: No significant finding. Thoracic bones: No acute osseous finding in the chest. Old bilateral healed rib fractures. IMPRESSION: No acute thoracic process detected. Dr Lees already discussed with Dr Javon Elliott's office and it was recommended that he transfer patient to [facility] and patient will be consulted on by Dr Morgan. Currently awaiting transfer to [facility]. Surgery was consulted while he was her eand he was offered BKA which he declined thus prompting transfer to [facility]. Patient was accepted and eventually transferred. Patient was on broad spectrum antibiotics while awaiting transfer. Patient was stable on discharge Time Spent with Patient Time attestation: Total time spent providing and/or coordinating transfer services: DS: Data Data Completed and Pending Labs on day of discharge: Labs from last 24 hours 06/21/24 05:33 Iron 33 L TIBC 184 L % Saturation 18 L Ferritin 264.00 Preliminary micro results at discharge 06/16/24 18:36 Blood Culture - Preliminary Blood 06/16/24 18:36 Blood Culture - Preliminary Blood
== END 2024-06-21 22:20 | disposition short-term general hospital (02) | DRG 344 ==
LOC: ANHED 21:45 → ANH3MED 21:49
PROVIDERS: Emergency Medicine; General Practice; Nurse Practitioner Family; Admitting Provider Internal Medicine; Emergency Provider Student in an Organized Health Care Education/Training Program; PCP Family Medicine Adolescent Medicine; Visit Provider Internal Medicine
DX: M86.172 Other acute osteomyelitis, left ankle and foot (principal); I70.244 Atherosclerosis of native arteries of left leg with ulceration of heel and midfoot; L97.429 Non-pressure chronic ulcer of left heel and midfoot with unspecified severity; L97.529 Non-pressure chronic ulcer of other part of left foot with unspecified severity; L03.116 Cellulitis of left lower limb; L03.115 Cellulitis of right lower limb; I65.23 Occlusion and stenosis of bilateral carotid arteries; I10 Essential (primary) hypertension; I87.8 Other specified disorders of veins; E78.5 Hyperlipidemia, unspecified; G62.9 Polyneuropathy, unspecified; R29.6 Repeated falls; F17.210 Nicotine dependence, cigarettes, uncomplicated; F10.20 Alcohol dependence, uncomplicated; Z86.73 Personal history of transient ischemic attack (TIA), and cerebral infarction without residual deficits; Z95.820 Peripheral vascular angioplasty status with implants and grafts; Z79.02 Long term (current) use of antithrombotics/antiplatelets; Z79.82 Long term (current) use of aspirin
CPT/HCPCS: 36415; 70450; 71275; 73590; 73630; 75635; 80053; 80202; 81001; 82565; 82728; 83036; 83540; 83550; 83605; 83735; 84145; 84484; 85025; 85027; 85610; 85652; 85730; 86140; 87040; 93005; 96365; 96375; 99285; A9270; G0378; G0379; J0692; J3370; Q9967

== ENCOUNTER 2025-04-10 13:30 | Outpatient (CLI) | payer OTHER, SELFPAY ==
--- OUTSIDE RECORDS SUMMARY | 2025-04-10 13:41 | XMS_ITS | Encounter Summary ---
Author Organization [facility] Address [address] [place] [address] Phone Care Team Providers Care Highway Engineering Technician Name Role Phone Sander Griffiths Primary Care Provider [phone] Encounter Details Date Type Department Care Team (Late st Contact Info) Description 09/22/2022 Nursing Facility [facility] [address] [place] [address] Luis Tucker, GUNNAR [address] [place] [address] Social History Tobacco Use Types Packs/Day Years Used Date Smoking Tobacco: Every Day Cigarettes Smokeless Tobacco: Never Sex and Gender Information Value Date Recorded Sex Assigned at Not on file 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 male at [facility] for rehabilitation. 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 Subjective: Interval History: Patient is lying comfortably in bed. says that he is feeling well overall. However he has not been sleeping well since arrival to facility. Also says that his neuropathy type symptoms in his right leg has been worse since he suffered his injury. Otherwise feels like his therapy is going well and has no other concerns. Therapy says that he is improving. Nursing staff has no concerns about the patient. Past Medical History Positives Diagnosis Date ??? Hyperlipidemia ??? Hypertension Family History Problem Relation Age of Onset ??? Heart Attack Father ??? Heart Attack Brother Social History Socioeconomic History ??? Marital status: Legally Spouse name: Not on file ??? Number of children: Not on file ??? Years of education: Not on file ??? Highest education level: Not on file Occupational History ??? Not on file Tobacco Use ??? Smoking status: Every Day Packs/day: 0.25 Types: Cigarettes ??? Smokeless tobacco: Never Substance and Sexual Activity ??? Alcohol use: Not on file ??? Drug use: Not on file ??? Sexual activity: Not on file Other Topics Concern ??? Not on file Social History Narrative ??? Not on file Past Surgical History: Procedure Laterality Date ??? HIP FRACTURE SURGERY left hip pins Review of Systems: A 14 point comprehensive review of systems was negative except what is documented in interval history above. Objective: Exam: Vital Signs: B/P: 144/80 Pulse: 72 Respirations: 18 Temperature: 97.9 General: Well developed, well nourished, in no distress - pleasant, well-appearing Skin: Normal appearance, normal turgor, no rashes - 09/19: Wound dressing over right knee is clean dry and intact. Sirena in place over incision on anterior proximal thigh incision looks well healing. Large area of ecchymosis on lateral right thigh. HEENT: Normocephalic, atraumatic, no flaring Eyes: nonicteric, intact extra occular movement, PERRL Neck: normal, supple, no lymphadenopathy Heart: regular rate and rhythm, S1, S2 normal, no murmur, click, rub or gallop Lungs: clear to ausculation, normal respirations, normal precautions Abdominal: soft, non-tender; bowel sounds normal; no masses, no organomegaly Extremities: no deformities, joint mobility appears intact, no clubbing - 1+ Pedal pulse in right lower extremity with brisk capillary refills Neuro: Non-focal, CN intact, sensory and motor intact Psychological: alert and oriented X3, appropriate mood and affect, Intact judgement and memory Lab Results: 09/15/2022 upon discharge from hospital, BMP was within normal limits, CBC with hemoglobin 8.6 otherwise unremarkable. Imaging: None Assessment/Plan: Insomnia Continue trazodone 09/22 : Uncontrolled. Will add on melatonin. Peripheral neuropathy continue gabapentin 09/22: Worsening in his right lower extremity since his injury. Will hopefully improve as Continues in his recovery. Discussed with patient, will continue current regimen of gabapentin for now but consider increasing in the future if symptoms get worse. Closed displaced comminuted fracture of shaft of right femur status post surgical repair Receiving assisted physical therapy rehabilitation Followed by Ortho Has appointment on 10/24/2021 for follow-up with Ortho. Sirena To be removed on 09/30/2022 P.r.n. pain medicines and muscle relaxers Peripheral artererial disease Status post endarterectomy and angioplasty of right lower extremity during hospitalization Continue aspirin and statin therapy Vascular surgery follow-up on 10/18/2022 Distal left clavicle fracture Noted to have a nondisplaced distal left clavicle fracture on 09/09, however patient did not come to facility with sling and is not having any pain and is ranging his left arm normally Continue supportive care. Hypertension Continue lisinopril and metoprolol Monitor blood pressures Well controlled Alcohol abuse No signs of alcohol withdrawal Thiamine and folate ordered Educated on cessation options and encouraged to quit after discharge but patient is not appear interested in quitting Liver cirrhosis Stable Anemia of chronic disease Likely related to liver cirrhosis Baseline hemoglobin around 8-9 Monitor labs periodically Cigarette smoking Discussed cessation options and encouraged to quit, patient does not appear interested in quitting at this time VTE Prophylaxis: 09/19: Lovenox 40mg Q24h for the next 1 week I discussed advanced care planning with this patient. Disposition: Patient planning on going home at discharge where he lives with his spouse. This note was dictated using M*Modal fluency dictation system and there may be errors in ribbon hanking machine operator. Despite proof reading the note, there may be mistakes and I apologize for those. By: Luis Tucker, GUNNAR, 09/22/2022 1:42 PM MAINTENANCE AND REPAIR WORKER TENANCE AND REPAIR WORKER documented in this encounter Plan of Treatment Not on file documented as of this encounter Visit Diagnoses Not on filedocumented in this encounter Care Teams Highway Engineering Technician Relationship Specialty Start Date End Date Sander Griffiths PAC [address] [place] [id number] PCP - General Internal Medicine 05/17/18 documented as of this encounter
--- OUTSIDE RECORDS SUMMARY | 2025-04-10 13:41 | XMS_ITS | Clinical Summary ---
Author Organization [facility] Address [address] [place] [address] Care Team Providers Care Tower Hand Name Role Phone Sander Griffiths PA-C Primary Care Provider [phone] Jaun Garcia MD Unavailable Allergies Active Allergy Reactions Criticality Noted Date Comments Peanut Oil Sneezing 04/18/2018 Patient states sneezing reaction to peanuts Medications gabapentin 300 MG capsule Take 300 mg by mouth 3 (three) times a day. 01/31/2018 Active lisinopril 20 MG tablet Take 20 mg by mouth daily. 02/21/2018 Active metoprolol succinate 200 MG 24 hr tablet Take 200 mg by mouth daily. 01/16/2018 Active traMADol 50 MG tablet Take 50 mg by mouth as needed. 03/09/2018 Active aspirin 81 MG tablet Take 1 tablet (81 mg total) by mouth daily. 03/13/2018 Active Multiple Vitamins-Minera ls (DAILY MULTIVITAMIN) Cap Take 1 capsule by mouth daily. 03/13/2018 Active clopidogrel 75 MG tablet Take 1 tablet (75 mg total) by mouth daily. 90 tablet 03/13/2018 Active Active Problems Problem Noted Date Diagnosed Date Cellulitis of right lower extremity 03/29/2018 Swelling of limb, left 03/12/2018 Pain of left lower extremity 03/12/2018 Family History Medical History Relation Comments HIV Brother Relation Status Comments Brother (Age 45) Father (Age 50) Mother (Age 53) Social History Tobacco Use Types Packs/Day Years Used Date Smoking Tobacco: Every Day Cigarettes 1 35 Smokeless Tobacco: Never Alcohol Use Standard Drinks/Week Comments Yes 0 (1 standard drink = 0.6 oz pur e alcohol) drinks 14-15 beers per DAY Sex and Gender Information Value Date Recorded Sex Assigned at Not on file Legal Sex Male 2:21 PM CDT Gender Identity Not on file Sexual Orientation Not on file Last Filed Vital Signs Vital Sign Reading Time Taken Comments Blood Pressure 140/77 04/18/2018 2:30 PM CDT Pulse 80 04/18/2018 2:30 PM CDT Temperature 36.7 C (98 F) 04/18/2018 12:00 PM CDT Respiratory Rate 17 04/18/2018 2:30 PM CDT Oxygen Saturation 96% 04/18/2018 2:30 PM CDT Inhaled Oxygen Concentration - - Weight 89.3 kg (196 lb 13.9 oz) 018 12:00 PM CDT Height 182.9 cm (6') 04/18/2018 12:00 PM CDT Body Mass Index 26.7 04/18/2018 12:00 PM CDT Plan of Treatment Health Maintenance Due Date Last Done Comments Colorectal Cancer Screening Colonoscopy (10 Years) 1965 Annual Physical 02/04/1967 Hepatitis C 02/04/1982 DTaP, Tdap and Td Vaccines ( 1 - Tdap) 02/04/1983 Pneumococcal Vaccine: 50+ Ye ars (1 of 2 - PCV) 02/04/1983 Zoster Vaccines (1 of 2) 02/04/2014 COVID-19 Vaccine ( - 2023-2 5 season) 2024 RSV Immunization or 60+ Years (1 - 1-dose 75+ series) 02/04/2039 Meningococcal B Vaccine Aged Out No l onger eligible based on patient's age to complete this topic Meningococcal Vaccine Aged Out No cherrie galilea eligible based on patient's age to complete this topic RSV Immunizations Under 20 Months Aged Out No longer eligible based on patient's age to complete this topic Insurance [employer] Care Teams Tower Hand Relationship Specialty Start Date End Date Sander Griffiths PA-C [address] [place] [id number] PCP - General PHYSICIAN ENVIRONMENTAL RESTORATION PLANNER 02/23/18 Jaun Garcia MD [address] [address] Vascular/Tourist Adviser VASCULAR SURGERY 02/23/18
--- OUTSIDE RECORDS SUMMARY | 2025-04-10 13:41 | XMS_ITS | Clinical Summary ---
Author Organization [facility] Address [address] [place] [address] Phone Care Team Providers Care Senior Counsel Name Role Phone ClarendonSander trujillo GUNNAR Primary Care Provider [phone] Allergies No known active allergies Medications Aspirin 81 MG Tablet Take 81 mg by mouth daily. 03/13/2018 Active clopidogrel (PLAVIX) 75 MG Tablet Take 75 mg by mouth daily. 03/13/2018 Active gabapentin (NEURONTIN) 300 MG Capsule Take 300 mg by mouth 3 times daily. 01/31/2018 Active lisinopril (PRINIVIL, ZESTRIL) 20 MG Tablet Take 20 mg by mouth daily. 02/21/2018 Active metoprolol succinate (TOPROL-XL) 200 MG TABLET SR 24 HR Take 200 mg by mouth daily. 01/16/2018 Active traMADol (ULTRAM) 50 MG Tablet Take 50 mg by mouth every 6 hours. 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 Gender Identity Not on file Sexual Orientation Not on file Last Filed Vital Signs Vital Sign Reading Time Taken Comments Blood Pressure 155/89 05/29/2018 10:09 AM CDT Pulse 82 05/29/2018 10:09 AM CDT Temperature - - Respiratory Rate - - Oxygen Saturation - - Inhaled Oxygen Concentration - - Weight 91.6 kg (202 lb) 05/29/2018 9:59 AM CDT Height 182.9 cm (6') 05/29/2018 9:59 AM CDT Body Mass Index 27.4 05/29/2018 9:59 AM CDT Plan of Treatment Health Maintenance Due Date Last Done Comments Hepatitis C Virus (HCV) Screening 1965 Cologuard 02/04/2009 Colonoscopy 02/04/2009 Colorectal Cancer Screening 02/04/2009 Immunochemical Fecal Occult Blood 02/04/2009 Pneumococcal Immunization (5 0+ years) (1 of 1 - PCV) 02/04/2014 Zoster Immunization (1 of 2) 02/04/2014 Influenza Immunization (#1) 2025 05/07/2022 SARS-COV-2 Immunization ( season) 2025 01/12/2022, 08/10/2021, 07/10/2021 Respiratory Syncytial Virus (RSV) Immunization (Adult) (1 - 1-dose 75+ series) 02/04/2039 DTaP/Tdap/Td Immunization Discontinued 12/27/2018 TdaP Immunization Completed 12/27/2018 Hepatitis B Immunization Aged Out No longer eligible based on patient's age to complete this topic Human Papillomavirus (HPV) Immunization Aged Out No longer eligible based on patient's age to complete this topic Meningococcal Immunization (ACWY) Aged Out No longer eligible based on patient's age to complete this topic Rotavirus Immunization Aged Out No lo nger eligible based on patient's age to complete this topic Insurance MEDICAID [employer] Care Teams Senior Counsel Relationship Specialty Start Date End Date Sander Griffiths PAC [address] [place] [address] PCP - General Internal Medicine 05/17/18
--- OUTSIDE RECORDS SUMMARY | 2025-04-10 13:41 | XMS_ITS | Clinical Summary ---
Author Organization [facility] Address [address] [place] [address] [place] [address] Phone Care Team Providers Care Hosiery Pairer Name Role Phone Unavailable Primary Care Provider Unavailabl e Allergies No known active allergies Medications traMADol (ULTRAM) 50 mg tablet Take 2 Tabs (100 mg) by mouth every 6 hours as needed for Pain. 30 Tab 0 01/13/2015 Active Active Problems Problem Noted Date Diagnosed Date Cellulitis of right leg 01/11/2015 Acute lymphangitis of right lower extremity 02/2015 Family History Medical History Relation Name Comments Other Brother 2 Healthy Daughter 1 Healthy Daughter 2 Healthy Son Relation Name Status Comments Brother 1 Alive Brother 2 Alive Daughter 1 Alive Daughter 2 Alive Father Maternal Grandfather Maternal Grandmother Mother Paternal Grandfather Paternal Grandmother Sister Alive Son Alive Social History Tobacco Use Types Packs/Day Years Used Date Smoking Tobacco: Every Day Cigarettes 1 35 Alcohol Use Standard Drinks/Week Comments Yes 8 (1 standard drink = 0.6 oz pur e alcohol) Sex and Gender Information Value Date Recorded Sex Assigned at Not on file Legal Sex Male 1:28 PM CDT Gender Identity Not on file Sexual Orientation Not on file Last Filed Vital Signs Vital Sign Reading Time Taken Comments Blood Pressure 154/101 01/13/2015 7:00 AM CDT Pulse 74 01/13/2015 7:00 AM CDT Temperature 36.8 C (98.2 F) 01/13/2015 7:00 AM CDT Respiratory Rate 18 01/13/2015 7:00 AM CDT Oxygen Saturation 100% 01/13/2015 7:00 AM CDT Inhaled Oxygen Concentration - - Weight 90.3 kg (199 lb) 01/11/2015 4:08 PM CDT Height 182.9 cm (6') 01/11/2015 4:08 PM CDT Body Mass Index 26.99 01/11/2015 4:08 PM CDT Plan of Treatment Health Maintenance Due Date Last Done Comments DTAP/TDAP/TD VACCINES (1 - Tdap) 02/04/1983 COLORECTAL SCREENING 02/04/2009 Colorectal Cancer Screening 02/04/2009 FIT-DNA Q 3 years 02/04/2009 FIT/FOBT Q 1 year 02/04/2009 Flex Sig/CT Colonography Q 5 years 02/04/2009 ZOSTER VACCINE (1 of 2) 02/04/2014 INFLUENZA VACCINE (#1) 2025 RSV VACCINE (60+ or ) (1 - 1-dose 75+ series) 02/04/2039 Advance Directives For more information, please contact: [phone] * Full Code (Latest Code Status on File) Date Activated Date Inactivated Comments 01/11/2015 4:10 PM 01/13/2015 4:23 PM
--- OUTSIDE RECORDS SUMMARY | 2025-04-10 13:41 | XMS_ITS | Encounter Summary ---
Author Organization [facility] Address [address] [place] [address] Phone Care Team Providers Care Railroad Car Inspector Name Role Phone Sander Griffiths Primary Care Provider Encounter Details Date Type Department Care Team (Late st Contact Info) Description 09/29/2022 Nursing Facility [facility] [address] [place] [address] Luis Tucker, GUNNAR [address] [place] [address] Social History Tobacco Use Types Packs/Day Years Used Date Smoking Tobacco: Every Day Cigarettes Smokeless Tobacco: Never Sex and Gender Information Value Date Recorded Sex Assigned at Not on file Legal Sex Male 2:59 PM RAILROAD REPAIRER Gender Identity Not on file Sexual Orientation Not on file documented as of this encounter Progress Notes * Luis Tucker PAC - 09/29/2022 4:40 PM CST [facility] PROGRESS NOTE Gilbert Virgen is a 57 y.o. male at [facility] for rehabilitation. Prior to coming to rehabilitation facility patient was hospitalized at [facility] from 09/09 through 09/16 or surgical repair of a right femur fracture and also went endarterectomy and angioplasty of his severe arterial occlusive disease in right lower extremity. Subjective: Interval History: Patient is sitting comfortably in his wheelchair. He is feeling ???okay?? . He has no acute symptoms or concerns. Feels like therapy is going well. Therapy says that he is improving. Past Medical History Positives Diagnosis Date ??? [...] Objective: Exam: Vital Signs: B/P: 144/80 Pulse: 70 Respirations: 16 Temperature: 97.9 General: Well developed, well nourished, in no distress - pleasant, well-appearing Skin: Normal appearance, normal turgor, no rashes - 09/19: Wound dressing over right knee is clean dry and intact. Sirena in place over incision on anterior proximal thigh incision looks well healing. Large area of ecchymosis on lateral right thigh. 09/29/2022: Surgical incision sites around right knee are very well healed, sirena and sutures are placed. On the he lateral aspect right heel thereis a very superficial wound with dark wound bed approximately 2 x 3 cm in diameter. On the lateral posterior aspect right lower leg just above the ankle there is a wound approximately 2 x 3 cm in diameter with a dark appearing wound bed. HEENT: Normocephalic, atraumatic, no flaring Eyes: nonicteric, [...] right lower extremity with brisk capillary refills 09/29: Very faint dorsalis pedis pulse on right foot, caprefill on toes between 4-8 seconds. Slightly cool to touch but not necessarily cold and is basically the same temperature as his left foot. Decreased sensation throughout. Neuro: Non-focal, CN intact, sensory and motor intact Psychological: alert and oriented X3, appropriate mood and affect, Intact judgement and memory Lab Results: 09/15/2022 upon discharge from hospital, BMP was within normal limits, CBC with hemoglobin 8.6 otherwise unremarkable. Imaging: PROCEDURE: DUPLEX LOWER EXTREMITY ARTERIAL UNILATERAL STATUS: Final INTERPRETATION: Reason for Study: R60.9 EDEMA, UNSPECIFIED Principal Result Wireless Network Engineer: MATILDE PAPPAS ([id number]) Shop Supervisor: VIVIANA THORNTON (CJALAFF) Mixologist Shop Supervisor: FORREST DUPLEX LOWER EXTREMITY ARTERIAL UNILATERAL, RIGHT See Note FINDINGS: Right Lower Extremity Arterial Duplex Ultrasound: history: peripheral vascular disease findings: multiphasic waveform inflow. Lung segment occlusion proximal the middle femoral artery. Reconstitution distal femoral via collaterals. Monophasic pattern velocities: UI ENGINEER 23 cm/s proximal femoral one middle femoral zero distal femoral 14 popliteal 18, plane runner tibial 11, DP seven CONCLUSION: Moderate to severe inflow disease. Long segment occlusion femoral artery ELECTRONICALLY SIGNED BY MATILDE PAPPAS M.D 09/29/2022 3:41:55 PM RAILROAD REPAIRER. Assessment/Plan: Peripheral artererial disease Status post endarterectomy and angioplasty of right lower extremity during hospitalization Continue aspirin and statin therapy Vascular surgery follow-up on 10/18/2022 09/29/2022: Clinically circulation in right lower extremity seemed worse to me today that what it did on my initial evaluation. No true limb ischemia findings but consistent with very compromised flow. I was able to have a stat arterial Doppler done today, results above but showing occlusion of theright femoral artery. This report was faxed over to the vascular surgeon Dr. Snyder who reviewed it and felt that this is unchanged compared to what it was when he left the hospital. Dr. Snyder requesting to see pictures of the current wounds on right foot which the wound nurses sending over but current recommendation is to continue current treatment plan and current follow-up on 10/18. Insomnia Continue trazodone 09/22 : Uncontrolled. Will [...] right femur status post surgical repair Receiving [facility] physical therapy rehabilitation Followed by Ortho Has appointment on 10/24/2021 for follow-up with Ortho. Sirena To be removed on 09/30/2022 P.r.n. pain medicines and muscle relaxers 09/29: Incision sites look well healing. Brook and sutures to be removed tomorrow. Distal left clavicle fracture Noted to have [...] system and there may be errors in scratch finisher. Despite proof reading the note, there may be mistakes and I apologize for those. By: GUNNAR Marrero, 09/29/2022 4:[address] REPAIRER documented in this encounter Plan of Treatment Not on file documented as of this encounter Visit Diagnoses Not on filedocumented in this encounter Care Teams Railroad Car Inspector Relationship Specialty Start Date End Date Sander Griffiths PAC [address] [place] [address] PCP - General Internal Medicine 05/17/18 documented as of this encounter
--- OUTSIDE RECORDS SUMMARY | 2025-04-10 13:41 | XMS_ITS | Encounter Summary ---
Author Organization [facility] Address [address] [place] [address] Care Team Providers Care Ship Ceiler Name Role Phone Sander Griffiths PA-C Primary Care Provider [phone] Jaun Garcia MD Unavailable Encounter Details Date Type Department Care Team (Late st Contact Info) Description 02/27/2018 Abstract [facility] at [address] [address] Stephanie Cade MA Social History Tobacco Use Types Packs/Day Years Used Date Smoking Tobacco: Every Day Cigarettes Smokeless Tobacco: Never Alcohol Use Standard Drinks/Week Comments Yes 0 (1 standard drink = 0.6 oz pur e alcohol) drinks 14-15 beers per DAY Sex and Gender Information Value Date Recorded Sex Assigned at Not on file Legal Sex Male 2:21 PM CDT Gender Identity Not on file Sexual Orientation Not on file documented as of this encounter Plan of Treatment Not on file documented as of this encounter Procedures Procedure Name Priority Date/Time Associated Diagnosis Comments COMPREHENSIVE METABOLIC PANEL Routine 01/31/2018 MAGNESIUM Routine 01/31/2018 LIPID PANEL Routine 01/29/2018 documented in this encounter Results * MAGNESIUM (01/31/2018) MAGNESIUM 2.1 01/31/2018 [facility] Abstract LABORATORY Final Result * (ABNORMAL) COMPREHENSIVE METABOLIC PANEL (01/31/2018) SODIUM S/P/B 142 POTASSIUM S/P/B 3.8 CO2 26 CHLORIDE S/P/B 105 GLUCOSE 135 mg/dL CALCIUM S/P/B 8.9 BUN 12 CREATININE S/P/B 0.64(A) 0.7 - 1.3 EGFR AFR. AMER. >90 EGFR NON-AFR. AMER. >90 <=90 ALKALINE PHOSPHATASE S/P/B 136 ALT 57 AST 42 BILIRUBIN TOTAL S/P/B 0.3 ALBUMIN S/P/B 3.2(A) 3.5 - 5.0 TOTAL PROTEIN S/P/B 7.9 GLOBULIN 4.7 01/31/2018 [facility] LABOR[facility] Final Result * LIPID PANEL (01/29/2018) CHOLESTEROL 212 HDL 57 TRIGLYCERIDES 71 NON HDL CHOLESTEROL 155 LDL (CALCULATED) 141 01/29/2018 [facility] LABORATORY Final Result documented in this encounter Visit Diagnoses Not on filedocumented in this encounter Care Teams Ship Ceiler Relationship Specialty Start Date End Date Sander Griffiths PA-C [address] [place] [address] PCP - General PHYSICIAN PHYSICAL DIRECTOR 02/23/18 Jaun Garcia MD [address] [address] Vascular/Body Straightener VASCULAR SURGERY 02/23/18 documented as of this encounter
--- OUTSIDE RECORDS SUMMARY | 2025-04-10 13:41 | XMS_ITS | Clinical Summary ---
Author Organization [employer] Address [address] [facility] Attn: Epic Prelude ADT [place] [address] Care Team Providers Care Endodontic Assistant Name Role Phone Unavailable Primary Care Provider Unavailabl e Allergies No known active allergies Medications traMADoL (ULTRAM) 50 mg tablet Take 2 Tabs (100 mg) by mouth every 6 hours as needed for Pain. 30 Tablet 0 01/13/2015 Active Active Problems Problem Noted Date Diagnosed Date Acute lymphangitis of right lower extremity 02/2015 Cellulitis of right leg 01/11/2015 Family History Medical History Relation Name Comments Other Brother 1 Healthy Daughter 1 Healthy Daughter 2 Healthy Son Relation Name Status Comments Brother 1 Alive Brother 2 Alive Daughter 1 Alive Daughter 2 Alive Father Maternal Grandfather Maternal Grandmother Mother Paternal Grandfather Paternal Grandmother Sister Alive Son Alive Social History Tobacco Use Types Packs/Day Years Used Date Smoking Tobacco: Every Day Cigarettes Alcohol Use Standard Drinks/Week Comments Yes 8 (1 standard drink = 0.6 oz pur e alcohol) Sex and Gender Information Value Date Recorded Sex Assigned at Not on file Legal 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
--- OUTSIDE RECORDS SUMMARY | 2025-04-10 13:41 | XMS_ITS | Encounter Summary ---
Author Organization [facility] Address [address] [place] [address] Phone Care Team Providers Care Game Protector Name Role Phone Sander Griffiths Primary Care Provider [phone] Encounter Details Date Type Department Care Team (Late st Contact Info) Description 10/24/2022 Nursing Facility [facility] [address] [place] [address] Luis Tucker, GUNNAR [address] [place] [address] Social History Tobacco Use Types Packs/Day Years Used Date Smoking Tobacco: Every Day Cigarettes Smokeless Tobacco: Never Sex and Gender Information Value Date Recorded Sex Assigned at Not on file Legal Sex Male 2:59 PM COAT CHECK ATTENDANT Gender Identity Not on file Sexual Orientation Not on file documented as of this encounter Progress Notes * Luis Tucker PAC - 10/24/2022 11:46 AM CDT [facility] PROGRESS NOTE Gilbert Virgen is a 57 y.o. male at [facility] for rehabilitation. Prior to coming to rehabilitation facility patient was hospitalized at [facility] from 09/09 through 09/16 or surgical repair of a right femur fracture and also went endarterectomy and angioplasty of his severe arterial occlusive disease in right lower extremity. He was rehospitalized at [facility] from 10/04 through 10/08 for atherosclerosis of bypass graftof right lower extremity where he underwent planned balloon angioplasty to right lower extremity on10/06/2022. Was found to have a DVT in right lower extremity of the distal popliteal vein and proximal posterior tibial veins. Subjective: Interval History: Patient is sitting comfortably in his wheelchair Says that he feels ???pretty good?? . Denies any new pain or GI symptoms or any other medical concerns at this time. Has follow-up with Ortho today. Continues to be anxious because his is hospitalized in critical condition. Past Medical History Positives Diagnosis Date ??? [...] history above. Objective: Exam: Vital Signs: B/P: 128/78 Pulse: 78 Respirations: 20 Temperature: 98 General: Well developed, well nourished, in no [...] deformities, joint mobility appears intact, no clubbing Neuro: Non-focal, CN intact, sensory and motor intact Psychological: alert and oriented X3, appropriate mood and affect, Intact judgement and memory Lab Results: 09/15/2022 upon discharge from hospital, BMP was within normal limits, CBC with hemoglobin 8.6 otherwise unremarkable. 10/06/2022 upon discharge from hospital, BMP with sodium 134 otherwise unremarkable. CBC with hemoglobin 8.6 otherwise unremarkable. Imaging: PROCEDURE: DUPLEX LOWER EXTREMITY ARTERIAL UNILATERAL STATUS: Final INTERPRETATION: Reason for Study: R60.9 EDEMA, UNSPECIFIED Principal Result Pier Hand Helper: MATILDE PAPPAS ([id number]) Resin Remover: VIVIANA THORNTON (CJALAFF) Sewing Demonstrator Resin Remover: FORREST DUPLEX LOWER EXTREMITY ARTERIAL UNILATERAL, RIGHT See Note FINDINGS: Right Lower Extremity Arterial Duplex Ultrasound: history: peripheral vascular disease findings: multiphasic waveform inflow. Lung segment occlusion proximal the middle femoral artery. Reconstitution distal femoral via collaterals. Monophasic pattern velocities: REFINISH TECHNICIAN 23 cm/s proximal femoral one middle femoral zero distal femoral 14 popliteal 18, television maintenance man tibial 11, DP seven CONCLUSION: Moderate to severe inflow disease. Long segment occlusion femoral artery ELECTRONICALLY SIGNED BY MATILDE PAPPAS M.D 09/29/2022 3:41:55 PM COAT CHECK ATTENDANT. Assessment/Plan: Closed displaced comminuted fracture of shaft of right femur status post surgical repair Receiving long term physical therapy rehabilitation Followed by Ortho Has appointment on 10/24/2021 for follow-up with Ortho. Central To be removed on 09/30/2022 P.r.n. pain medicines and muscle relaxers 09/29: Incision sites look well healing. Central and sutures to be removed tomorrow. 10/24: Seeing Ortho today. Peripheral artererial disease Status post endarterectomy and angioplasty of right lower extremity during hospitalization Continue Plavix and statin therapy Vascular surgery follow-up on [...] treatment plan and current follow-up on 10/18. 10/10: Has underwent balloon angioplasty to right lower extremity. Distal circulation much improved. 10/17: Distal circulation looks really good. Wounds are improving. Has follow-up with vascular tomorrow and repeat vascular ultrasound. 10/20: Had ultrasound done by vascular surgery earlier this week, showing moderate arterial insufficiency. Wounds to right lower extremity 10/17: Well-healing Right lower extremity DVT a will or the Found to have acute DVT of the distal popliteal vein and proximal posterior tibial veins 10/10: On Eliquis which she will need to be on for least 3 months. Insomnia Continue trazodone 09/22 : Uncontrolled. Will add on melatonin. 10/03: Still not well controlled. Will increase dose of melatonin. Peripheral neuropathy continue gabapentin 09/22: Worsening in his right lower extremity since his injury. Will hopefully improve as Continues in his recovery. Discussed with patient, will continue current regimen of gabapentin for now but consider increasing in the future if symptoms get worse. Distal left clavicle fracture Noted to have [...] appear interested in quitting Liver cirrhosis Stable 10/03: No signs of decompensation Anemia of chronic disease Likely related to liver cirrhosis Baseline hemoglobin around 8-9 Monitor labs periodically Cigarette smoking Discussed cessation options and encouraged to quit, patient does not appear interested in quitting at this time COVID-19 Resolved VTE Prophylaxis: Activity I discussed advanced care planning with this patient. Disposition: Patient planning on going home at discharge where he lives with his spouse. This note was dictated using M*Modal fluency dictation system and there may be errors in neonatal pediatric nurse. Despite proof reading the note, there may be mistakes and I apologize for those. By: GUNNAR Marrero, 10/24/2022 11:46 AM CDT documented in this encounter Plan of Treatment Not on file documented as of this encounter Visit Diagnoses Not on filedocumented in this encounter Care Teams Game Protector Relationship Specialty Start Date End Date Sander Griffiths PAC [address] [place] [address] PCP - General Internal Medicine 05/17/18 documented as of this encounter
--- OUTSIDE RECORDS SUMMARY | 2025-04-10 13:41 | XMS_ITS | Encounter Summary ---
Author Organization [facility] Address [address] [place] [address] Phone Care Team Providers Care Licensed Psychologist Name Role Phone Sander Griffiths GUNNAR Primary Care Provider [phone] Encounter Details Date Type Department Care Team (Late st Contact Info) Description 09/23/2022 Nursing Facility [facility] [address] [place], [place] [address] [address] Oli Waters MD [address] [place] [address] Social History Tobacco Use Types Packs/Day Years Used Date Smoking Tobacco: Every Day Cigarettes Smokeless Tobacco: Never Sex and Gender Information Value Date Recorded Sex Assigned at Not on file Legal Sex Male 2:59 PM MENTAL HEALTH 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 male who has transferred to [facility] from [facility] for post-acute care and rehabilitation. The patient has a PMHx of HTN, HLD, alcohol abuse, liver cirrhosis, and PAD. He suffered an intoxicated fall at home and was admitted to the hospital from 09/09 to 09/16 for surgical repair of a right femur fracture and also went endarterectomy and angioplasty for severe arterial occlusive disease in right lower extremity. CIWA precautions were initiated upon his admission. He was also noted to have a left clavicle fracture that was recommended for non-operative management with PT/OT. At the time of this assessment the patient complained of pain in his right leg. History obtained from: patient, medical records Review of Prior External Notes: [facility] records Allergies: has No Known Allergies. Past Medical History: He has a past medical history of Hyperlipidemia and Hypertension., alcohol abuse, liver cirrhosis, anemia, PAD Surgical History: has a past surgical history that includes Hip Fracture Surgery. Social History: Daily use of alcohol and tobacco with cigarette smoking. Physical Exam: Vital Signs: All vitals were reviewed in the facility EMR and are stable. Exam: General: Well developed, well nourished, in no distress Skin: Normal appearance, normal turgor, no rashes, sutures over incision on right knee appear cleanand healing, hematoma over lateral superior border of R knee, sirena in place over incision on anterior proximal thigh incision looks well healing HEENT: Normocephalic, atraumatic, no flaring Eyes: nonicteric, intact extra occular movement, PERRL Neck: normal, supple, no lymphadenopathy Heart: regular rate and rhythm, S1, S2 normal, no murmur, click, rub or gallop Lungs: clear to ausculation, normal respirations, normal precautions Abdominal: soft, non-tender; bowel sounds normal; no masses, no organomegaly : external genitalia normal in appearance Extremities: no deformities, joint mobility appears intact, no clubbing Neuro: Non-focal, CN intact, sensory and motor intact Psychological: alert and oriented X3, appropriate mood and affect, Intact judgement and memory Data Review: Lab Results: Lab Results Component Value Date SODIUM 135 (L) 07/12/2018 POTASSIUM 4.9 07/12/2018 CHLORIDE 98 (L) 07/12/2018 CO2VEN 25 07/12/2018 GLUCOSE 95 07/12/2018 ANIONGAP 16.9 07/12/2018 BUN 7 07/12/2018 CREATININE 0.72 (L) 07/12/2018 CALCIUM 9.7 07/12/2018 09/15/2022 upon discharge from hospital, BMP was within normal limits, CBC with hemoglobin 8.6 otherwise unremarkable. Imaging: Recent imaging reviewed and there were no new findings. Labs Ordered: No new labs were ordered for this visit. Medication Changes: None Assessment/Plan: 1. Closed displaced comminuted fracture of shaft of right femur s/p surgical repair with intramedullary nailing of femur. The patient is to receive PT and OT at the [facility] to improve strength, balance, and mobility back to baseline. Follow- up with ortho on 10/24/22. Sirena to be removed 09/30/22. Continue Flexeril and pain management with PRN oxycodone. 2. PNP. The patient has been experiencing worsening symptoms with pain in his RLE since his injury.Continue the same dose of gabapentin for now. If the pain does not improve with his post-op PT and rehab then we will consider increasing the dosage. 3. PAD. S/p post right ileofemoral endarterectomy and patch angioplasty during hospitalization. Follow-up appointment with vascular surgery on 10/18. Continue aspirin and statin therapy with Lipitor. 4. Left distal clavicle fracture, nondisplaced. Noted at hospital on 09/09 after fall. Ortho recommended non-operative management and WBAT with PT/OT. Patient did not come to facility with sling and has a normal ROM in his LUE with no pain. 5. Insomnia. The patient is on nightly trazodone. Poorly controlled since arriving at [facility] and he had melatonin added to his regimen on 09/22. 6. Hypertension. BP stable. Continue management with lisinopril and metoprolol. Monitor vital signswhile at the [facility]. 7. Alcohol dependence. Patient was intoxicated at the time of his fall and upon arrival to the hospital and was started on CIWA precautions. Thiamine and folate supplementation is being given. No signs of alcohol withdrawal. Cessation strategies have been discussed with the patient and he has been strongly encouraged to quit drinking but it is unclear if he will do so. 8. Liver cirrhosis. Secondary to ETOH abuse. Stable. Patient has been encouraged to stop drinking as listed above. 9. Anemia of chronic disease. Hgb stable at 8.6 on 09/15 which is at the patient's baseline. Monitor CBC periodically and advise transfusion if Hgb drops below 7.0. 10. Tobacco dependence. Cessation has been strongly encouraged and strategies were discussed with the patient but he does not seem interested in stopping smoking at this time. VTE Prophylaxis: Lovenox 40 mg Q24h Disposition and escalation or reduction of care: The patient is receive post- acute care and complete PT and OT at the SNF to improve their strength, balance, and mobility back to baseline with the goal of discharging to home where he lives with his . Barriers to Rehabilitation: The patient has a hx of alcohol and tobacco dependence/abuse and has not expressed any interest in cessation Advance Care Planning: Aggregate lnua-nu-wogd time, greater than 16 minutes was spent discussing end-of-life care planning with patient/family and/or Power of Survey Associate. Discussed CPR, Intubation, treatment goals, and Quality of life/Intensity of care. Patient desires CPR-Full Treatment I, Yovany Subramanian, acting as a scribe, am personally taking down the notes in the presence of Dr. Oli Waters M.D. Take no action on this note until reviewed and authenticated by the physician. By: YOVANY SUBRAMANIAN, 09/23/2022 Primary Care Physician: GUNNAR DORSEY . I evaluated and examined the patient in the presence of scribe Yovany Subramanian and discussed the physical findings and clinical assessment with her and reviewed the medical records and notes above and agree with the content and details of the note. Oli Waters M.D. 2:00 PM AL HEALTH CLINICIAN AL HEALTH CLINICIAN AL HEALTH CLINICIAN documented in this encounter Plan of Treatment Not on file documented as of this encounter Visit Diagnoses Not on filedocumented in this encounter Care Teams Licensed Psychologist Relationship Specialty Start Date End Date Sander Griffiths PAC [address] [place] [address] PCP - General Internal Medicine 05/17/18 documented as of this encounter
--- OUTSIDE RECORDS SUMMARY | 2025-04-10 13:41 | XMS_ITS | Encounter Summary ---
Author Organization [facility] Address [address] [place] [address] Phone Care Team Providers Care Urban Planning Teacher Name Role Phone Sander Griffiths Primary Care Provider Encounter Details Date Type Department Care Team (Late st Contact Info) Description 10/10/2022 Nursing Facility [facility] [address] [place] [address] Luis Tucker, GUNNAR [address] [place] [address] Social History Tobacco Use Types Packs/Day Years Used Date Smoking Tobacco: Every Day Cigarettes Smokeless Tobacco: Never Sex and Gender Information Value Date Recorded Sex Assigned at Not on file Legal Sex Male 2:59 PM MANAGER ART Gender Identity Not on file Sexual Orientation Not on file documented as of this encounter Progress Notes * Luis Tucker PAC - 10/10/2022 2:23 PM CST [facility] PROGRESS NOTE Gilbert Virgen is a 57 y.o. male at [facility] for rehabilitation. 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 He was rehospitalized at [facility] from 10/04 through 10/08 for atherosclerosis of bypass graftof right lower extremity where he underwent planned balloon angioplasty to right lower extremity on10/06/2022. Was found to have a DVT in right lower extremity of the distal popliteal vein and proximal posterior tibial veins. Subjective: Interval History: Patient is sitting comfortably on the edge of his bed. Says that he feels ???fine?? . See above for recent hospitalization. Having continued discomfort in right foot but no significant change compared to what it had been. Denies any COVID-19 symptoms and does not want to quarantine anymore. He is fully vaccinated. No symptoms or concerns at this time otherwise. Nursing staff with no acute concerns. Past Medical History Positives Diagnosis Date ??? [...] history above. Objective: Exam: Vital Signs: B/P: 127/66 Pulse: 77 Respirations: 18 Temperature: 97.8 General: Well developed, well nourished, in no distress - pleasant, well-appearing Skin: Normal appearance, normal turgor, no rashes - 09/19: Wound dressing over right knee is clean dry and intact. Sharon in place over incision on anterior proximal [...] deformities, joint mobility appears intact, no clubbing -3/6: Still very faint palpable dorsalis pedis pulse in right foot. Cap refill of 2-3 seconds in toes in right lower extremity.Trace to 1+ pitting edema in right foot. Neuro: Non-focal, CN intact, sensory and motor [...] for Study: R60.9 EDEMA, UNSPECIFIED Principal Result Environmental Educator: MATILDE PAPPAS ([id number]) Tube Inspector: VIVIANA THORNTON (CJALAFF) Spinner Box Tube Inspector: FORREST DUPLEX LOWER EXTREMITY ARTERIAL UNILATERAL, RIGHT See Note FINDINGS: Right Lower Extremity Arterial Duplex Ultrasound: history: peripheral vascular disease findings: multiphasic waveform inflow. Lung segment occlusion proximal the middle femoral artery. Reconstitution distal femoral via collaterals. Monophasic pattern velocities: SALES OPERATIONS COORDINATOR 23 cm/s proximal femoral one middle femoral zero distal femoral 14 popliteal 18, paratransit operator tibial 11, DP seven CONCLUSION: Moderate to severe inflow disease. Long segment occlusion femoral artery ELECTRONICALLY SIGNED BY MATILDE PAPPAS M.D 09/29/2022 3:41:55 PM MANAGER ART. Assessment/Plan: Peripheral artererial disease Status post endarterectomy [...] right lower extremity. Distal circulation much improved. Right lower extremity DVT Found to have acute DVT of the distal popliteal vein and proximal posterior tibial veins 10/10: On Eliquis which she will need to be on for least 3 months. COVID-19 10/10: Incidentally found to have COVID-19 during recent hospitalization for planned vascular procedure. He remains asymptomatic. Continue to monitor for any symptom development. Insomnia Continue trazodone 09/22 : Uncontrolled. Will [...] right femur status post surgical repair Receiving longterm physical therapy rehabilitation Followed by Ortho Has appointment on 10/24/2021 for follow-up with Ortho. Sirena To be removed on 09/30/2022 P.r.n. pain medicines and muscle relaxers 09/29: Incision sites look well healing. Sirena and sutures to be removed tomorrow. Distal [...] in quitting at this time VTE Prophylaxis: Activity I discussed advanced care planning with this patient. Disposition: Patient planning on going home at discharge where he lives with his spouse. This note was dictated using M*Modal fluency dictation system and there may be errors in compliance paralegal. Despite proof reading the note, there may be mistakes and I apologize for those. By: GUNNAR Marrero, 10/10/2022 2:23 PM MANAGER ART GER ART documented in this encounter Plan of Treatment Not on file documented as of this encounter Visit Diagnoses Not on filedocumented in this encounter Care Teams Urban Planning Teacher Relationship Specialty Start Date End Date Sander Griffiths PAC [address] [place] [address] PCP - General Internal Medicine 05/17/18 documented as of this encounter
--- OUTSIDE RECORDS SUMMARY | 2025-04-10 13:41 | XMS_ITS | Encounter Summary ---
Author Organization [facility] Address [address] [place] [address] Phone Care Team Providers Care Global Clinical Leader Name Role Phone Sander Griffiths Primary Care Provider [phone] Encounter Details Date Type Department Care Team (Late st Contact Info) Description 10/20/2022 Nursing Facility [facility] [address] [place] [address] Luis Tucker, GUNNAR [address] [place] [address] Social History Tobacco Use Types Packs/Day Years Used Date Smoking Tobacco: Every Day Cigarettes Smokeless Tobacco: Never Sex and Gender Information Value Date Recorded Sex Assigned at Not on file Legal Sex Male 2:59 PM MANGA ARTIST Gender Identity Not on file Sexual Orientation Not on file documented as of this encounter Progress Notes * Luis Tucker PAC - 10/20/2022 3:28 PM CDT [facility] PROGRESS NOTE Gilbert Virgen is a 57 y.o. male at [facility] for rehabilitation. 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 He was rehospitalized at [facility] from 10/04 through 10/08 for atherosclerosis of bypass graftof right lower extremity where he underwent planned balloon angioplasty to right lower extremity on10/06/2022. Was found to have a DVT in right lower extremity of the distal popliteal vein and proximal posterior tibial veins. Subjective: Interval History: Patient is sitting comfortably in his wheelchair Says that he feels ???good?? . Denies any acute symptoms of poor medical concerns at this time. Says that on his vascular surgery follow-up earlier this week he never actually saw the vascular surgeon. Had arterial ultrasound done and does not have access to the results. Currently feeling anxious because his is hospitalized in critical condition. Therapy says he is doing well, aiming for discharge on Monday. Past Medical History Positives Diagnosis Date ??? [...] history above. Objective: Exam: Vital Signs: B/P: 104/73 Pulse: 74 Respirations: 16 Temperature: 97.7 General: Well developed, well nourished, in no distress - pleasant, well-appearing Skin: Normal appearance, normal turgor, no rashes - 09/19: Wound dressing over right knee is clean dry and intact. Doss in place over incision on anterior proximal thigh incision looks well healing. Large area of ecchymosis on lateral right thigh. 09/29/2022: Surgical incision sites around right knee are very well healed, jessica and sutures are placed. On the he [...] for Study: R60.9 EDEMA, UNSPECIFIED Principal Result Automation Tester: MATILDE PAPPAS ([id number]) Psychologist Clinical: VIVIANA THORNTON (CJALAFF) Elephant Keeper Psychologist Clinical: FORREST DUPLEX LOWER EXTREMITY ARTERIAL UNILATERAL, RIGHT See Note FINDINGS: Right Lower Extremity Arterial Duplex Ultrasound: history: peripheral vascular disease findings: multiphasic waveform inflow. Lung segment occlusion proximal the middle femoral artery. Reconstitution distal femoral via collaterals. Monophasic pattern velocities: MACROECONOMICS PROFESSOR 23 cm/s proximal femoral one middle femoral zero distal femoral 14 popliteal 18, compressed gases tester tibial 11, DP seven CONCLUSION: Moderate to severe inflow disease. Long segment occlusion femoral artery ELECTRONICALLY SIGNED BY MATILDE PAPPAS M.D 09/29/2022 3:41:55 PM MANGA ARTIST. Assessment/Plan: Peripheral artererial disease Status post endarterectomy [...] well controlled. Will increase dose of melatonin. COVID-19 10/10: Incidentally found to have COVID-19 during recent hospitalization for planned vascular procedure. He remains asymptomatic. Continue to monitor for any symptom development. 10/13: Remains asymptomatic. 10/17: Has completed his quarantine. Never developed any symptoms. Peripheral neuropathy continue gabapentin 09/22: Worsening in his right lower extremity since his injury. Will hopefully improve as Continues in his recovery. Discussed with patient, will continue current regimen of gabapentin for now but consider increasing in the future if symptoms get worse. Closed displaced comminuted fracture of shaft of right femur status post surgical repair Receiving [facility] physical therapy rehabilitation Followed by Ortho Has appointment on 10/24/2021 for follow-up with Ortho. Doss To be removed on 09/30/2022 P.r.n. pain medicines and muscle relaxers 09/29: Incision sites look well healing. Doss and sutures to be removed tomorrow. Distal [...] his spouse. This note was dictated using [employer]*SUPR fluency dictation system and there may be errors in ell tutor. Despite proof reading the note, there may be mistakes and I apologize for those. By: GUNNAR Marrero, 10/20/2022 3:28 PM CDT documented in this encounter Plan of Treatment Not on file documented as of this encounter Visit Diagnoses Not on filedocumented in this encounter Care Teams Global Clinical Leader Relationship Specialty Start Date End Date Sander Griffiths PAC [address] [place] [address] PCP - General Internal Medicine 05/17/18 documented as of this encounter
--- OUTSIDE RECORDS SUMMARY | 2025-04-10 13:41 | XMS_ITS | Encounter Summary ---
Author Organization [facility] Address [address] [place] [address] Phone Care Team Providers Care Associate Professor Of Kinesiology Name Role Phone Sander Griffiths Primary Care Provider [phone] Encounter Details Date Type Department Care Team (Late st Contact Info) Description 10/17/2022 Nursing Facility [facility] [address] [place] [address] Luis Tucker, GUNNAR [address] [place] [address] Social History Tobacco Use Types Packs/Day Years Used Date Smoking Tobacco: Every Day Cigarettes Smokeless Tobacco: Never Sex and Gender Information Value Date Recorded Sex Assigned at Not on file Legal Sex Male 2:59 PM STRUCTURAL FITTER Gender Identity Not on file Sexual Orientation Not on file documented as of this encounter Progress Notes * Luis Tucker PAC - 10/17/2022 11:21 AM CDT [facility] PROGRESS NOTE Gilbert Virgen is a 57 y.o. male at [facility] for rehabilitation. 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 He was rehospitalized at [facility] from 10/04 through 10/08 for atherosclerosis of bypass graftof right lower extremity where he underwent planned balloon angioplasty to right lower extremity on10/06/2022. Was found to have a DVT in right lower extremity of the distal popliteal vein and proximal posterior tibial veins. Subjective: Interval History: Patient is sitting comfortably in his wheelchair Says that he feels ???good?? . Has completed his COVID-19 quarantine and never had any symptoms. Has no acute concerns. Wounds on right leg examined by me today and look to be improving. Distal circulation of right lower extremity much improved. Nursing staff with no acute concerns. Past [...] Objective: Exam: Vital Signs: B/P: 104/73 Pulse: 76 Respirations: 18 Temperature: 97.7 General: Well developed, well nourished, [...] for Study: R60.9 EDEMA, UNSPECIFIED Principal Result Admin Assistant: MATILDE PAPPAS ([id number]) Paper Rewinder: VIVIANA THORNTON (CJALAFF) Senior Policy Analyst Paper Rewinder: FORREST DUPLEX LOWER EXTREMITY ARTERIAL UNILATERAL, RIGHT See Note FINDINGS: Right Lower Extremity Arterial Duplex Ultrasound: history: peripheral vascular disease findings: multiphasic waveform inflow. Lung segment occlusion proximal the middle femoral artery. Reconstitution distal femoral via collaterals. Monophasic pattern velocities: OPTICAL INSTRUMENTS SUPERVISOR 23 cm/s proximal femoral one middle femoral zero distal femoral 14 popliteal 18, residential leasing agent tibial 11, DP seven CONCLUSION: Moderate to severe inflow disease. Long segment occlusion femoral artery ELECTRONICALLY SIGNED BY MATILDE PAPPAS M.D 09/29/2022 3:41:55 PM STRUCTURAL FITTER. Assessment/Plan: COVID-19 10/10: Incidentally found to have COVID-19 during recent hospitalization for planned vascular procedure. He remains asymptomatic. Continue to monitor for any symptom development. 10/13: Remains asymptomatic. 10/17: Has completed his quarantine. Never developed any symptoms. Peripheral artererial disease Status post endarterectomy and [...] with vascular tomorrow and repeat vascular ultrasound. Wounds to right lower extremity 10/17: Well-healing Right lower extremity DVT Found to have [...] right femur status post surgical repair Receiving care home physical therapy rehabilitation Followed by Ortho Has [...] system and there may be errors in mine utility operator. Despite proof reading the note, there may be mistakes and I apologize for those. By: GUNNAR Marrero, 10/17/2022 11:21 AM CDT documented in this encounter Plan of Treatment Not on file documented as of this encounter Visit Diagnoses Not on filedocumented in this encounter Care Teams Associate Professor Of Kinesiology Relationship Specialty Start Date End Date Sander Griffiths PAC [address] [place] [address] PCP - General Internal Medicine 05/17/18 documented as of this encounter
--- OUTSIDE RECORDS SUMMARY | 2025-04-10 13:41 | XMS_ITS | Clinical Summary ---
Author Organization [facility] Address [address] [place] [address] Care Team Providers Care Lettuce Cutter Name Role Phone Kyle Ndiaye MD Primary Care Provider + Source Comments [facility],non-owned Affiliates and Associated Physician Practices is amultiple site organization consisting of ambulatory clinics and hospital sitesin [place], [place], [place] and [place]. This disclosure is being madepursuant to the Care Everywhere program and may not contain all information available regarding this patient. Last updated 18.[facility] Allergies Active Allergy Reactions Criticality Noted Date Comments Peanut-Derived Swelling,Other 12/04/2017 sneezing Medications * Be aware that medications may not be up to date on this document. Alwaysverify current medications with the patient. metoprolol succinate XL 24hr (TOPROL XL) 200 MG tablet Take 200 mg by mouth once daily Active DICLOFENAC PO Take 75 mg by mouth 2 times daily Active amLODIPine (NORVASC) 5 MG tablet Take 5 mg by mouth once daily Active Active Problems Problem Noted Date Diagnosed Date Chronic hepatitis C without hepatic coma 018 Overview (05/05/2018): 05/04/18 Fibroscan CAP 302, E 6.4 kPa HTN (hypertension) 12/04/2017 Social History Tobacco Use Types Packs/Day Years Used Date Smoking Tobacco: Every Day Cigarettes 0.5 40 Smokeless Tobacco: Never Comments:10 cigarettes/day Alcohol Use Standard Drinks/Week Comments Yes 60 (1 standard drink = 0.6 oz pu re alcohol) 60 beers/week 12 oz can Sex and Gender Information Value Date Recorded Sex Assigned at Not on file Legal Sex Male 5:58 PM CDT Gender Identity Not on file Sexual Orientation Not on file Last Filed Vital Signs Vital Sign Reading Time Taken Comments Blood Pressure 125/81 05/04/2018 10:35 AM CDT Pulse 65 05/04/2018 10:35 AM CDT Temperature 37 C (98.6 F) 05/04/2018 10:35 AM CDT Respiratory Rate 18 05/04/2018 10:35 AM CDT Oxygen Saturation 98% 05/04/2018 10:35 AM CDT Inhaled Oxygen Concentration - - Weight 90.9 kg (200 lb 4.8 oz) 05/04/2018 10:35 AM CDT Height 182.9 cm (6') 05/04/2018 10:35 AM CDT Body Mass Index 27.17 05/04/2018 10:35 AM CDT Plan of Treatment Health Maintenance Due Date Last Done Comments COLOGUARD (AGES 45-75) - COLON CA SCREENING 1964 COLON MONITORING 1964 COLONOSCOPY - COLON CA SCREENING 1964 CT COLONOGRAPHY - COLON CA SCREENING 1964 Colorectal Cancer Screening 1964 FIT - COLON CA SCREENING 1964 FLEX SIG - COLON CA SCREENING 1964 LIPID TESTING 1964 HIV SCREENING 02/04/1979 DTAP/TDAP/TD VACCINES (1 - Tdap) 02/04/1983 PNEUMOCOCCAL VACCINE 50+ (1 of 2 - PCV) 02/04/1983 ZOSTER VACCINE (1 of 2) 02/04/2014 SCREENING FOR DIABETES 12/04/2017 HEPATITIS B VACCINE (1 of 3 - Risk 3-dose series) 2024 Respiratory Syncytial Virus (RSV) Vaccine Pt: or over 60 yrs (1 - Risk 60-74 years 1-dose series) 2024 COVID-19 VACCINE (1 - 2023- season) 2024 DEPRESSION SCREENING 08/07/2024 INFLUENZA VACCINE (#1) 2025 05/07/2022 HEPATITIS C SCREENING Completed 05/04/2018 , 04/30/2018, 12/04/2017, Additional history exists HIB VACCINE Aged Out No longer eligi ble based on patient's age to complete this topic HPV VACCINE Aged Out No longer eligi ble based on patient's age to complete this topic MENINGOCOCCAL (Group B) VACCINE SHARED DECISION-MAKING Aged Out No longer eligible based on patient's age to complete this topic MENINGOCOCCAL GROUPS A/C/Y/W VACCINE Aged Out No longer eligible based on patient's age to complete this topic Insurance Care Teams Lettuce Cutter Relationship Specialty Start Date End Date Kyle Ndiaye MD [address] [place] [id number] PCP - General 11/20/17
--- OUTSIDE RECORDS SUMMARY | 2025-04-10 13:41 | XMS_ITS | Encounter Summary ---
Author Organization [facility] Address [address] [place] [address] Phone Care Team Providers Care Labor Law Professor Name Role Phone Sander Griffiths Primary Care Provider [phone] Encounter Details Date Type Department Care Team (Late st Contact Info) Description 10/13/2022 Nursing Facility [facility] [address] [place] [address] Luis Tucker, GUNNAR [address] [place] [address] Social History Tobacco Use Types Packs/Day Years Used Date Smoking Tobacco: Every Day Cigarettes Smokeless Tobacco: Never Sex and Gender Information Value Date Recorded Sex Assigned at Not on file Legal Sex Male 2:59 PM GEOLOGY ASSOCIATE Gender Identity Not on file Sexual Orientation Not on file documented as of this encounter Progress Notes * Luis Tucker PAC - 10/13/2022 5:19 PM CST [facility] PROGRESS NOTE Gilbert Virgen is a 57 y.o. male at [facility] for rehabilitation. 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 He was rehospitalized at [facility] from 10/04 through 10/08 for atherosclerosis of bypass graftof right lower extremity where he underwent planned balloon angioplasty to right lower extremity on10/06/2022. Was found to have a DVT in right lower extremity of the distal popliteal vein and proximal posterior tibial veins. Subjective: Interval History: Patient is sitting comfortably in his wheelchair Says that he feels ???good?? . Pain right leg is tolerable. Remains asymptomatic with his COVID-19 and his quarantine ends tomorrow which he looking for to. No symptoms or concerns at this time [...] deformities, joint mobility appears intact, no clubbing -10/10: Still very faint palpable dorsalis pedis pulse in right foot. Cap refill of 2-3 seconds in toes in right lower extremity. Trace to 1+ pitting edema in right foot. [...] for Study: R60.9 EDEMA, UNSPECIFIED Principal Result Rollout Manager: MATILDE PAPPAS ([id number]) Video Manager: VIVIANA THORNTON (CJALAFF) Rubber Mill Tender Video Manager: FORREST DUPLEX LOWER EXTREMITY ARTERIAL UNILATERAL, RIGHT See Note FINDINGS: Right Lower Extremity Arterial Duplex Ultrasound: history: peripheral vascular disease findings: multiphasic waveform inflow. Lung segment occlusion proximal the middle femoral artery. Reconstitution distal femoral via collaterals. Monophasic pattern velocities: AIRCRAFT CYLINDER MECHANIC 23 cm/s proximal femoral one middle femoral zero distal femoral 14 popliteal 18, respiratory assistant tibial 11, DP seven CONCLUSION: Moderate to severe inflow disease. Long segment occlusion femoral artery ELECTRONICALLY SIGNED BY MATILDE PAPPAS M.D 09/29/2022 3:41:55 PM GEOLOGY ASSOCIATE. Assessment/Plan: COVID-19 10/10: Incidentally found to have COVID-19 during recent hospitalization for planned vascular procedure. He remains asymptomatic. Continue to monitor for any symptom development. 10/13: Remains asymptomatic. Peripheral artererial disease Status post endarterectomy and [...] since his injury. Will hopefully improve as Continuesin his recovery. Discussed with patient, will continue current regimen of gabapentin for now but consider increasing in the future if symptoms get worse. Closed displaced comminuted fracture of shaft of right femur status post surgical repair Receiving [facility] physical therapy rehabilitation Followed by Ortho Has appointment on 10/24/2021 for follow-up with Ortho. [place] To be removed on 09/30/2022 P.r.n. pain medicines and muscle relaxers 09/29: Incision sites look well healing. [place] and sutures to be removed tomorrow. Distal [...] system and there may be errors in lead die molder. Despite proof reading the note, there may be mistakes and I apologize for those. By: GUNNAR Marrero, 10/13/2022 5:19 PM GEOLOGY ASSOCIATE OGY ASSOCIATE documented in this encounter Plan of Treatment Not on file documented as of this encounter Visit Diagnoses Not on filedocumented in this encounter Care Teams Labor Law Professor Relationship Specialty Start Date End Date Sander Griffiths PAC [address] [place] [address] PCP - General Internal Medicine 05/17/18 documented as of this encounter
--- OUTSIDE RECORDS SUMMARY | 2025-04-10 13:41 | XMS_ITS | Encounter Summary ---
Author Organization [facility] Address [address] [place] [address] Phone Care Team Providers Care Engineering Vice President Name Role Phone Sander Griffiths Primary Care Provider [phone] Encounter Details Date Type Department Care Team (Late st Contact Info) Description 09/19/2022 Nursing Facility [facility] [address] [place] [address] Luis Tucker, GUNNAR [address] [place] [address] Social History Tobacco Use Types Packs/Day Years Used Date Smoking Tobacco: Every Day Cigarettes Smokeless Tobacco: Never Sex and Gender Information Value Date Recorded Sex Assigned at Not on file Legal Sex Male 2:59 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 male at [facility] for rehabilitation. Prior to coming to rehabilitation facility patient was hospitalized at [facility] from 09/09 through 09/16 or surgical repair of a right femur fracture and also went endarterectomy and angioplasty of his severe arterial occlusive disease in right lower extremity. Subjective: Interval History: Patient is lying comfortably in bed. Says he feels ???good?? . Pain is tolerable. He denies any acute symptoms or concerns. Feels like he is recovering well and is planning on going back home where he lives with his after completion of therapy. He is about to go have a cigarette. Past Medical History Positives Diagnosis Date ??? [...] Objective: Exam: Vital Signs: B/P: 144/80 Pulse: 78 Respirations: 16 Temperature: 97.9 General: Well developed, [...] hemoglobin 8.6 otherwise unremarkable. Imaging: None Assessment/Plan: Closed displaced comminuted fracture of shaft of right femur status post surgical repair Receiving [facility] physical therapy rehabilitation Followed by Ortho Has appointment on 10/24/2021 for follow-up [place] to come out on 10/03 P.r.n. pain medicines and muscle relaxers Peripheral artererial disease Status post endarterectomy and angioplasty of right lower extremity during hospitalization Continue aspirin and statin therapy Is to follow-up with Dr. Snyder about 4 weeks after discharge from hospital. Distal left clavicle fracture Noted to have [...] appear interested in quitting at this time Insomnia Continue trazodone Well controlled VTE Prophylaxis: 09/19: Lovenox 40mg Q24h for the next 1 week I discussed advanced care planning with this patient. Disposition: Patient planning on going home at discharge where he lives with his spouse. This note was dictated using M*Modal fluency dictation system and there may be errors in offbearer. Despite proof reading the note, there may be mistakes and I apologize for those. By: GUNNAR Marrero, 09/19/2022 12:21 PM AUTO BODY MECHANIC BODY MECHANIC documented in this encounter Plan of Treatment Not on file documented as of this encounter Visit Diagnoses Not on filedocumented in this encounter Care Teams Engineering Vice President Relationship Specialty Start Date End Date Sander Griffiths PAC [address] [place] [address] PCP - General Internal Medicine 05/17/18 documented as of this encounter
--- OUTSIDE RECORDS SUMMARY | 2025-04-10 13:41 | XMS_ITS | Encounter Summary ---
Author Organization [facility] Address [address] [place] [address] Phone Care Team Providers Care Kitchen Cleaner Name Role Phone Sander Griffiths Primary Care Provider [phone] Encounter Details Date Type Department Care Team (Late st Contact Info) Description 10/03/[address] 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 male at [facility] for rehabilitation. 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 Subjective: Interval History: Patient is lying comfortably in bed. Says that he feels ???pretty good?? . Still not sleeping well overall. Says that he is falling asleep but having trouble staying asleep. Feels like therapy is going well. Blood sugars have been reasonable so Accu-Cheks will be discontinued. Past Medical History Positives Diagnosis Date ??? [...] Objective: Exam: Vital Signs: B/P: 144/80 Pulse: 68 Respirations: 17 Temperature: 97.9 General: Well developed, well nourished, in no distress - pleasant, well-appearing Skin: Normal appearance, normal turgor, no rashes - 09/19: Wound dressing over right knee is clean dry and intact. [place] in place over incision on anterior proximal [...] as his left foot. Decreased sensation throughout. 10/03: 1+ dorsalis pedis pulse present in right foot, cap refill around 3-4 seconds. Neuro: Non-focal, CN intact, sensory and motor intact Psychological: alert and oriented X3, appropriate mood and affect, Intact judgement and memory Lab Results: 09/15/2022 upon discharge from hospital, BMP was within normal limits, CBC with hemoglobin 8.6 otherwise unremarkable. Imaging: PROCEDURE: DUPLEX LOWER EXTREMITY ARTERIAL UNILATERAL STATUS: Final INTERPRETATION: Reason for Study: R60.9 EDEMA, UNSPECIFIED Principal Result Accountant Assistant: MATILDE PAPPAS ([id number]) Satellite Dish Technician: VIVIANA THORNTON (CJALAFF) Surgical Attendant Satellite Dish Technician: FORREST DUPLEX LOWER EXTREMITY ARTERIAL UNILATERAL, RIGHT See Note FINDINGS: Right Lower Extremity Arterial Duplex Ultrasound: history: peripheral vascular disease findings: multiphasic waveform inflow. Lung segment occlusion proximal the middle femoral artery. Reconstitution distal femoral via collaterals. Monophasic pattern velocities: MANAGER SOUND 23 cm/s proximal femoral one middle femoral zero distal femoral 14 popliteal 18, analysis consultant tibial 11, DP seven CONCLUSION: Moderate to severe inflow disease. Long segment occlusion femoral artery ELECTRONICALLY SIGNED BY MATILDE PAPPAS M.D 09/29/2022 3:41:55 PM INTERIOR DESIGN PROFESSIONAL. Assessment/Plan: Peripheral artererial disease Status post endarterectomy [...] treatment plan and current follow-up on 10/18. 10/03: Vascular exam today is actually better today with a more brisk dorsalis pedis pulse and faster cap refill. Insomnia Continue trazodone 09/22 : Uncontrolled. Will [...] right femur status post surgical repair Receiving [facility] physical therapy rehabilitation Followed by Ortho Has [...] system and there may be errors in shoder filler. Despite proof reading the note, there may be mistakes and I apologize for those. By: Luis Tucker, PAC, 10/03/2022 11:28 AM INTERIOR DESIGN PROFESSIONAL RIOR DESIGN PROFESSIONAL documented in this encounter Plan of Treatment Not on file documented as of this encounter Visit Diagnoses Not on filedocumented in this encounter Care Teams Kitchen Cleaner Relationship Specialty Start Date End Date Sander Griffiths PAC [address] [place] [address] PCP - General Internal Medicine 05/17/18 documented as of this encounter
--- OUTSIDE RECORDS SUMMARY | 2025-04-10 13:41 | XMS_ITS | Encounter Summary ---
Author Organization [facility] Address [address] [place] [address] Phone Care Team Providers Care Senior Manager Asset Protection Name Role Phone Sander Griffiths Primary Care Provider [phone] Encounter Details Date Type Department Care Team (Late st Contact Info) Description 11/04/2022 Nursing Facility [facility] [address] [place] [address] Luis Tucker PAC [address] [place] [address] Social History Tobacco Use Types Packs/Day Years Used Date Smoking Tobacco: Every Day Cigarettes Smokeless Tobacco: Never Sex and Gender Information Value Date Recorded Sex Assigned at Not on file Legal 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 : 1965 Attending Physician: No att. providers found Admission Date/Time: 09/17/2022 Expected Discharge Date: 11/05/2022 Primary Care Physician: GUNNAR DORSEY Discharging Provider: GUNNAR Marrero INSTRUCTIONS FOR PHYSICIANS ON FOLLOW UP AFTER DISCHARGE: Follow-up with PCP in 1-2 weeks. Keep follow-up appointments with Ortho and with vascular surgery. Discharge Instructions: Discharge Condition: significantly improved Disposition: Home Diet: Cardiac Diet Activity: activity as tolerated Discharge Diagnoses: Closed displaced comminuted fracture of shaft of right femur status post surgical repair, peripheral artererial disease, right lower extremity DVT, peripheral neuropathy, insomnia, cigarette smoking, hypertension, alcohol abuse, liver cirrhosis, anemia of chronic disease Admitting Diagnoses: Closed displaced comminuted fracture of shaft of right femur status post surgical repair, peripheral artererial disease, right lower extremity DVT, peripheral neuropathy, insomnia, cigarette smoking, distal left clavicle fracture, hypertension, alcohol abuse, liver cirrhosis, anemia of chronic disease SKILLED CARE COURSE: Gilbert Virgen was admitted to custodial facility for acute care rehabilitation. 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 Upon arrival to facility, patient was noted to have poor circulation of right lower extremity with prolonged cap refill, discoloration of toes, very faint distal pulses. A repeat arterial Doppler wasdone which showed Moderate to severe inflow disease. Long segment occlusion femoral artery. These findings were forwarded to his vascular surgeon who arranged for the patient to be rehospitalized at [facility] from 10/04 through 10/08 for atherosclerosis of bypass graft of right lower extremity where he underwent planned balloon angioplasty to right lower extremity on 10/06/2022. Was found to have a DVT in right lower extremity of the distal popliteal vein and proximal posterior tibial veins. During his stay he was also found to have COVID-19. This was an incidental finding. Fortunately he was completely asymptomatic during his entire infection. While at the rehabilitation facility, the patient received custodial care and physical therapy rehabilitation. The patient has done well with their rehabilitation and has regained enough strength and ambulationthat it is felt that he can safely be discharged. He was followed by Ortho as well during his stay in the facility. He has recovered really well from his orthopedic and vascular issues in his right lower extremity. Today he is not having any pain in his right leg. He was having some neuropathy issues earlier this week, his gabapentin was increased and he says that this has helped significantly. The wounds on hisright lower extremity look much better and appear to be well healing. Today he says he feels ???good?? . Denies any acute symptoms or concerns. He has requested to be discharged tomorrow. He will go back home where he lives alone (unfortunately his became ill and while he was at the facility). His niece is going to come later today and gets some of his items and then come back tomorrow to get him moved in. Exam Day of Discharge: Vital Signs: B/P: 128/78 Pulse: 72 Respirations: 18 Temperature: 98 General: Well developed, well nourished, in no distress - pleasant, well-appearing Skin: Normal appearance, normal turgor, no rashes - 09/19: Wound dressing over right knee is clean dry and intact. Jessica in place over incision on anterior proximal [...] diameter with a dark appearing wound bed. 11/04: Both wounds on distal right lower extremity are well healing, both have a dark overlying scab that is about to fall off and underneath is healthy pink looking wound bed. HEENT: Normocephalic, atraumatic, no flaring Eyes: nonicteric, intact extra occular movement, PERRL Neck: normal, supple, no lymphadenopathy Heart: regular rate and rhythm, S1, S2 normal, no murmur, click, rub or gallop Lungs: clear to ausculation, normal respirations, normal precautions Abdominal: soft, non-tender; bowel sounds normal; no masses, no organomegaly Extremities: no deformities, joint mobility appears intact, no clubbing - trace pitting edema in right lower extremity, none on the left, normal cap refill throughout and good distal pulses throughout. Neuro: Non-focal, CN intact, sensory and motor intact Psychological: alert and oriented X3, appropriate mood and affect, Intact judgement and memory Lab / Imaging Review: Lab Results: 09/15/2022 upon discharge from hospital, BMP was within normal limits, CBC with hemoglobin 8.6 otherwise unremarkable. 10/06/2022 upon discharge from hospital, BMP with sodium 134 otherwise unremarkable. CBC with hemoglobin 8.6 otherwise unremarkable. Imaging: PROCEDURE: DUPLEX LOWER EXTREMITY ARTERIAL UNILATERAL STATUS: Final INTERPRETATION: Reason for Study: R60.9 EDEMA, UNSPECIFIED Principal Result Ground Control Approach Technician: MATILDE PAPPAS ([id number]) Automobile Assembly Supervisor: VIVIANA THORNTON (CJALAFF) Boat Carpenter Mechanic Automobile Assembly Supervisor: FORREST DUPLEX LOWER EXTREMITY ARTERIAL UNILATERAL, RIGHT See Note FINDINGS: Right Lower Extremity Arterial Duplex Ultrasound: history: peripheral vascular disease findings: multiphasic waveform inflow. Lung segment occlusion proximal the middle femoral artery. Reconstitution distal femoral via collaterals. Monophasic pattern velocities: HUMAN RESOURCES CONSULTANT 23 cm/s proximal femoral one middle femoral zero distal femoral 14 popliteal 18, cook chili tibial 11, DP seven CONCLUSION: Moderate to severe inflow disease. Long segment occlusion femoral artery ELECTRONICALLY SIGNED BY MATILDE PAPPAS M.D 09/29/2022 3:41:55 PM REGIONAL BRANCH MANAGER. DISCHARGE PLAN: Patient will be discharging back home tomorrow. Home health and home nursing have been ordered. Understands to continue all current medications as directed and follow up with PCP in 1-2 weeks. This includes Eliquis which was started earlier this month and he will need to be on for at least 3 months. Has follow-up appointments already scheduled for [facility] orthopedics on January 16 and for [facility] vascular surgeon follow-up on January 31, he is to keep these appointments without fail. Had several conversations with the patient about cigarette smoking cessation as this is his most important modifiable risk factor for his peripheral arterial disease. Unfortunately he continues to keep smoking. Has a history of alcoholism, says he does not plan on drinking alcohol anymore. I have spent time coordinating care for this custodial facility discharge: Greater than 30 minutes spent in coordinating care This note was dictated using M*Modal fluency dictation system and there may be errors in ham passer. Despite proof reading the note, there may be mistakes and I apologize for those. Signed: Luis Tucker, [facility], 11/04/2022, 10:21 AM CDT documented in this encounter Plan of Treatment Not on file documented as of this encounter Visit Diagnoses Not on filedocumented in this encounter Care Teams Senior Manager Asset Protection Relationship Specialty Start Date End Date Sander Griffiths PAC [address] [place] [address] PCP - General Internal Medicine 05/17/18 documented as of this encounter
--- OUTSIDE RECORDS SUMMARY | 2025-04-10 13:41 | XMS_ITS | Encounter Summary ---
Author Organization [facility] Address [address] [place] [address] Phone Care Team Providers Care Slag Dumper Name Role Phone Sander Griffiths Primary Care Provider [phone] Reason for Visit * Reason Onset Date Comments Medication Refill 10/21/2022 Encounter Details Date Type Department Care Team (Late st Contact Info) Description 10/21/2022 Refill [facility] [address] [place] [address] Luis Tucker, GUNNAR [address] [place], [place] [id number] Medication Refill Social History Tobacco Use Types Packs/Day Years Used Date Smoking Tobacco: Every Day Cigarettes Smokeless Tobacco: Never Sex and Gender Information Value Date Recorded Sex Assigned at Not on file Legal 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
--- OUTSIDE RECORDS SUMMARY | 2025-04-10 13:41 | XMS_ITS | Clinical Summary ---
Author Organization [facility] Address [address] [place] [address] Care Team Providers Care Bottom Liner Name Role Phone Kyle Ndiaye MD Primary Care Prov ider Kiran Snyder MD Unavailable Juarez Patricia MD Unavailable [phone] Javon Elliott MD Unavailable [phone] Allergies Active Allergy Reactions Criticality Noted Date Comments Cefdinir Hives,Blisters High 05/30/2023 Doxycycline Rash Medium 06/22/2024 Grass Pollen Sneezing Low 11/09/2023 Mite Extract Rhinorrhea Low 01/09/2019 Peanut Swelling Medium 12/04/2017 Sneezing Medications multivitamin with folic acid 400 mcg tablet Take 1 tablet by mouth daily 0 3 Active clopidogreL (PLAVIX) 75 mg tabletIndicati ons:Thrombosis Prevention Take 1 tablet (75 mg total) by mouth daily 30 tablet 3 Active naloxone (NARCAN) 4 mg/actuation spray,non-aero jay CALL 911. ADMINISTER A SINGLE SPRAY INTRANASALLY INTO ONE NOSTRIL UPON SIGNS OF OPIOID OVERDOSE. MAY REPEAT AFTER 3 MINUTES IF NO RESPONSE. 3 Active melatonin tablet Take 1 tablet (3 mg total) by mouth nightly Active aspirin 81 mg chewable tablet Take 1 tablet (81 mg total) by mouth daily 30 tablet 4 Active ferrous sulfate 325 mg (65 mg of elemental iron) tablet Take 1 tablet (325 mg total) by mouth daily with breakfast 4 05/23/20 25 Active metoprolol tartrate (LOPRESSOR) 50 mg immediate release tablet Take 1 tablet (50 mg total) by mouth 2 (two) times a day 05/23/20 Active cyanocobalamin (Vitamin B-12) 1,000 mcg tablet Take 1 tablet (1,000 mcg total) by mouth daily 05/23/20 Active atorvastatin (LIPITOR) 80 mg tablet Take 1 tablet (80 mg total) by mouth nightly 05/23/20 Active cyclobenzaprin e (FLEXERIL) 5 mg tablet Take 1 tablet (5 mg total) by mouth 2 (two) times a day as needed for muscle spasms Active gabapentin (NEURONTIN) 300 mg capsuleIndicat ions:Neuropath ic Pain Take 1 capsule (300 mg total) by mouth 3 (three) times a day 06/28/20 Active nicotine (NICODERM CQ) [address] 1 patch on the skin daily 4 Active Additional Information Patient not taking.Reported on 03/27/2025 polyethylene glycol (MIRALAX) 17 gram/dose bulk powderIndicati ons:constipati on Take 17 g by mouth daily 4 Active senna (SENOKOT) 8.6 mg tablet Take 1 tablet by mouth 2 (two) times a day as needed for constipation 4 Active ramelteon (ROZEREM) 8 mg tabletIndicati ons:Sleep-Onse t Insomnia Take 1 tablet (8 mg total) by mouth nightly as needed for sleep 06/28/20 Active Additional Information Patient not taking.Reported on 03/27/2025 HYDROcodone-ac etaminophen (NORCO) 5-325 mg per tabletIndicati ons:Pain Take 1 tablet by mouth every 6 (six) hours as needed Active gentamicin (GARAMYCIN) 0.1 % cream 5 Active doxycycline hyclate 100 mg capsule 5 Active cloNIDine (CATAPRES) 0.1 mg tablet Take 1 tablet (0.1 mg total) by mouth 2 (two) times a day as needed for high blood pressure (SBP > 160 mmHg) 5 Active hydroCHLOROthi azide (HYDRODIURIL) 25 mg tablet Take 1 tablet (25 mg total) by mouth daily 5 Active predniSONE (DELTASONE) 10 mg tablet 5 Active amLODIPine (NORVASC) 10 mg tablet Take 1 tablet (10 mg total) by mouth daily Active gentamicin (GARAMYCIN) 0.1 % cream Apply topically 3 (three) times a day To the wound 15 g 3 5 04/18/20 25 Active ciprofloxacin (CIPRO) 500 mg tabletIndicati ons:Skin/Soft Tissue Infection Take 1 tablet (500 mg total) by mouth 2 (two) times a day for 14 days 28 tablet 5 04/02/20 25 Active Problems Patient Care Coordination No te Formatting of this note migh t be different from the original. Mechanism of Injury: Fell at Rehab Facility- Referral from 01/22/25 Dx: Left scapula glenoid fossa fx. Surgeries: None Upcoming Clinic Visit: 01/24/25 XR's Left Scapula Does Insurance Qualify for In Clinic PT? NO [facility]- [place] Problem Noted Date Diagnosed Date Peripheral vascular disease of lower extremity with ulceration 08/09/2024 Assessment & Plan (08/16/2024 7:16 AM SECRET SERVICE AGENT): - CTA of right lower extremity showed two-vessel runoff to the right ankle via the anterior tibial andperoneal arteries. The posterior tibial artery is nonopacified nearits takeoff from the tibioperoneal trunk.Multifocal ulceration in the right lower extremity, the largest of which is along the lateral aspect of the leg. The lateral myofascial compartment appears exposed at the level of ulceration with periosteal reaction of the adjacent fibula, which can be seen with reactive changes of developing osteomyelitis. - Continue broad-spectrum antibiotics for now: Per ID stewardship, no hx of MRSA, ok to dc Vanc. Continue Cefepime and Flagyl for now. - Continue aspirin, statin. Restarted plavix - s/p ABIs - 08/15: s/p angio with angioplasty of R AT, shockwave and DCB of popliteal, superficial debridement of RLL wound - Wound RN consulted: reny kaminski, NS dampened gauze, cover w/ dry dressing - on Ceftriaxone for LE wound transition to keflex at discharge - PT/OT - OK to DC back to facility Wound of right leg 06/27/2024 Assessment & Plan (06/28/2024 7:52 AM SECRET SERVICE AGENT): -wound nurse consulted, recommended to right lutz/tibia venous ulcer: cleanse with 10 minute soak of Vashe dampened gauze, cover with PolyMem pink MAX including at least 1/4 inch williams-wound skin, and secure with rolled gauze and/or Medipore tape. Perform wound care every 3 days and prn dressing saturation. Chronic ulcer of great toe o f left foot with necrosis of bone 06/25/2024 Assessment & Plan (06/28/2024 7:50 AM SECRET SERVICE AGENT): WBC ~20 with ESR 140 at OSH. C/f osteomyelitis on 5th metatarsal. Previously with MSSA, GBS, Pseudomonas in wound cultures. - ID following - Started on cefepime 2g IV q12h, linezolid 600 mg po BID, metronidazole 500 mg po TID, stopped post op - OR on 06/25 for BKA - Pain control - OK for OOB, PT/OT. PT recommends IPR, back to previous facility at discharge - [facility] pending Subclinical hypothyroidism 06/25/2024 Assessment & Plan (06/25/2024 1:05 PM SECRET SERVICE AGENT): TSH 4.77 with fT4 1.48 - F/u outpatient Carotid artery stenosis 06/25/2024 Assessment & Plan (06/28/2024 7:48 AM SECRET SERVICE AGENT): Hospitalized with RUE weakness in 05/01 with severe b/l carotid artery stenosis on CTA head 04/27/24 with stenosis >90% b/l similar to 10/2023. Patient not a candidate for endarterectomy. RUE improved from last admission per patient. bMRI with encephalomalacia of left basal ganglia and punctate foci in right jeffrey radiata. -Fall precautions -PT/OT NSVT (nonsustained ventricular tachycardia) 06/07 Assessment & Plan (06/28/2024 7:51 AM SECRET SERVICE AGENT): History. In 05/2024 requiring metop 200 mg - Metoprolol 50 mg BID Transient alteration of awareness 06/25/2024 Assessment & Plan (06/27/2024 8:41 AM SECRET SERVICE AGENT): Altered on 06/17 AM at his nursing facility. Reportedly pulseless and apneic. CPR started and patient awoke quickly. Unknown if he truly arrested.; CTH and CT PE unremarkable. Free T4 wnl. Folate and B12 wnl. HIV in 04/30 negative. Unclear etiology. - CTM - Caution with sedating medications. Multiple open wounds of left lower extremity Alcoholism 05/16/2024 RUE weakness 05/10/2024 Assessment & Plan (05/20/2024 8:11 AM CDT): Initially presented to OSH for acute RUE weakness, transferred to NNICU d/t concern for ischemic etiology given significant carotid stenosis, however imaging not c/w acute infarct. Eventually transferred to Neuro floor on 05/06. - Per Neuro: imaging findings and history concerning for acute/subacute myelopathy of the cervical spine - Neurosurgery consulted in ICU for C5-7 stenosis, which was managed non- operatively with observation. C5-7 ACDF was offered but he declined d/t need for holding antiplatelet therapy for at least 10 days preoperatively and then for some time postoperatively, which the patient declined b/c of fear of losing his limb. It was explained to the patient that he might not have improvement in his motor function or worsening without the surgery which the patient understood. - NSGY signed off. Recommending he f/u if he decides he wants surgery in the future. - 05/09: Transferred from Neuro to [facility] - Refusing C-collar recommended by Neuro - PT/OT rec inpatient rehab. He has been accepted to facility once he is medically ready for dc. CM following. - Reported right hand neuropraxia on 05/16, PRS hand team evaluated this AM. Plan continued monitoring, remove Ivs from hand, OT for splint as PRS thinks he can still recover function Anemia 05/10/2024 Assessment & Plan (05/16/2024 8:47 AM CDT): Multifactorial, likely 2/2 iron deficiency, B12 deficiency, ETOH, chronic dz, OR losses - Received total of 2U pRBC in NNICU - Continue weekly B12 - Monitor CBC Moderate protein-calorie malnutrition 04/29/2024 Encounter for screening colonoscopy 01/30/2024 PAD (peripheral artery disease) 11/09/2023 Assessment & Plan (06/28/2024 7:52 AM SECRET SERVICE AGENT): S/p R iliofem endarterectomy with patch angioplasty, R SFA stent and SFA/pop DCB and left fem endarterectomy, R EIA stent, R SFA & AT shockwave lithotripsy. OSH radiology with multifocal severe stenoses vs focal occlusions distally. -Cont home atorvastatin 80 mg, ASA, plavix -Q4 NV checks Mixed hyperlipidemia 10/01/2023 Tobacco abuse 10/01/2023 Assessment & Plan (11/09/2023 9:25 AM CDT): - college admissions counselor on smoking cessation - NRT if needed Carotid stenosis, bilateral 09/26/2023 Assessment & Plan (05/16/2024 8:26 AM CDT): CTA at OSH prior to admission on 04/27 showing very severe bilateral carotid stenosis approaching 100%, particularly on the left similar to 10/11/2023 study. Was seen previously by Dr. Elliott, noting that he was not an ideal candidate for endovascular intervention of carotids. Recommended DAPT and statin for medical therapy. - Continue asa 81 + plavix 75 mg - Atorvastatin 80 mg nightly Assessment & Plan (11/10/2023 10:30 AM CDT): - Continue ASA and statin - /4: s/p Diagnostic neuroangiogram with diffuse calcified lesion in R CCA/ICA and stenosis of L CCA at the origin. DVT (deep venous thrombosis) 10/06/2022 Assessment & Plan (11/10/2023 10:30 AM CDT): - Hx of DVT, previously on eliquis. - continue heparin dvt ppx Assessment & Plan (10/07/2022 11:16 AM SECRET SERVICE AGENT): - Vein mapping noted to be positive for acute DVT in the right lower extremity. Deep veins involved include the distal popliteal vein (1 of 2) and proximal posterior tibial veins - Heparin gtt pre-op. Lovenox -> NOAC at DC, awaiting [place] check Hyponatremia 10/05/2022 Assessment & Plan (10/06/2022 8:02 AM SECRET SERVICE AGENT): - Na 132 on admit. Possibly 2/2 mild volume depletion? ETOH use? - Na 130 on 10/06; free water restriction - Ranged from 128-139 over the last 30 days - BMP daily PVD (peripheral vascular disease) 10/04/2022 Assessment & Plan (05/23/2024 8:02 AM CDT): Hx of R iliofem endart w/patch angioplasty, R SFA stent & SFA/pop DCB (10/06/22,Claudio) and left fem endart, R EIA stent, R SFA & AT shockwave lithotripsy for chronic right leg/heel wounds. Has had persistent rest pain since January and was told he was high risk for limb loss with no suitable options for revascularization. Major limb amputation was discussed with him at that time, which he adamantly refused. The plan was for repeat US ERIC and left lower extremity US arterial duplex in 3 months but he missed f/u d/t presenting to hospital. - Vascular consulted on 05/07 - ERIC 05/08: R 0.92 (96), L 0.73 (23) - LLE arterial duplex 05/08: persistent L SFA occlusion - CTA 05/09: left PT and peroneal runoff - Transferred to [facility] with plans for LLE angio 05/14. Continues to refuse amputation. - Q4 NV/VS - 05/15: OR for LLE angiogram thru R RESIDENT CARE MANAGER RN access (6Fr closed with manual pressure); shockwave IV-lithotripsy of L SFA, popliteal and TP trunk, angioplasty and stenting of L external iliac SFA, POP, TP trunk IVUS - Podiatry recommended NO wound debridement and daily dressing changes - LLE pain improved, pain controlled with multimodal pain regimen - Continue ASA, plavix, statin - PT/OT recommended IPR but insurance denied. CM assisting with safe discharge plan Assessment & Plan (11/10/2023 10:27 AM CDT): S/p right femur IMN and right iliofemoral endarterectomy and patch angioplasty on 09/09/[address] Snyder. He had known multilevel vascular disease prior to intervention but complained of worsening symptoms over the few weeks before intervention. At the end of the case, the SFA remained occluded with in-line flow into the profunda. He was discharged and returned about a month later for angiogram with right SFA stent angioplasty, SFA and popliteal DCB angioplasty via retrograde pedal approach and 10/06. He did not follow up. Patient has right calf wound. 11/08: s/p left femoral endarterectomy and right external iliac artery stent, R pop/AT shockwave and DCB, and AT angioplasty - DC OU, nicholas catheter - bedrest completed, OOB, PT/OT - Q4 VS/NV - Continue ASA and statin - pain control - Received plavix in PACU, continue daily - wound care consult for R calf wound Assessment & Plan (10/08/2022 9:09 AM SECRET SERVICE AGENT): During recent admit, c/o RLE pain and noted to have absent R pedal signals. CTA showed long segment occlusion of the SFA on the right and severe multifocal atherosclerotic disease w/ 3vessel runoff. He was ultimately taken emergently to the OR with Ortho and Vascular on 09/09 for rIMN and right femoral endarterectomy w/ patch angioplasty and RLE angio, was unable to cross the SFA lesion at that time which was completely occluded. He represents preoperatively for planned angiogram of RLE with pedal access. Has R heel wound with eschar and small draining R ankle wound. R groin healing well. - CTA 10/04: RLE with interval opacification of the right common femoral artery likely related to recent endarterectomy with otherwise persistently occluded superficial femoral and proximal popliteal arteries with distal reconstitution. Also w/ occlusion of the proximal calf arteries with distal reconstitution and two-vessel runoff across the ankle. Left lower extremity: Unchanged occlusion of the left superficial femoral artery with moderate to severe multifocal stenosis within the remaining lower extremity and two-vessel runoff across the ankle - calcaneal x-ray w/o osteo - continue statin - OR for angiogram planned for 10/[address] Snyder. - IPAP consulted; OK for OR without further workup - wound consult for RLE wounds, paint with betadine daily, leave RESORT MANAGER - Pain control with POPM - OR 10/06/22 -> Plain and drug-coated balloon angioplasty of right superficial femoral artery and politeal artery + right superficial femoral artery stent placement using a 6 mm x 200 mm everflex + Diagnostic right tibial and pedal angiography via pedal approach - Plavix + NOAC at DC Cirrhosis of liver without ascites 10/04/2022 Assessment & Plan (06/28/2024 7:51 AM SECRET SERVICE AGENT): Hx of alcohol use. Hep C Ab positive, RNA negative. No treatment. Cirrhosis noted on imaging in 09/2022. Patient without jaundice or icterus. - CTM for sequela of cirrhosis Assessment & Plan (10/04/2022 11:17 AM SECRET SERVICE AGENT): Likely 2/2 HCV and ETOH abuse. Compensated. -continue outpatient f/u. COVID 10/04/2022 Assessment & Plan (10/04/2022 2:45 PM SECRET SERVICE AGENT): Asymptomatic testing upon admission was positive. - Quarantine per protocol, monitor for development of symptoms. Atherosclerosis of bypass gr aft of right lower extremity with ulceration of heel 10/03/2022 Overview (10/03/2022): Added automatically from request for surgery [id number] Closed displaced comminuted fracture of shaft of right femur 09/09/2022 Overview (09/09/2022): Added automatically from request for surgery [id number] Assessment & Plan (11/10/2023 10:31 AM CDT): - S/p rIMN 09/09/22. - PT/OT Assessment & Plan (10/06/2022 7:59 AM SECRET SERVICE AGENT): - s/p rIMN 09/09. - CTA showing healing fractures - f/u with Ortho trauma as scheduled. - WBAT. - Continue PT/OT. Fall, initial encounter 09/09/2022 Drug withdrawal seizure without complication Closed stable burst fracture of first lumbar vertebra with routine healing 12/26/2020 Acute pain 12/26/2020 Assessment & Plan (08/12/2024 9:46 AM SECRET SERVICE AGENT): - Continue multimodal pain control with acetaminophen, gabapentin, prn flexeril, and prn oxycodone Closed fracture of two ribs, right, initial enco unter 12/26/2020 Hyponatremia 12/26/2020 Anemia, chronic disease 12/26/2020 Assessment & Plan (08/14/2024 7:38 AM SECRET SERVICE AGENT): Hgb improved from admission in June. - daily CBC, hgb stable in 10s. Assessment & Plan (06/28/2024 7:48 AM SECRET SERVICE AGENT): Hb 9.8, MCV 80.9. Iron studies (06/23): Fe 30 (L), ferritin 310, TIBC 162 (L), Tsat 19% (L) c/w anemia of chronic disease. 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 Resume amlodipine 2.5 mg daily Assessment & Plan (05/23/2024 7:59 AM CDT): On home amlodipine 2.5 mg daily, lisinopril 40 mg daily, metoprolol 200 mg daily. - Continue metoprolol 50 mg BID and amlodipine 2.5 mg today - Continue holding lisinopril, restart as able - Q4 VS Assessment & Plan (11/10/2023 10:29 AM CDT): - VS Q4 hrs and PRN - home regimen: lisinopril 40 and metoprolol XL 200 as able. - 4/5: resumed metoprolol as 100 bid, resume lisinopril at half dose 20mg daily. Increase to home dose if Cr remains stable and BP allows. Assessment & Plan (10/04/2022 11:06 AM SECRET SERVICE AGENT): -continue home metoprolol and lisinopril -monitor bp Resolved Problems Problem Noted Date Diagnosed Date Resolved Date Dysphagia 05/10/2024 05/23/2024 Assessment & Plan (05/20/2024 7:59 AM CDT): RESOLVED - Evaluated by OPTOMETRIST OWNER - Required tube feeds in ICU, dc'd prior to transfer to floor. - 05/10: passed MBS. Ok for regular diet/liquids per OPTOMETRIST OWNER. Wounds, multiple open, lower extremity 05/10/2024 06/25/2024 Assessment & Plan (05/20/2024 8:12 AM CDT): Chronic wounds to BLE. Now with worsening wound/discoloration to L foot. Refuses amputation. - See PVD - Continue wound care, wound nurse following - Completed course of abx in ICU - Bilateral tibial and ankle x-rays obtained to r/o osteo. - L foot x-ray limited but no osseous lesions seen - Evaluated by Dr. Hawkins. No plan to debride left foot at this time. Continue to paint with betadine. Continue care of leg wounds, cleanse with vashe and cover with polymem Shock 04/29/2024 05/20/2024 Assessment & Plan (05/16/2024 8:46 AM CDT): RESOLVED C/f culture negative sepsis in ICU. Had leukocytosis which resolved on 05/01. Blood cultures, tracheal aspirate, CSF cultures, and urine cultures all without growth. ID was consulted. Was on empiric antibiotics with Levofloxacin (04/28), Vancomycin/Meropenem (04/28-04/30), and Unasyn (04/30-05/02). - eventually attributed to ETOH withdrawal Acute blood loss anemia 11/09/2023 04/0 11/2023 Alcohol abuse with withdrawal 12/25/2020 05/23/2024 Assessment & Plan (05/20/2024 7:56 AM CDT): RESOLVED.Hx of withdrawal seizures. Had AMS, SVT, and fevers in ICU, which were attributed to opiate/alcohol withdrawal. Required intubation and treatment with propofol and IV metoprolol for SVT. - Sepsis workup was negative, imaging neg for acute intracranial etiology, EEG neg - S/p CIWA protocol in NNICU, requiring ativan and intermittent precedex. Received high-dose thiamine. - Continue thiamine 100 mg daily, folic acid 1 mg daily, MVI 1 tab daily - Weaned off clonidine. Assessment & Plan (11/10/2023 10:14 AM CDT): Currently no s/s of ETOH withdrawal - continue AWAS protocol - daily PO folic acid and thiamine x5 days - monitor closely Assessment & Plan (10/05/2022 10:08 AM SECRET SERVICE AGENT): Denies any recent ETOH use. No ETOH withdrawal during recent admit. Currently no s/s of withdrawal. -CIWA protocol -encourage cessation Encounters Date Type Department Care Team Description 04/01/2025 2:05 PM CDT - 04/01/2025 4:25 PM CDT Hospital Encounter [facility] [address] [place] [address] Miko Richmond MD Discharge Disposition: Discharge to a nursing facility medicaid certified 03/31/2025 2:30 PM CDT Orders Only [facility] [address] [place] [address] 03/28/2025 Documentation [facility] [address] [place] [address] [address] [place] [address] Miko Richmond MD IV Antibx ([place]) 03/27/2025 12:30 PM CDT [facility] [address] [facility] [address] [place] [address] Miko Richmond MD Non-pressure chronic ulcer of other part of right lower leg with fat layer exposed (Primary Dx); Pseudomonas aeruginosa infection 03/24/2025 2:00 PM CDT Orders Only [facility] [address] [place] [address] 03/17/2025 3:15 PM CDT Orders Only [facility] [address] [place] [id number] Venous stasis ulcer of other part of right lower leg with muscle involvement without evidence of necrosis, unspecified whether varicose veins present (HCC) (Primary Dx); Infectious disease due to multiple organisms 03/10/2025 2:00 PM CDT Orders Only [facility] [address] [place] [address] PAD (peripheral artery disease) (Primary Dx); Multiple open wounds of left lower extremity, initial encounter 03/10/2025 1:15 PM CDT Office Visit [place] [facility] [address] [facility] [address] [place] [id number] Ana Lilia Hastings NP Primary hypertension (Primary Dx); Mixed hyperlipidemia; Chest pain, unspecified type 03/03/2025 1:45 PM CDT Orders Only [facility] [address] [place] [address] 02/25/2025 2:15 PM CDT Orders Only [facility] [address] [place] [address] 02/18/2025 2:30 PM CDT Orders Only [facility] [address] [place] [address] 02/17/2025 2:45 PM CDT Office Visit [facility] [address] [place] [address] Medical Office Building [address], [place] [address] Javon Elliott MD Carotid stenosis, bilateral (Primary Dx); Atherosclerosis of [place] artery of right leg with ulceration of calf (HCC) 02/17/2025 11:03 AM CDT - 02/17/2025 11:59 PM CDT Hospital Encounter [facility] [address] [place] [address] Encounter for surgical aftercare following surgery on the circulatory system Discharge Disposition: Discharge to home or self care 02/17/2025 11:03 AM CDT - 02/17/2025 11:59 PM CDT Hospital Encounter [facility] [id number] [place] [address] Carotid stenosis, bilateral Discharge Disposition: Discharge to home or self care 02/17/2025 11:00 AM CDT - 02/17/2025 11:59 PM CDT Hospital Encounter [facility] [address] [place] [address] Encounter for surgical aftercare following surgery on the circulatory system Discharge Disposition: Discharge to home or self care 02/10/2025 3:30 PM CDT Orders Only [facility] [address] [place] [address] 02/03/2025 3:30 PM CDT Orders Only [facility] [address] [place] [address] 01/27/2025 3:15 PM CDT Orders Only [facility] [address] [place] [address] 01/24/2025 2:30 PM CDT [facility] [address] [place] [address] 4th Floor [address] [place] [address] Closed fracture of rim of glenoid fossa of left scapula, initial encounter (Primary Dx) 01/24/2025 2:15 PM CDT - 01/24/2025 11:59 PM CDT Hospital Encounter [facility] Radiology [address] [place] [address] Closed fracture of rim of glenoid fossa of left scapula, initial encounter Discharge Disposition: Discharge to home or self care 01/22/2025 Telephone [facility] [address] [facility] Outpatient [facility] 4th Floor [address] [place] [phone] Mariza Cameron, TESSY 01/22/2025 Telephone [facility] [address] [facility] 4th Floor [address] [place] [phone] Tanvi Daley, TESSY 01/22/2025 Orders Only [facility] Orthopaedic Surgery [address] [facility] 6th [place] [address] [place] [address] Windy Hogan RN Acute pain of left shoulder (Primary Dx) 01/21/2025 Orders Only [facility] Medical [facility] Orthopedics and Sports Medicine [address] [facility] [address] [place] [address] Xenia Ortiz MD 01/21/2025 Telephone [facility] Medical [facility] Orthopedics and Sports Medicine [address] [facility] [address] [place] [address] Jil Last MA 01/20/2025 3:00 PM CDT Orders Only [facility] [address] [place] [address] 01/17/2025 3:14 PM CDT - 01/17/2025 11:59 PM CDT Hospital Encounter [facility] 1 [place] [address] PAD (peripheral artery disease); Multiple open wounds of left lower extremity, initial encounter Discharge Disposition: Discharge to home or self care 01/17/2025 2:00 PM CDT Orders Only [facility] [address] [place] [address] Ulcer of right lower extremity with muscle involvement without evidence of necrosis (HCC) (Primary Dx) 01/15/2025 2:15 PM CDT Orders Only [facility] [address] [place] [address] 01/13/2025 2:30 PM CDT Orders Only [facility] 1 [place] [address] 01/10/2025 2:00 PM CDT Orders Only [facility] 1 [place] [address] from Last 3 Months Immunizations Immunization Administration Dates Next Due Influenza, Trivalent, Preservative Free, Intramu scular 05/07/2024 Influenza, Unspecified 05/07/2022 Tdap 12/27/2018 Surgical History Surgery Date Site/Laterality Comments FRACTURE SURGERY 09/09/2022 Right IM nail femur w/vascular surgery VASCULAR SURGERY 09/09/2022 Right right femoral endarterectomy w/ patch angioplasty and RLE angio, with IM nail HERNIA REPAIR as an infant KNEE SURGERY Left pinning knee OTHER SURGICAL HISTORY to cheek COLONOSCOPY 10/29/2024 Medical History Medical History Date Comments Alcohol abuse Hypertension Alcoholism (HCC) 12/25/2020 Alcoholic cirrhosis of liver without ascites (HC C) 12/26/2020 Iron deficiency anemia 12/26/2020 Family History Medical History Relation Name Comments Anesthesia problems Neg Hx Malig Hyperthermia Neg Hx Pseudochol deficiency Neg Hx Social History Tobacco Use Types Packs/Day Years Used Date Smoking Tobacco: Every Day Cigarettes 0.5 55.7 Started: 1970 Smokeless Tobacco: Never Tobacco Cessation:Ready to Q uit: Not Asked; Counseling Given: Not Answered [facility] Utilities Answer Date Recorded In the past 12 months has e electric, gas, oil, or water company threatened to shut off services in your home? No 08/10/2024 Social Connection and Isolation Panel Answer Date Recorded In a typical week, how many times do you talk on the phone with family, friends, or neighbors? Three times a week 08/10/2024 How often do you get togethe r with friends or relatives? Three times a week 08/10/2024 How often do you attend chur ch or roman catholic services? Never 08/10/2024 Do you belong to any clubs o r organizations such as jehovah's witness groups, unions, fraternal or athletic groups, or school groups? No 08/10/2024 How often do you attend meet ings of the clubs or organizations you belong to? Never 08/10/2024 Are you , , di vorced, , never , or living with a partner? Never 08/10/2024 AUDIT-C Answer Date Recorded Q1: How often do you have a drink containing alc ohol? Monthly or less 10/25/2024 Q2: How many drinks containi ng alcohol do you have on a typical day when you are drinking? 3 or 4 10/25/2024 Q3: How often do you have si x or more drinks on one occasion? Never 10/25/2024 Overall Financial Resource Strain (CARDIA) Answe r Date Recorded How hard is it for you to pa y for the very basics like food, housing, medical care, and heating? Not very hard 08/10/2024 PHQ-2 Answer Date Recorded PHQ-2 Total Score 0 08/10/2024 Hunger Vital Sign Answer Date Recorded Within the past 12 months, y ou worried that your food would run out before you got the money to buy more. Never true 08/10/19 25 Within the past 12 months, t he food you bought just didn't last and you didn't have money to get more. Never true 08/10/2024 PRAPARE - Transportation Answer Date Re corded In the past 12 months, has l ack of transportation kept you from medical appointments or from getting medications? No 11/2024 In the past 12 months, has l ack of transportation kept you from meetings, work, or from getting things needed for daily living? No 08/10/2024 Housing Stability Vital Sign Answer Ed e Recorded In the last 12 months, was t here a time when you were not able to pay the mortgage or rent on time? No 10/06/2022 In the last 12 months, how many places have you lived? 1 10/06/2022 In the last 12 months, was t here a time when you did not have a steady place to sleep or slept in a retirement (including now)? No 10/06/2022 PHQ-9 Answer Date Recorded PHQ-9 Total Score 0 05/07/2024 Housing Stability Vital Sign Answer Ed e Recorded In the last 12 months, was t here a time when you were not able to pay the mortgage or rent on time? No 08/10/2024 In the past 12 months, how m any times have you moved where you were living? 0 08/10/2024 At any time in the past 12 m [facility], were you homeless or living in a retirement (including now)? No 08/10/2024 Personal Safety Answer Date Recorded Have you ever been in or are you currently in a harmful physical or emotional relationship or is someone making you feel afraid or unsafe? Denies 10/29/2024 Sex and Gender Information Value Date Recorded Sex Assigned at Not on file Legal Sex Male 4:16 PM [employer] SERV[employer] Gender Identity Not on file Sexual Orientation Not on file Obstetrics History Last Filed Vital Signs Vital Sign Reading Time Taken Comments Blood Pressure 132/74 04/01/2025 2:10 PM CDT Pulse 66 04/01/2025 2:10 PM CDT Temperature 36.6 C (97.9 F) 04/01/2025 2:10 PM CDT Respiratory Rate 16 04/01/2025 2:10 PM CDT Oxygen Saturation 96% 04/01/2025 2:10 PM CDT Inhaled Oxygen Concentration - - Weight 110.7 kg (244 lb) 03/27/2025 12:48 PM CDT Height 182.9 cm (6') 03/27/2025 12:48 PM CDT Body Mass Index 33.09 03/27/2025 12:48 PM CDT Plan of Treatment Upcoming Encounters Date Type Department Care Team (Late st Contact Info) Description 04/17/2025 8:30 AM CDT Hospital Encounter [facility] Cardiology 1 [place] [address] 04/17/2025 10:30 AM CDT Hospital Encounter [facility] 1 [place] [address] Health Maintenance Due Date Last Done Comments Prostate Cancer Screening-PSA 1965 Hepatitis B Screening 02/04/1982 Regular Well Visit/Exam 18-64 02/04/1982 Pneumococcal vaccine <65 (1 of 2 - PCV) 02/04/1983 Lung Cancer Screening 02/04/2014 Zoster Vaccine (1 of 2) 02/04/2014 Influenza Vaccine (#1) 2025 05/07/2024, 2021 Depression Screening 08/09/2025 08/09/2024, 04/27/2024, 04/27/2024, Additional history exists DTaP/Tdap/Td Vaccine (2 - Td or Tdap) 12/27/2028 12/27/2018 Colon Cancer Screening-Colonoscopy 10/29/2034 10/29/2024 Hepatitis C Screening Completed 04/28/2024 , 04/28/2024, 04/28/2024 Colon Cancer Screening-CT Colonography Discontinued 10/29/2024 Colon Cancer Screening-DNA Stool Discontinued 10/30/19 Colon Cancer Screening-FIT Discontinued 10/29/2024 Colon Cancer Screening-Sigmoidoscopy Discontinued 10/29/2024 Medical Devices Implanted Type Area Deckhand Clam Dredge Device Identifier Shelf Expiration Date Model / Serial / Lot [employer] Patch Vascuguard 0.88cm [id number] - S0 - [id number] Implanted:Qty: 1 on 11/09/2023 by Javon Elliott MD at [facility] Graft Left: Femoral [employer] Eddie [id number] 05/08/2024 [id number] / 0 / [id number]- [id number] Medtronic Inc Everflex 6mm 200mm 120cm Self Expand Delivery Catheter System [id number] 20 - S00 - [id number] Implanted:Qty: 1 on 10/06/2022 by Kiran Snyder MD at [facility] Stent Right: Superficial Femoral Artery Medtronic Inc [id number] 11/11/2024 WXH46-58 -200-120 / 00 / [id number] Medtronic Inc Protege Gps Exprt 9mm .079in 60mm 80cm Otw Delivery System Self Neez10-43-28-2 0 - [id number] Implanted:Qty: 1 on 11/09/2023 by Javon Elliott MD at [facility] Stent Right: External Iliac Artery Medtronic Inc [id number] 07/07/2026 WSHO52-1 9-60-80 / / [id number] Rae V[employer] Supera 5mm 6fr 120mm 120cm Peripheral Stent Vascular X-74-759-120-P 6 - [id number] Implanted:Qty: 1 on 05/15/2024 by Javon Elliott MD at [facility] Stent Left: Popleteal Artery [employer] [id number] 03/06/2025 S-50-120 -120-P6 / / [id number] [employer] Supera 5.5mm 6fr 150mm 120cm Otw Self Expandable Closed End Braid B-90-634-120-P 6 - [id number] Implanted:Qty: 1 on 05/15/2024 by Javon Elliott MD at [facility] Stent Left: Popleteal Artery [employer] 02/03/2026 S-55-150 -120-P6 / / [id number] Rae [employer] Supera 5.5mm 6fr 100mm 120cm Otw Self Expandable Radiopaque Latex Free U-56-613-120-P 6 - [id number] Implanted:Qty: 1 on 05/15/2024 by Javon Elliott MD at [facility] Stent Left: Popleteal Artery [employer] 02/03/2026 S-55-100 -120-P6 / / [id number] [employer] Inc Zilver Ptx 6mm 140mm 125cm Otw Drug Elute Delivery System [id number] - [id number] Implanted:Qty: 1 on 05/15/2024 by Javon Elliott MD at [facility] Stent Left: Popleteal Artery [employer] [id number] 02/11/2026 [id number] / / [id number] Medtronic Inc Everflex Entrust 6mm 40mm 120cm Self Expand Triaxial Low Profile - [id number] Implanted:Qty: 1 on 05/15/2024 by Javon Elliott MD at [facility] Stent Left: Superficial Femoral Artery Medtronic Inc [id number] 01/28/2027 AFG93-92 -040-120 / / [id number] Medtronic Inc Everflex Entrust 8mm 60mm 120cm Self Expand Triaxial Low Profile - [id number] Implanted:Qty: 1 on 05/15/2024 by Javon Elliott MD at [facility] Stent Left: External Iliac Artery Medtronic Inc [id number] 08/16/2026 JDY33-31 -060-120 / / [id number] Leg Stent Left: Leg Description:Stent placed 3 y ears ago, unsure of where at within the leg Mortar Data Vascu-Guard 8x.8cm Peripheral Patch Vascular Bovine Pericardium Vg-0108n - [id number] Implanted:Qty: 1 on 09/09/2022 by Kiran Snyder MD at [facility] Right: Groin Mortar Data [id number] 05/16/2023 VG-0108N / / [id number]- [id number] Synthes Nail Retrograde Fem 10mm 420mm 5 Deg Bend Titanium Sterile 04.233.042s - [id number] Implanted:Qty: 1 on 09/09/2022 by Shante Graff MD at [facility] Right: Femur Synthes I 04.233.0 42S / / Synthes Screw Locking Im Nail 5mm 80mm 04.045.080 - [id number] Implanted:Qty: 2 on 09/09/2022 by Shante Graff MD at [facility] Right: Femur Synthes I 04.045.0 80 / / Screw Locking Im Nail 5mm 84mm - [id number] Implanted:Qty: 1 on 09/09/2022 by Shante Graff MD at [facility] Right: Femur Synthes I 04.045.0 84 / / Synthes Screw Locking Im Nail 5mm 58mm 04.045.058 - [id number] Implanted:Qty: 1 on 09/09/2022 by Shante Graff MD at [facility] Right: Femur Synthes I 04.045.0 58 / / Screw Locking Im Nail 5mm 38mm - [id number] Implanted:Qty: 1 on 09/09/2022 by Shante Graff MD at [facility] Right: Femur Synthes I 04.045.0 38 / / Synthes Screw Locking Im Nail 5mm 48mm 04.045.048 - [id number] Implanted:Qty: 1 on 09/09/2022 by Shante Graff MD at [facility] Right: Femur Synthes I 04.045.0 48 / / Explanted Type Area Deckhand Clam Dredge Device Identifier Shelf Expiration Date Model / Serial / Lot Screw Locking Im Nail 5mm 52mm - [id number] Explanted:Qty: 1 on 09/09/2022 by Shante Graff MD at [facility] Right: Femur Synthes I 04.045.052 / / Procedures Procedure Name Priority Date/Time Associated Diagnosis Comments PROTIME-INR STAT 04/01/2025 2:32 PM CDT CBC WITHOUT DIFFERENTIAL STAT 04/01/2025 2:32 PM CDT APTT STAT 04/01/2025 2:32 PM CDT TISSUE AEROBIC AND ANAEROBIC CULTURE AND GRAM STAIN Routine 03/10/2025 3:21 PM CDT US ARTERIAL DUPLEX LOWER EXTREMITY RIGHT LIMITED Schedule Routine, Read Routine (OP Routine) 02/17/2025 2:34 PM CDT Encounter for surgical aftercare following surgery on the circulatory system US ARTERIAL DOPPLER LOWER EXTREMITY BILATERAL Schedule Routine, Read Routine (OP Routine) 02/17/2025 1:30 PM CDT Encounter for surgical aftercare following surgery on the circulatory system US CAROTIDS DUPLEX BILATERAL Schedule Routine, Read Routine (OP Routine) 02/17/2025 12:05 PM CDT Carotid stenosis, bilateral XR SCAPULA LEFT COMPLETE Schedule Routine, Read Routine (OP Routine) 01/24/2025 3:00 PM CDT Closed fracture of rim of glenoid fossa of left scapula, initial encounter XR SHOULDER LEFT 2 OR MORE VIEWS Schedule Routine, Read Routine (OP Routine) 01/21/2025 2:54 PM CDT XR TIBIA FIBULA RIGHT2 VIEWS Schedule Routine, Read Routine (OP Routine) 01/17/2025 3:32 PM CDT PAD (peripheral artery disease) Multiple open wounds of left lower extremity, initial encounter TISSUE AEROBIC AND ANAEROBIC CULTURE AND GRAM STAIN Routine 01/17/2025 2:50 PM CDT COLONOSCOPY 10/29/2024 11:25 AM CDT HEPATITIS PANEL, ACUTE Routine 04/28/2024 12:48 AM CDT from Last 3 Months or Most Recently Relevant to Health Maintenance Results * aPTT (04/01/2025 2:32 PM CDT) aPTT 29 26 - 38 sec [facility] ([place]) Comment: Interpretive Data Heparin therapeutic range: 66.0 - 100.0 seconds. Range based on correlation with therapeutic heparin activity range of 0.3 - 0.7 Units/mL. Current interpretive data was last revised on 2023. Blood 04/01/2025 2:32 PM CDT 04/01/2025 2:34 PM CDT Miko Richmond MD LAB BLOOD ORDERABLES Final Result Performing Organization Address [facility] Co de Phone Number [facility] ([place]) [address] [facility] [employer] [address] * Protime-INR (04/01/2025 2:32 PM CDT) PT 11.9 10.2 - 13.5 sec [facility] ([place]) INR 1.05 0.90 - 1.20 [facility] ([place]) Comment: Interpretive data Oral anticoagulant therapeutic ranges: Venous thromboembolism prophylaxis or treatment: 2.0-3.0 CARDIOLOGY Standard range: 2.0-3.0 High-intensity range: 2.5-3.5 Refer to indication-specific guidelines for appropriate target ranges for prosthetic heart valve replacement. Current interpretive data was last revised on 2019. Blood 04/01/2025 2:32 PM CDT 04/01/2025 2:34 PM CDT Miko Richmond MD LAB BLOOD ORDERABLES Final Result Performing Organization Address City/[facility] [address]/ZIP Co de Phone Number [facility] ([place]) [address] [facility] [place] [place] [address] * (ABNORMAL) CBC without differential (04/01/2025 2:32 PM CDT) WBC 11.95(H) 3.80 - 9.90 K/cumm Hgb 12.8(L) 13.0 - 17.5 g/dL [facility] ([place]) Hct 38.2(L) 38.9 - 50.3 % [facility] ([place]) Plt 204 150 - 400 K/cumm [facility] ([place]) MPV 8.9(L) 9.1 - 12.3 fL [facility] ([place]) RBC 4.22(L) 4.30 - 5.80 M/cumm [facility] ([place]) MCV 90.5 81.3 - 96.4 fL [facility] ([place]) MCH 30.3 27.1 - 33.3 pg [facility] ([place]) MCHC 33.5 32.3 - 35.7 g/dL [facility] ([place]) RDW CV 14.3 11.1 - 14.9 % [facility] ([place]) RDW SD 47.6 35.7 - 48.[address] [facility] ([place]) NRBC abs 0.00 0.00 - 0.01 K/cumm [facility] ([place] Blood 04/01/2025 2:32 PM CDT 04/01/2025 2:34 PM CDT us Miko Richmond MD LAB BLOOD ORDERABLES Final Result [facility] [address] [facility] [place] [address] * (ABNORMAL) Tissue aerobic and anaerobic culture and gram stain Tissue Leg, right (03/10/2025 3:21 PM CDT) Direct Specimen Exam Stain: Few polymorphonuclear leukocytes seen. Moderate Gram Negative Bacilli Comment:Testing performed by : [facility], [address] [facility], [place]., [address] Report Final Report: Moderate Mixed aerobic and anaerobic microorganisms Includes the following: Moderate Proteus mirabilis Moderate Morganella morganii Few Pseudomonas aeruginosa (.) [facility] ([place]) Comment:Testing performed by : [facility], [address] [facility], [place]., [address] Organism PROTEUS MIRABILIS CE [facility] ([place]) Organism MIXED AEROBIC AND ANAEROBIC MICROORGANISMS [facility] ([place]) Organism MORGANELLA MORGANII [facility] ([place]) Organism PSEUDOMONAS AERUGINOSA [facility] ([place]) Tissue (Leg, right) 03/10/2025 3:21 PM CDT 03/11/2025 11:29 AM CDT Narrative [facility] ([place]) - 03/22/2025 3:11 PM CDT Testing performed by [facility] Microbiology Laboratory ([phone]) Specimens submitted from normally sterile body sites will have all bacterial morphotypes identified. Specimens that contain grossly mixed tianna and/or are from body sites that are not normally sterile will be examined for Staphylococcus aureus, Pseudomonas aeruginosa, beta-hemolytic strep, vancomycin-resistant Enterococcus, Bacteroides, Parabacteroides, Clostridium perfringens and fungus. If any of these are isolated, the organism will be reported. Current interpretive data was last revised on 2019. Organism Antibiotic Method Susceptibility Proteus mirabilis Ampicillin INTERPRETATION Susceptible Proteus mirabilis Cefazolin INTERPRETATION Susceptible Proteus mirabilis Gentamicin INTERPRETATION Susceptible Proteus mirabilis Ampicillin with Sulbactam INTERPRETA TION Susceptible Proteus mirabilis Trimethoprim with Sulfamethoxazole INTERPRETATION Susceptible Proteus mirabilis Meropenem INTERPRETATION Susceptible Proteus mirabilis Cefepime INTERPRETATION Susceptible Proteus mirabilis Ciprofloxacin INTERPRETATION Resistant Proteus mirabilis Ceftazidime INTERPRETATION Susceptible Proteus mirabilis Ceftriaxone INTERPRETATION Susceptible Proteus mirabilis Piperacillin/Tazobactam INTERPRETATI ON Susceptible Morganella morganii Ampicillin INTERPRETATION Resistant Morganella morganii Cefazolin INTERPRETATION Resistant Morganella morganii Gentamicin INTERPRETATION Susceptible Morganella morganii Ampicillin with Sulbactam INTERPRE TATION Resistant Morganella morganii Trimethoprim with Sulfamethoxazole INTERPRETATION Resistant Morganella morganii Meropenem INTERPRETATION Susceptible Morganella morganii Cefepime INTERPRETATION Susceptible Morganella morganii Ciprofloxacin INTERPRETATION Resistant Morganella morganii Ceftazidime INTERPRETATION Susceptible Morganella morganii Ceftriaxone INTERPRETATION Susceptible Morganella morganii Piperacillin/Tazobactam INTERPRETA TION Susceptible Pseudomonas aeruginosa Aztreonam INTERPRETATION Susceptible Pseudomonas aeruginosa Ceftazidime INTERPRETATION Susceptible Pseudomonas aeruginosa Ciprofloxacin INTERPRETATION Susceptible Pseudomonas aeruginosa Cefepime INTERPRETATION Susceptible Pseudomonas aeruginosa Imipenem INTERPRETATION Susceptible Pseudomonas aeruginosa Meropenem INTERPRETATION Susceptible Pseudomonas aeruginosa Piperacillin/Tazobactam INTERPR ETATION Susceptible Pseudomonas aeruginosa Tobramycin INTERPRETATION Susceptible us Kyle Ndiaye MD LAB MICROBIOLOGY - GENERAL ORDERABLES Final Result [facility]) [address] [facility] [place] [address] * US Arterial Duplex Lower Extremity Right Limited (02/17/2025 2:34 PM CDT) Anatomical Region Laterality Modality Vascular Right Ultrasound 02/17/2025 4:29 PM CDT Addenda Addendum by Juanita Crandall MD on 02/20/2025 12:06 PM CDT Correct exam is RIGHT LOWER EXTREMITY ARTERY DUPLEX WITH ABIS TECHNIQUE: Standard technique was employed for right lower extremity arterial duplex with ABIs including grayscale and color Doppler images with spectral waveform analysis. Edited by: Luis Antonio Woods Electronically signed by: Juanita Spencer MD Impressions 02/17/2025 4:29 PM CDT RIGHT LEG: Status post SFA revascularization with a patent stent and monophasic flows throughout the right lower extremity vasculature. There are scattered areas of increased velocity involving femoral and popliteal arteries. Interval decrease of ERIC, now measuring 0.78, compared to 1.04 in the prior exam on 11/18/2024. Interval decrease of TBI, now measuring 0.37, compared to 0.90 in the prior exam. Electronically signed by: Juanita Spencer MD Narrative 02/17/2025 4:29 PM CDT EXAMINATION: BILATERAL LOWER EXTREMITY ARTERY DUPLEX WITH ABIS DATE: 02/17/2025 11:00 AM HISTORY: Encounter for Surgical Aftercare Following Surgery on the Circulatory System COMPARISON: prior duplex from 11/18/2024 TECHNIQUE: Standard technique was employed for bilateral lower extremity arterial duplex with ABIs including grayscale and color Doppler images with spectral waveform analysis. FINDINGS: SITE WAVEFORM RT FEMORAL monophasic, moderate increased velocity RT P. FEMORAL Monophasic RT S. FEMORAL Monophasic, patent stent RT POPLITEAL monophasic, yeoz-qz-hckygrtn increased velocity in the proximal segment RT POST TIBIAL Monophasic, decreased flow RT ANT TIBIAL Monophasic RT BOGDAN PED Monophasic SITE PRESSURE INDEX RT BRACHIAL 124 RT ANKLE PT 97 0.78 RT ANKLE DP 91 0.73 RT DIGIT 46 0.37 Procedure Note Juanita Crandall MD - 02/17/2025 EXAMINATION: BILATERAL LOWER EXTREMITY ARTERY DUPLEX WITH ABIS DATE: 02/17/2025 11:00 AM HISTORY: Encounter for Surgical Aftercare Following Surgery on the Circulatory System COMPARISON: prior duplex from 11/18/2024 TECHNIQUE: Standard technique was employed for bilateral lower extremity arterial duplex with ABIs including grayscale and color Doppler images with spectral waveform analysis. FINDINGS: SITE WAVEFORM RT FEMORAL monophasic, moderate increased velocity RT P. FEMORAL Monophasic RT S. FEMORAL Monophasic, patent stent RT POPLITEAL monophasic, yziz-ge-ujpuiida increased velocity in the proximal segment RT POST TIBIAL Monophasic, decreased flow RT ANT TIBIAL Monophasic RT BOGDAN PED Monophasic SITE PRESSURE INDEX RT BRACHIAL 124 RT ANKLE PT 97 0.78 RT ANKLE DP 91 0.73 RT DIGIT 46 0.37 IMPRESSION: RIGHT LEG: Status post SFA revascularization with a patent stent and monophasic flows throughout the right lower extremity vasculature. There are scattered areas of increased velocity involving femoral and popliteal arteries. Interval decrease of ERIC, now measuring 0.78, compared to 1.04 in the prior exam on 11/18/2024. Interval decrease of TBI, now measuring 0.37, compared to 0.90 in the prior exam. Electronically signed by: Juanita Spencer MD us Javon Elliott MD IMChelo US PROCEDURES Edited Res ult - Final * US ERIC And Arterial Doppler Lower Extremity Bilateral (02/17/2025 1:30 PM CDT) Anatomical Region Laterality Modality Vascular Bilateral Ultrasound 02/17/2025 4:29 PM CDT Addenda Addendum by Juanita Crandall MD on 02/20/2025 12:06 PM CDT Correct exam is RIGHT LOWER EXTREMITY ARTERY DUPLEX WITH ABIS TECHNIQUE: Standard technique was employed for right lower extremity arterial duplex with ABIs including grayscale and color Doppler images with spectral waveform analysis. Edited by: Luis Antonio Woods Electronically signed by: Juanita Spencer MD Impressions 02/17/2025 4:29 PM CDT RIGHT LEG: Status post SFA revascularization with a patent stent and monophasic flows throughout the right lower extremity vasculature. There are scattered areas of increased velocity involving femoral and popliteal arteries. Interval decrease of ERIC, now measuring 0.78, compared to 1.04 in the prior exam on 11/18/2024. Interval decrease of TBI, now measuring 0.37, compared to 0.90 in the prior exam. Electronically signed by: Juanita Spencer MD Narrative 02/17/2025 4:29 PM CDT EXAMINATION: BILATERAL LOWER EXTREMITY ARTERY DUPLEX WITH ABIS DATE: 02/17/2025 11:00 AM HISTORY: Encounter for Surgical Aftercare Following Surgery on the Circulatory System COMPARISON: prior duplex from 11/18/2024 TECHNIQUE: Standard technique was employed for bilateral lower extremity arterial duplex with ABIs including grayscale and color Doppler images with spectral waveform analysis. FINDINGS: SITE WAVEFORM RT FEMORAL monophasic, moderate increased velocity RT P. FEMORAL Monophasic RT S. FEMORAL Monophasic, patent stent RT POPLITEAL monophasic, [id number] increased velocity in the proximal segment RT POST TIBIAL Monophasic, decreased flow RT ANT TIBIAL Monophasic RT BOGDAN PED Monophasic SITE PRESSURE INDEX RT BRACHIAL 124 RT ANKLE PT 97 0.78 RT ANKLE DP 91 0.73 RT DIGIT 46 0.37 Procedure Note Juanita Crandall MD - 02/17/2025 EXAMINATION: BILATERAL LOWER EXTREMITY ARTERY DUPLEX WITH ABIS DATE: 02/17/2025 11:00 AM HISTORY: Encounter for Surgical Aftercare Following Surgery on the Circulatory System COMPARISON: prior duplex from 11/18/2024 TECHNIQUE: Standard technique was employed for bilateral lower extremity arterial duplex with ABIs including grayscale and color Doppler images with spectral waveform analysis. FINDINGS: SITE WAVEFORM RT FEMORAL monophasic, moderate increased velocity RT P. FEMORAL Monophasic RT S. FEMORAL Monophasic, patent stent RT POPLITEAL monophasic, [id number] increased velocity in the proximal segment RT POST TIBIAL Monophasic, decreased flow RT ANT TIBIAL Monophasic RT BOGDAN PED Monophasic SITE PRESSURE INDEX RT BRACHIAL 124 RT ANKLE PT 97 0.78 RT ANKLE DP 91 0.73 RT DIGIT 46 0.37 IMPRESSION: RIGHT LEG: Status post SFA revascularization with a patent stent and monophasic flows throughout the right lower extremity vasculature. There are scattered areas of increased velocity involving femoral and popliteal arteries. Interval decrease of ERIC, now measuring 0.78, compared to 1.04 in the prior exam on 11/18/2024. Interval decrease of TBI, now measuring 0.37, compared to 0.90 in the prior exam. Electronically signed by: Juanita Spencer MD Javon Elliott MD IMG US PROCEDURES Edited Res ult - Final * US Carotids Duplex Bilateral (02/17/2025 12:05 PM CDT) Anatomical Region Laterality Modality Vascular Bilateral Ultrasound 02/17/2025 1:21 PM CDT Impressions 02/17/2025 1:21 PM CDT 1. 80-99% stenosis in the right internal carotid artery based on peak systolic velocities and ICA to CCA ratio. 2. Complete occlusion of the left ICA. 3. Retrograde flow in the left ECA those portions of the proximal, mid, and distal segments of the left internal carotid artery. 4. Right vertebral artery not definitively visualized. Cannot exclude occlusion. Electronically signed by: James Whitley II, D.O. Narrative 02/17/2025 1:21 PM CDT EXAMINATION: BILATERAL CAROTID DUPLEX EXAM DATE: 02/17/2025 1:00 PM HISTORY: Carotid stenosis. TECHNIQUE: A bilateral carotid duplex imaging evaluation was performed using grayscale, color and spectral images. NASCET-based methodology was used. FINDINGS: On the right, the common carotid artery peak systolic velocity is 74 cm/s. The right internal carotid artery peak systolic velocities are 426 cm/s proximally, 93 cm/s within the midportion, and 62 cm/s distally. The right internal carotid artery to common carotid artery ratio is 5.76. The estimated percent stenosis of the right internal carotid artery is 80-99%. [] On the left, the common carotid artery peak systolic velocity is 42 cm/s. The left internal carotid artery peak systolic velocities are 61 cm/s proximally, 37 cm/s within the midportion, and 77 cm/s distally. The left internal carotid artery to common carotid artery ratio is not applicable. The proximal left ICA near the origin is completely occluded. Right vertebral artery not definitively visualized. Antegrade flow in the left vertebral artery. Procedure Note James Whitley II, DO - 02/17/2025 EXAMINATION: BILATERAL CAROTID DUPLEX EXAM DATE: 02/17/2025 1:00 PM HISTORY: Carotid stenosis. TECHNIQUE: A bilateral carotid duplex imaging evaluation was performed using grayscale, color and spectral images. NASCET-based methodology was used. FINDINGS: On the right, the common carotid artery peak systolic velocity is 74 cm/s. The right internal carotid artery peak systolic velocities are 426 cm/s proximally, 93 cm/s within the midportion, and 62 cm/s distally. The right internal carotid artery to common carotid artery ratio is 5.76. The estimated percent stenosis of the right internal carotid artery is 80-99%. [] On the left, the common carotid artery peak systolic velocity is 42 cm/s. The left internal carotid artery peak systolic velocities are 61 cm/s proximally, 37 cm/s within the midportion, and 77 cm/s distally. The left internal carotid artery to common carotid artery ratio is not applicable. The proximal left ICA near the origin is completely occluded. Right vertebral artery not definitively visualized. Antegrade flow in the left vertebral artery. IMPRESSION: 1. 80-99% stenosis in the right internal carotid artery based on peak systolic velocities and ICA to CCA ratio. 2. Complete occlusion of the left ICA. 3. Retrograde flow in the left ECA those portions of the proximal, mid, and distal segments of the left internal carotid artery. 4. Right vertebral artery not definitively visualized. Cannot exclude occlusion. Electronically signed by: James Whitley II, D.O. Javon Elliott MD [facility] US PROCEDURES Final Resu lt * X-ray scapula left (01/24/2025 3:00 PM CDT) Anatomical Region Laterality Modality Scapula, Body Left Computed Radiogr aphy 01/24/2025 4:18 PM CDT Impressions 01/24/2025 4:18 PM CDT Small ossific fragments projecting over the left humeral head/neck at the level of the inferior glenoid are indeterminate and could represent heterotopic ossification and/or small osteophyte. Given that the glenohumeral joint is poorly profiled, consider correlation with the outside shoulder radiographs and/or further evaluation with CT if there is high index of suspicion for intra-articular glenoid fracture The radiology attending physician has personally reviewed this study, and had reviewed and/or edited this written report and agrees with it. Electronically signed by: Eder Galvan M.D. Narrative 01/24/2025 4:18 PM CDT EXAMINATION: XR SCAPULA LEFT COMPLETE HISTORY: Reported left glenoid fracture. COMPARISON: None. FINDINGS: Grossly normal alignment of osseous structures. The glenohumeral joint is not well profiled. Mild acromioclavicular joint osteophyte. Multiple ossific fragments projecting over the humeral head/neck the level of the inferior glenoid appear corticated could represent heterotopic ossification and/or small osteophytes. There is no definite evidence of acute scapular fracture. There is an old, healed distal left clavicle fracture. Procedure Note Eder Galvan MD - 01/24/2025 EXAMINATION: XR SCAPULA LEFT COMPLETE HISTORY: Reported left glenoid fracture. COMPARISON: None. FINDINGS: Grossly normal alignment of osseous structures. The glenohumeral joint is not well profiled. Mild acromioclavicular joint osteophyte. Multiple ossific fragments projecting over the humeral head/neck the level of the inferior glenoid appear corticated could represent heterotopic ossification and/or small osteophytes. There is no definite evidence of acute scapular fracture. There is an old, healed distal left clavicle fracture. IMPRESSION: Small ossific fragments projecting over the left humeral head/neck at the level of the inferior glenoid are indeterminate and could represent heterotopic ossification and/or small osteophyte. Given that the glenohumeral joint is poorly profiled, consider correlation with the outside shoulder radiographs and/or further evaluation with CT if there is high index of suspicion for intra-articular glenoid fracture The radiology attending physician has personally reviewed this study, and had reviewed and/or edited this written report and agrees with it. Electronically signed by: Eder Galvan M.D. James Osorio MD IMG XR PROCEDURES Final Result * XR Shoulder Left 2 or More Views (01/21/2025 2:54 PM CDT) Anatomical Region Laterality Modality Upper Extremities, Shoulder Left Radi ographic Imaging Historical Provider [facility] XR PROCEDURES Final R esult * XR Tibia Fibula Right 2 Views (01/17/2025 3:32 PM CDT) Anatomical Region Laterality Modality Lower Extremities, Lower Leg Right Com puted Radiography 01/21/2025 5:23 PM CDT Narrative 01/21/2025 5:25 PM CDT EXAM DESCRIPTION: XR TIBIA FIBULA RIGHT2 VIEWS REASON FOR STUDY: wound Wound to distal lateral aspect of R lower leg x 1 year. Hx of injury/surgery to R distal femur x 2 years ago. No known conditions. Hx of LLE amputation. TECHNIQUE: 2 radiographic view(s) of the right tibia fibula . COMPARISON: None FINDINGS: BONES/JOINTS: There is no acute fracture, malalignment or osseous abnormality. Stable hardware in the distal femur and proximal tibia. Severe degenerative change in the knee joint and ankle joint. SOFT TISSUES: Severe atheromatous vascular calcifications. Soft tissue ulceration distal lower extremity has resolved. IMPRESSION: 1. No acute osseous abnormality. THIS IS AN ELECTRONICALLY VERIFIED FINAL REPORT 01/21/2025 5:25 PM - Electronically signed by Kristian Wright M.D. RW: JUAN Report ID: [id number] Reading Location: [id number] Procedure Note Kristian Wright MD - 01/21/2025 EXAM DESCRIPTION: XR TIBIA FIBULA RIGHT2 VIEWS REASON FOR STUDY: wound Wound to distal lateral aspect of R lower leg x 1 year. Hx ofinjury/surgery to R distal femur x 2 years ago. No known conditions. Hx of LLE amputation. TECHNIQUE: 2 radiographic view(s) of the right tibia fibula . COMPARISON: None FINDINGS: BONES/JOINTS: There is no acute fracture, malalignment or osseousabnormality. Stable hardware in the distal femur and proximal tibia. Severedegenerative change in the knee joint and ankle joint. SOFT TISSUES: Severe atheromatous vascular calcifications. Soft tissue ulceration distal lower extremity has resolved. IMPRESSION: 1. No acute osseous abnormality. THIS IS AN ELECTRONICALLY VERIFIED FINAL REPORT 01/21/2025 5:25 PM - Electronically signed by Kristian Wright M.D. RW: JUAN Report ID: [id number] Reading Location: [id number] William Pressley MD IMG XR PROCEDURES Final Result * (ABNORMAL) Tissue aerobic and anaerobic culture and gram stain Tissue Leg, right (01/17/2025 2:50 PM CDT) Direct Specimen Exam Stain: No polymorphonuclear leukocytes seen. No organisms seen. Comment:Testing performed by : [facility], [address] [place] [address] Report Final Report: Few Pseudomonas aeruginosa Rare Mixed microorganisms. (.) GEOFF JIM (ENRRIQUE) Comment:Testing performed by : [facility], [address] [place]., [address] Organism MIXED MICROORGANISMS. GEOFF JIM (ENRRIQUE) Organism PSEUDOMONAS AERUGINOSA GEOFF JIM (ENRRIQUE) Tissue (Leg, right) 01/17/2025 2:50 PM CDT 01/17/2025 6:13 PM CDT Narrative GEOFF JIM (ENRRIQUE) - 01/23/2025 1:10 PM CDT Testing performed by [facility] ([phone]) Specimens submitted from normally sterile body sites will have all bacterial morphotypes identified. Specimens that contain grossly mixed tianna and/or are from body sites that are not normally sterile will be examined for Staphylococcus aureus, Pseudomonas aeruginosa, beta-hemolytic strep, vancomycin-resistant Enterococcus, Bacteroides, Parabacteroides, Clostridium perfringens and fungus. If any of these are isolated, the organism will be reported. Current interpretive data was last revised on 2019. Organism Antibiotic Method Susceptibility Pseudomonas aeruginosa Aztreonam INTERPRETATION Intermediate Pseudomonas aeruginosa Ceftazidime INTERPRETATION Susceptible Pseudomonas aeruginosa Ciprofloxacin INTERPRETATION Susceptible Pseudomonas aeruginosa Cefepime INTERPRETATION Susceptible Pseudomonas aeruginosa Imipenem INTERPRETATION Susceptible Pseudomonas aeruginosa Meropenem INTERPRETATION Susceptible Pseudomonas aeruginosa Piperacillin/Tazobactam INTERPR ETATION Susceptible Pseudomonas aeruginosa Tobramycin INTERPRETATION Susceptible us William Pressley MD LAB MICROBIOLOGY - GENERAL ORDERABLES Final Result [facility] [address] [facility] [place] [address] * Colonoscopy (10/29/2024 11:25 AM CDT) Anatomical Region Laterality Modality Other Narrative Procedure Note Moraima Sarmiento MD - 10/29/2024 11:25 AM CDT [facility] Patient Name: Gilbert Virgen Procedure Date: 10/29/2024 11:25 AM Date of : 1965 Admit Type: Outpatient Age: 59 Gender: Male Attending MD: Moraima Sarmiento M.D. Room: [facility] 1 Note Status: Finalized Patient Profile: This is a 59 year old male. No family h/o colon cancer. 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 Procedure: Colonoscopy Indications: Screening for colorectal malignant neoplasm, Thisis the patient's first colonoscopy Referring MD: Kyle Ndiaye M.D. Providers: Moraima Sarmiento M.D. Impression: - One 3 mm polyp in the cecum, removed with a jumbo cold forceps. Resected and retrieved. - Five 8 to 15 mm polyps in the descending colon, removed with a cold snare. Resected and retrieved. Clip (MR conditional) was placed. Clipmanufacturer: [employer]. - Two 12 to 15 mm polyps in the sigmoid colon,removed with a hot snare. Resected and retrieved. Clips (MR conditional) were placed. Clip helper shear operator: [employer]. - Internal hemorrhoids. Recommendation: - Await pathology results. - Repeat colonoscopy in 2 years for surveillance. - Resume Plavix (clopidogrel) at prior dose in 2days. Medicines: Monitored Anesthesia Care Complications: No immediate complications. Estimated Blood Loss: Estimated blood loss: none. Procedure: Pre-Anesthesia Assessment: - Prior to the procedure, a History and Physicalwas performed, and patient medications and allergieswere reviewed. The patient's tolerance of previous anesthesia was also reviewed. The risks andbenefits of the procedure and the sedation options and risks were discussed with the patient. All questions were answered, and informed consent was obtained. Prior Anticoagulants: The patient has taken noanticoagulant or antiplatelet agents. ASA Grade Assessment: Per anesthesia note and evaluation. After reviewing the risks and benefits, the patient was deemed in satisfactory condition to undergo the procedure. The benefits, risks and alternatives of theprocedure and sedation were discussed and informed consentwas obtained. All questions were answered. Please referto the signed informed consent document in the medical record. The bowel preparation used was Miralax and bisacodyl tablets via extended prep with split dose instruction. The scope was passed under directvision. The Pediatric Colonoscope PCF-H190L [id number] was introduced through the anus and advanced to the the cecum, identified by appendiceal orifice andileocecal valve. The quality of the bowel preparation wasgood. Bowel prep was administered using a split dose. Findings: The perianal and digital rectal examinations were normal. The appendiceal orifice appeared normal. A 3 mm polyp was found in the cecum. The polyp was semi-sessile. The polyp was removed with a jumbo cold forceps. Resection and retrieval were complete. The transverse colon and ascending colon appeared normal. Five sessile polyps were found in the descending colon. The polypswere 8 to 15 mm in size. These polyps were removed with a cold snare. Resection and retrieval were complete. To prevent bleeding after the polypectomy, one hemostatic clip was successfully placed (MR conditional). Clip helper shear operator: [employer]. There was no bleeding at the end of the procedure. Two sessile polyps were found in the sigmoid colon. The polyps were12 to 15 mm in size. These polyps were removed with a hot snare.Resection and retrieval were complete. To prevent bleeding after thepolypectomy, two hemostatic clips were successfully placed (MR conditional). Clip helper shear operator: [employer]. There was no bleeding at the end ofthe procedure. Internal hemorrhoids were found during retroflexion. The hemorrhoids were medium-sized. Electronically signed by Moraima Sarmiento M.D. Moraima Sarmiento M.D. 10/29/2024 1:05:43 PM Number of Addenda: 0 Note Initiated On: 10/29/2024 11:25 AM Procedure Code(s): --- Professional --- 92252, Colonoscopy, flexible; with removal of tumor(s), polyp(s), or other lesion(s) by snare technique 90026, 59, Colonoscopy, flexible; with biopsy, single or multiple Diagnosis Code(s): --- Professional --- Z12.11, Encounter for screening for malignant neoplasm of colon K64.8, Other hemorrhoids D12.0, Benign neoplasm of cecum D12.4, Benign neoplasm of descending colon D12.5, Benign neoplasm of sigmoid colon CPT copyright 2020 [employer]. All rights reserved. The codes documented in this report are preliminary and upon sas developer analyst reviewmay be revised to meet current compliance requirements. Recognized by the [employer] for promoting quality in endoscopy Moraima Sarmiento MD ENDOSCOPY PROCEDURES Final Result * (ABNORMAL) Hepatitis panel, acute Blood (04/28/2024 12:48 AM CDT) Hep A IgM Nonreactive Nonreactive Hep B core IgM Nonreactive Nonreactive [facility] Hep C Ab Reactive(A) Nonreactive [facility] Comment: Reactive for HCV antibodies. This may represent current or past HCV infection. Supplemental molecular testing will be automatically performed to determine current infection status in accordance with current CDC screening recommendations. Current interpretive data was last revised on 22 HepBsAg Nonreactive Nonreactive [facility] Blood 04/28/2024 12:4 8 AM CDT 04/28/2024 1:05 AM CDT us Merrill Busby MD LAB MICROBIOLOGY - NERAL ORDERABLES Final Result [facility] Department [place] [address] from Last 3 Months or Most Recently Relevant to Health Maintenance Insurance [facility] Advance Directives For more information, please contact: [phone] * Full Code (Latest Code Status on File) Date Activated Date Inactivated Comments 10/29/2024 11:13 AM 10/29/2024 6:30 PM * Full Code Date Activated Date Inactivated Comments 10/28/2024 9:59 AM 10/28/2024 2:30 PM * Full Code Date Activated Date Inactivated Comments 08/09/2024 8:58 PM 08/16/2024 7:01 PM * LIMITED - No CPR Date Activated Date Inactivated Comments 08/09/2024 8:58 PM 08/09/2024 8:58 PM * LIMITED - No CPR Date Activated Date Inactivated Comments 06/25/2024 11:15 AM 06/29/2024 12:26 AM Question Answer Comments Provide aggressive medical m anagement before a full cardiopulmonary arrest occurs. Use antibiotics, IV Fluids, and medical treatment unless specifically selected below: No intubationNo non-invasive ventilationNo cardioversionNo internal / external pacemaker Discussed with the following attending physician: Lizzy Paniagua Care Teams Bottom Liner Relationship Specialty Start Date End Date Kyle Ndiaye MD PCP - General 07/17/21 Kiran Snyder MD [address] [facility] [address] [place] [address] Surgeon Vascular Surgery 09/16/22 Juarez Patricia MD [address] [facility] [address] [place] [address] Consulting Physician Cardiology 09/29/23 [place] [id number] [place] [address] Consulting Physician Vascular Surgery 05/23/24
--- OUTSIDE RECORDS SUMMARY | 2025-04-10 13:41 | XMS_ITS | Encounter Summary ---
Author Organization [facility] Address [address] [place] [address] Phone Care Team Providers Care Spinner Fixer Name Role Phone Sander Griffiths Primary Care Provider [phone] Reason for Visit * Reason Onset Date Comments Medication Refill 09/30/2022 Encounter Details Date Type Department Care Team (Late st Contact Info) Description 09/30/2022 [facility] [address] [place] [address] Luis Tucker, GUN[address] [place], [place] [id number] Medication Refill Social History Tobacco Use Types Packs/Day Years Used Date Smoking Tobacco: Every Day Cigarettes Smokeless Tobacco: Never Sex and Gender Information Value Date Recorded Sex Assigned at Not on file Legal Sex Male 2:59 PM [employer] Gender Identity Not on file Sexual Orientation Not on file documented as of this encounter Plan of Treatment Not on file documented as of this encounter Visit Diagnoses Diagnosis Closed displaced fracture of distal epiphysis of right femur with routine healing, subsequent encounter- Primary documented in this encounter Care Teams Spinner Fixer Relationship Specialty Start Date End Date Sander Griffiths PAC [address] [place] [address] PCP - General Internal Medicine 05/17/18 documented as of this encounter
== END 2025-04-10 13:31 | disposition home or self-care (01) ==
LOC: ANHAUDASC 13:31
PROVIDERS: PCP Family Medicine Adolescent Medicine; Visit Provider Otolaryngology
DX: H65.91 Unspecified nonsuppurative otitis media, right ear (principal); H90.11 Conductive hearing loss, unilateral, right ear, with unrestricted hearing on the contralateral side; H69.91 Unspecified Eustachian tube disorder, right ear; H90.42 Sensorineural hearing loss, unilateral, left ear, with unrestricted hearing on the contralateral side; H90.71 Mixed conductive and sensorineural hearing loss, unilateral, right ear, with unrestricted hearing on the contralateral side
CPT/HCPCS: 92557; 92567